=== PATIENT | female | born 1990 | race Caucasian/White ===

== ENCOUNTER 2019-08-22 11:49 | Outpatient (CLI) | payer OTHER, SELFPAY | END 2019-08-22 11:50 | disposition home or self-care (01) | PROVIDERS: PCP Family Medicine; Visit Provider Dentist | DX: Z01.818 Encounter for other preprocedural examination (principal); Z11.59 Encounter for screening for other viral diseases | CPT/HCPCS: 87635; U0003 ==

== ENCOUNTER 2019-08-25 01:09 | Day surgery (SDC) | payer OTHER, SELFPAY ==
[2019-04-29 10:34] VITALS: BMI 17.5
--- NOTE | 2019-08-17 18:04 | PC.NURSE ---
Patient called at 1740. History and meds reviewed. Patient states, no changes.
[2019-08-25] VITALS (13 sets, daily range): BP systolic 99–129; BP diastolic 55–88; PULSE 65–120; RESP 14–26; TEMP 36.3–36.8; O2SAT 95–100
[2019-08-25] MEDS: LACTATED RINGERS 1,000 ML 30 ML IV CONT ×2 (06:30→08:17)
--- NOTE | 2019-08-25 06:42 | P.PNAN_ITS ---
Anes - Initial Pre Proc Eval Procedure: Operation Date: 08/25/19 07:30 Proposed Procedures p Extraction Five Impacted Teeth - Srikanth Hudson DMD Date/Time: 08/25/19 06:42 Surgeon: Srikanth Hudson DMD Pre Op Diagnosis: Impacted Teeth, Dental Caries Patient Data Age: 29 Gender: F Height: 1.7 m Weight: 53.4 kg Last Vital Signs Temp 36.8 C 08/25/19 06:13 Pulse 83 08/25/19 06:13 Resp 16 08/25/19 06:13 BP 99/65 L 08/25/19 06:13 Pulse Ox 99 08/25/19 06:13 Allergies Allergy/AdvReac Type Severity Reaction Status Date / Time Penicillins Allergy Unknown UNKNOWN Unverified 08/25/19 06:22 REACTION tari Allergy THROAT Verified 08/25/19 06:22 SWELLING, FACIAL SWELLING Home Medications Medication Instructions Recorded Confirmed Type calcium carbonate-vitamin D3 1 tablet PO BID 04/29/19 08/25/19 History [Calcium 500 + D] dicyclomine 10 mg PO TID 04/29/19 08/25/19 History levetiracetam [Keppra] 1,500 mg PO BID 04/29/19 08/25/19 History eslicarbazepine [Aptiom] 600 mg PO DAILY 06/08/19 08/25/19 History Patient hx anesthesia problems: none Family hx anesthesia problems: none [facility] Past Medical History Medical History (Updated 08/25/19 @ 06:43 by Travis Fatima DO) IBS (irritable bowel syndrome) Seizure epilepsy, last one one month ago (focal seizure) takes daily meds Social History Social History (Updated 08/25/19 @ 06:43 by Travis Fatima DO) Substance use type: marijuana Other substance usage details: daily Anes - Eval Final PreProcedure Day of Procedure 08/25/19 06:42 Patient weight: thin Heart: regular rate and rhythm Lungs: clear to auscultation and normal air movement Airway: Mallampati scale class II Neurological: alert and oriented Last oral intake: >/= 8 hours ASA classification: III Emergent: no Anesthetic plan: proceed Anesthesia type and monitoring: general ETT and standard monitoring Informed Consent: The patient's anesthetic plan and its attendant risks and benefits were discussed with the patient/family/POA. Questions were solicited and answers provided to the satisfaction of the patient/family/POA.
--- NOTE | 2019-08-25 07:38 | PM.IMHP ---
H&P: HPI History of Present Illness Chief complaint: Impacted Teeth, Dental Caries Narrative: Melissa hSin is a 29 year old female referred for removal ,,,32 PMFSH Past Medical History Medical History (Updated 08/25/19 @ 07:39 by Srikanth Hudson, DMITRY) IBS (irritable bowel syndrome) Seizure epilepsy, last one one month ago (focal seizure) takes daily meds Social History Social History (Updated 08/25/19 @ 06:43 by Travis Fatima, ) Substance use type: marijuana Other substance usage details: daily Meds Home Medications and Allergies Home Medications Medication Instructions Recorded Confirmed Type calcium carbonate-vitamin D3 1 tablet PO BID 04/29/19 08/25/19 History [Calcium 500 + D] dicyclomine 10 mg PO TID 04/29/19 08/25/19 History levetiracetam [Keppra] 1,500 mg PO BID 04/29/19 08/25/19 History eslicarbazepine [Aptiom] 600 mg PO DAILY 06/08/19 08/25/19 History Allergies Allergy/AdvReac Type Severity Reaction Status Date / Time Penicillins Allergy Unknown UNKNOWN Unverified 08/25/19 06:22 REACTION tari Allergy THROAT Verified 08/25/19 06:22 SWELLING, FACIAL SWELLING Vital Signs Vital Signs - 24 hr 08/25/19 06:13 Temperature 36.8 C Pulse Rate 83 Respiratory Rate 16 Blood Pressure 99/65 L Pulse Oximetry 99 Assessment and Plan Assessment and plan (1) Non-restorable tooth: Code(s): K08.89 - Other specified disorders of teeth and supporting structures Status: Acute Assessment and Plan: sr 1,16,17,32
[2019-08-25] MEDS: LIDOCAINE 2%-EPI (FOR DENTAL BLOCK) 1.7 ML CARTRIDGE INFILTRATE (07:59)
[2019-08-25] MEDS: ONDANSETRON INJ 4 MG/2 ML VIAL IV PUSH (08:51)
--- NOTE | 2019-08-25 09:04 | PM.PROC ---
Procedure Note - Detailed Date of procedure: 08/25/19 Pre-op diagnosis: Impacted Teeth, Dental Caries Surgeon: Srikanth Hudson DMD Patient is encountered the [employer] the anesthesia service induced a general anesthetic. Patient was draped in usual manner for an intraoral surgical procedure. Oral cavity suctioned free of debris and throat pack was placed. Local anesthetic administered. Fifteen blade was used to make a 3rd incision FT 1. Full-thickness flaps would buckle. Bone overlying the tooth was removed and the tooth was removed using elevator forceps technique without complication and the wound was curetted free of debris and irrigated copious amount sterile saline. Attention was turned to the area 16. Which was extracted in identical fashion. Attention was turned to the ear 17. Ref 3rd molar incision was made and a full-thickness flap was elevated to the buccal. Buccal trough was created in the tooth was sectioned into mesial distal halves removed using elevator and forceps technique without complication. Socket care free of debris and irrigated copious amount sterile saline. Of note the lingual plate was missing in the area of the crown of 17. Attention was turned to tooth number 32 which was extracted identical fashion and the same lingual plate defect was observed. Oral cavity suctioned free of debris and throat pack was removed. Ghost gauze plaques were placed and the patient was extubated and transferred recovery stable condition.
--- NOTE | 2019-08-25 09:50 | SUR.PHASEI ---
0945; PT TEARFUL. C/O PAIN TO LT SIDE OF MOUTH. SM AMT BLEEDING FROM MOUTH. BILAT GAUZE WESTON CHANGED PRN. PT ALSO C/O NAUSEA. MEDICATIONS GIVEN PRN.
--- NOTE | 2019-08-25 09:56 | SUR.PHASEI ---
0956; PT AWAKE AND ALERT. CALMER NOW. STATES PAIN BETTER AND NAUSEA IS RELIEVED. RESP EVEN UNLABORED.
--- NOTE | 2019-08-25 10:03 | SUR.PHASEI ---
LATE NOTED. CARE ASSUMED OF PT AT 0915; PT HAD 100ML OF LR LEFT TO COUNT IN 1LITER BAG OF IVF.
--- NOTE | 2019-08-25 10:05 | SUR.PHASEI ---
1005; PT AWAKE AND ALERT. CALM. DENIES NAUSEA. STATES PAIN MILD AND TOLERABLE. READY FOR A POPSICLE.
[2019-08-25] MEDS: MIDAZOLAM HCL 2 MG/2 ML VIAL IV PUSH (11:12)
== END 2019-08-25 11:44 | disposition home or self-care (01) ==
PROVIDERS: PCP Family Medicine; Visit Provider Dentist
PROC: (CPT 41899; principal; 2019-08-25 07:30)
DX: K01.1 Impacted teeth (principal); K02.9 Dental caries, unspecified; G40.909 Epilepsy, unspecified, not intractable, without status epilepticus; K58.9 Irritable bowel syndrome, unspecified; F12.90 Cannabis use, unspecified, uncomplicated
CPT/HCPCS: D7240 ×4; A9270; J0330; J1100; J1200; J2250; J2405; J2704; J3010; J7120

== ENCOUNTER 2022-05-04 14:49 | Emergency (ER) | payer OTHER, SELFPAY ==
--- NOTE | ~2022-05-04 | CT_ITS ---
EXAMINATION: CT abdomen pelvis w con DATE: 05/04/2022 22:20 INDICATION: Epigastric abdominal pain. Nausea and vomiting. TECHNIQUE: Computed tomography (CT) of the abdomen and pelvis was performed with 100 mL Omnipaque 350 intravenous contrast. Automated exposure control and iterative reconstruction technique were employe d. The dose-length product was 184.54 mGy-cm. COMPARISON: None. FINDINGS: The visualized portions of the lung bases demonstrate bronchiectasis and mucous plugging in left lower lobe. No pleural effusion. The heart size is normal. No pericardial effusion. There is pe riportal edema in the liver. The gallbladder, spleen, pancreas, adrenal glands, and kidneys are bhavani l. There is an intrauterine device in abnormally low position. The prongs enter the myometrium. The p eriuterine veins and left ovarian vein are enlarged, consistent with pelvic venous insufficiency. The re are no dilated loops of bowel. The appendix is normal. There are no pathologically enlarged lymph nodes. There is physiologic fluid in the pelvis. There is mild thoracic spondylosis. IMPRESSION: 1. Intrauterine device in abnormal position. 2. Pelvic venous insufficiency. Reviewed, dictated and finalized at location A. HEALTH OUTREACH COORDINATOR
--- NOTE | 2022-05-04 14:54 | ECG_ITS ---
Measurements Intervals [place] Rate: 79 P: 92 OR: 145 QRS: 47 QRSD: 73 T: -12 QT: 353 QTc: 407 Interpretive Statements SINUS RHYTHM POSSIBLE RIGHT ATRIAL ENLARGEMENT POSSIBLE LEFT ATRIAL ENLARGEMENT BORDERLINE ST-T WAVE ABNORMALITY- INF/LAT LEADS BASELINE ARTIFACT- I, II, III, AVR, AVL, AVF, V1-V6 BORDERLINE ECG NO PREVIOUS ECG AVAILABLE FOR COMPARISON Electronically Signed On 05-04-2022 15:21:38 NETWORK ASSOCIATE by Kyler Guzman D.O.
[2022-05-04 15:14] VITALS: BP 117/60; PULSE 68; RESP 15; TEMP 36.6
[2022-05-04 17:09] VITALS: PULSE 94
[2022-05-04 17:11] VITALS: BP 108/81; PULSE 96; RESP 18; O2SAT 100
[2022-05-04 17:29] LABS: Basophils Percent Auto 0.2 % (0.2-1.2); Hematocrit 41.5 % (37.0-47.0); Hemoglobin 14.2 g/dL (12.0-15.0); Immature Granulocyte Absolute 0.06 K/mm3 (0.00-0.031); Immature Granulocyte Percent A 0.4 % (0-0.5); Lymphocytes Absolute Auto 0.87 K/mm3 (0.9-3.2); Lymphocytes Percent Auto 6.1 % (18.3-44.2); Mean Corpuscular HGB Conc 34.2 g/dl (32-36); Mean Corpuscular Hemoglobin 34.5 pg (26-34); Mean Corpuscular Volume 100.7 fl (80-100); Mean Platelet Volume 10.8 fl (7.4-10.4); Monocytes Absolute Auto 0.7 K/mm3 (0.1-0.6); Neutrophils Absolute Auto 12.6 K/mm3 (1.3-6.7); Neutrophils Percent Auto 88.3 % (45.5-73.1); Platelet Count Result 198 k/mm3 (150-375); Red Blood Count 4.12 M/mm3 (4.2-5.4); Red Cell Distribution Width 12.4 % (11.5-14.5); White Blood Count 14.3 K/mm3 (4.5-10.0)
--- NOTE | 2022-05-04 17:30 | ED.SEIZURE ---
HPI - Seizure General Chief Complaint: Seizure Stated Complaint: SEIZURES, PANIC ATTACKS Time Seen by Provider: 05/04/22 17:13 Source: patient Mode of arrival: ambulatory Limitations: no limitations History of Present Illness HPI Narrative: This is a 32 year old female that presents to the ER for increasing anxiety. Reports she has been having panic attacks all day. Reports feelings of doom. Reports nausea, vomiting and tingling in her hands. She does not take any medications for anxiety currently. She was given a referral to psychology by her neurologist, but she has not seen them yet. She also reports she had two seizures this morning. Reports she has not been fully compliant with her seizure medications. She did not take it this morning or tonight. Denies fever, chest pain or shortness of breath. Seizure History: Yes (SIMPLE PARTIAL SEIZURES- LAST SEIZURE 04/27/19) Related Data Allergies Allergy/AdvReac Type Severity Reaction Status Date / Time Penicillins Allergy Unknown UNKNOWN Verified 05/04/22 17:10 REACTION tari Allergy THROAT Verified 05/04/22 17:10 SWELLING, FACIAL SWELLING Review of Systems Review of Systems: CONSTITUTIONAL: Denies fever CARDIOVASCULAR: Denies chest pain RESPIRATORY: Denies dyspnea. GASTROINTESTINAL: Reports abdominal pain, nausea, vomiting. Denies diarrhea. GENITOURINARY: Denies dysuria or hematuria. PSYCHIATRIC: Reports anxiety All systems reviewed & are unremarkable except as noted in HPI and below PMFSH Past Medical History Medical History IBS (irritable bowel syndrome) Seizure epilepsy, last one one month ago (focal seizure) takes daily meds Social History Social History (Updated 03/04/22 @ 09:26 by Karon Bojorquez MA) Social History: current smoker Smoking status: Unknown if ever smoked Alcohol intake: never Substance use type: marijuana Other substance usage details: daily Lack of Transportation: No Lack of Food: Never True Current Housing: I Have Housing Concerned About Future Housing: No Difficulty Paying Gas/Electric Bills: No Difficulty Paying for Meds: No Currently Unemployed: No Education: High School Diploma/GED Difficulty w/ Childcare or Family Care: No Exam Narrative: GENERAL: Well-appearing, well-nourished, anxious HEAD: Normocephalic, atraumatic. EYES: PERRLA and EOMI. ENT: Nares clear, no rhinorrhea or epistaxis. Mucous membranes moist. Oropharynx without tonsillar hypertrophy exudate or other lesions. CHEST: Clear to auscultation. No respiratory distress. No wheezes rales or rhonchi HEART: Regular rate and rhythm. No murmur heard. Normal peripheral pulses. ABDOMEN: Soft, nondistended, normal active bowel sounds. Mild tenderness to palpation in epigastrium, without guarding EXTREMITIES: Normal range of motion. No edema. SKIN: Warm, dry, no rash. NEURO: No focal deficits. Alert and oriented x3. PSYCH: Anxious Course Vital Signs Vital signs: Vital Signs Temperature 98 F 05/04/22 15:14 Pulse Rate 68 05/04/22 15:14 Respiratory Rate 15 05/04/22 15:14 Blood Pressure 117/60 05/04/22 15:14 Oxygen Delivery Room Air 05/04/22 15:14 Temperature 98 F 05/04/22 15:14 Pulse Rate 79 05/04/22 22:40 Respiratory Rate 20 05/04/22 22:40 Blood Pressure 109/89 05/04/22 20:34 Pulse Oximetry 97 05/04/22 22:40 Oxygen Delivery Room Air 05/04/22 15:14 MDM - Seizure MDM Narrative Medical decision making narrative: Patient presents emergency department for increasing anxiety today. Quite anxious on arrival, given a dose of Ativan with improvement. Also reporting nausea and vomiting and some epigastric abdominal discomfort. She is afebrile and nontoxic-appearing. Her vitals are stable. She is reporting she had had a seizure this morning. She has known history of seizure disorder. She has not been totally compliant with her antiepilep
[2022-05-04 17:43] LABS: Magnesium 1.8 mg/dL (1.6-2.3)
[2022-05-04] MEDS: SODIUM CHLORIDE 0.9% IV 1,000 ML 999 ML IV CONT ×2 (17:48→21:09)
[2022-05-04] MEDS: ONDANSETRON INJ 4 MG/2 ML VIAL IV PUSH (17:48)
[2022-05-04] MEDS: FAMOTIDINE 20 MG/2 ML VIAL IV PUSH (17:49)
[2022-05-04 17:50] LABS: Alanine Aminotransferase 20 U/L (6-35); Albumin Level 4.2 g/dL (3.5-5.1); Alkaline Phosphatase 86 U/L (38-126); Anion Gap 10 mmol/L (8-16); Aspartate Amino Transferase 25 U/L (14-36); Bilirubin,Total 0.6 mg/dL (0.2-1.3); Blood Urea Nitrogen 8 mg/dL (7-17); Calcium 8.8 mg/dL (8.4-10.2); Carbon Dioxide 22 mmol/L (22-30); Chloride 106 mmol/L (98-107); Estimated CRCL calculation 103 ml/min; Estimated Glomerular Filt Rate > 60; Glucose 130 mg/dL (65-110); Lipase 102 U/L (23-300); Potassium 3.7 mmol/L (3.4-5.0); Sodium 138 mmol/L (137-145)
[2022-05-04] MEDS: LORazepam INJ (*CRX) 2 MG/ML VIAL 1 MG IV PUSH (17:53)
[2022-05-04 17:55] LABS: Ovalocytes 1+ (NORMAL); Platelet Estimate Adequate (Adequate); Schistocytes None Seen (NORMAL)
[2022-05-04 18:36] LABS: Thyroid Stimulating Hormone Reflex 0.459 uIU/mL (0.465-4.68)
[2022-05-04 18:44] VITALS: BP 99/73; PULSE 84; RESP 22; O2SAT 100
--- NOTE | 2022-05-04 18:46 | PC.NURSE ---
patient asked for urine sample and unable to urinate at this time, declines straight cath.
[2022-05-04 19:06] LABS: Free T4 Free Thyroxine Reflex 1.75 ng/dL (0.78-2.19)
[2022-05-04 19:55] LABS: Total Triiodothyronine (T3) 1.49 NG/ML (0.97-1.69)
[2022-05-04 20:34] VITALS: BP 109/89; PULSE 60; RESP 20; O2SAT 100
[2022-05-04 20:45] LABS: Appearance Urine Cloudy (Clear); Bilirubin Urine Negative (Negative); Blood Urine Negative (Negative); Color Urine Yellow (Yellow); Glucose Urine UA Negative (Negative); Ketones Urine 3+ mg/dL (Negative); Leukocyte Esterase Ur Negative LEU/UL (Negative); Nitrate Urine Negative (Negative); Protein Urine 1+ mg/dL (Negative); Specific Grav Ur 1.015 (1.001-1.035); Urobilinogen Urine 0.2 mg/dL (<2.0); pH Urine >=9.0 (5.0-9.0)
[2022-05-04 20:56] LABS: Mucus Urine Few /lpf; Squamous Epithelial Cell Urine Many /hpf (Few)
[2022-05-04 21:02] LABS: Add Urine Microscopic? YES
[2022-05-04 22:40] VITALS: PULSE 79; RESP 20; O2SAT 97
== END 2022-05-04 23:12 | disposition home or self-care (01) ==
PROVIDERS: Emergency Provider Physician Assistant; PCP Family Medicine
DX: F41.9 Anxiety disorder, unspecified (principal); G40.909 Epilepsy, unspecified, not intractable, without status epilepticus; R11.2 Nausea with vomiting, unspecified; T42.76XA Underdosing of unspecified antiepileptic and sedative-hypnotic drugs, initial encounter; Z91.128 Patient's intentional underdosing of medication regimen for other reason; R94.31 Abnormal electrocardiogram [ECG] [EKG]; T83.32XA Displacement of intrauterine contraceptive device, initial encounter; I87.2 Venous insufficiency (chronic) (peripheral)
CPT/HCPCS: 36415; 74177; 80053; 81001; 81025; 83690; 83735; 84439; 84443; 84480; 85025; 93005; 96361; 96365; 96375; 99284; J0131; J1953; J2060; J2405; J7030; Q9967

== ENCOUNTER 2023-01-23 08:24 | Emergency (ER) | payer OTHER, SELFPAY ==
[2023-01-23 08:30] VITALS: BP 109/82; PULSE 90; RESP 16; TEMP 36.6; O2SAT 100
--- NOTE | 2023-01-23 09:06 | ED.EAR ---
HPI - Ear Problem General Chief complaint: Ear Stated complaint: flue symptoms/ear pain Source: patient and RN notes reviewed History of Present Illness HPI Narrative: 32 yo F presents to urgent care with complaints of bilateral ear fullness and itchiness, mostly in the left ear. Pt states this has been going on for a couple months. Pt states she has now been running a fever for the last couple days and has had an itchy throat. Pt denies any chest pain, SOB, head congestion, N/V, or abdominal pain. Pt has had some diarrhea but contributes this to her recent bad diet and/or nerves. Related Data Allergies Allergy/AdvReac Type Severity Reaction Status Date / Time Penicillins Allergy Unknown UNKNOWN Verified 01/23/23 09:05 REACTION tari Allergy THROAT Verified 01/23/23 09:05 SWELLING, FACIAL SWELLING Review of Systems Review of Systems: Pertinent positives and pertinent negatives per HPI. [facility] Past Medical History Medical History IBS (irritable bowel syndrome) Seizure epilepsy, last one one month ago (focal seizure) takes daily meds Social History Social History (Updated 08/22/22 @ 09:41 by Nataliya Mccarthy MA) Social History: current smoker Smoking status: Current every day smoker Alcohol intake: never Substance use: current Substance use type: marijuana Other substance usage details: daily Lack of Transportation: No Lack of Food: Never True Current Housing: I Have Housing Concerned About Future Housing: No Difficulty Paying Gas/Electric Bills: No Difficulty Paying for Meds: No Currently Unemployed: No Education: High School Diploma/GED Difficulty w/ Childcare or Family Care: No Living arrangements: with family Gender identity (if verbalized by the patient): Female Comments At the time of my signature, I reviewed and agree with the nursing past medical, surgical, social, and family history. There is no relevant family history pertinent to the patient complaint. Exam Narrative: GENERAL: This is a well-nourished, well-developed patient, in no apparent distress. HEAD: normocephalic, atraumatic. EYES: Sclera clear/white. Vision is grossly intact. EARS: External ears normal, auditory canals clear and without drainage, TMs without perforation or erythema. Hearing grossly intact. Effusion noted behind left TM. NOSE: External nose normal with no obvious nasal discharge, nares without redness, no rhinorrhea. THROAT: Mucous membranes moist, posterior pharynx clear. NECK: Neck supple, non-tender without lymphadenopathy, masses or thyromegaly. CARDIOVASCULAR: Regular rate and rhythm without murmurs, gallops, or rubs. RESPIRATORY: Clear to auscultation. Breath sounds equal bilaterally. No wheezes, rales, or rhonchi. SKIN: warm, intact with no suspicious lesions or rash, good texture and turgor. NEURO: awake, alert, and oriented to person, place and time. There were no obvious focal neurologic abnormalities. Course Course Level of Care: Express Care Visit Vital Signs Vital signs: Vital Signs Temperature 98 F 01/23/23 08:30 Pulse Rate 90 01/23/23 08:30 Respiratory Rate 16 01/23/23 08:30 Blood Pressure 109/82 01/23/23 08:30 Pulse Oximetry 100 01/23/23 08:30 Oxygen Delivery Room Air 01/23/23 08:30 Temperature 98 F 01/23/23 08:30 Pulse Rate 90 01/23/23 08:30 Respiratory Rate 16 01/23/23 08:30 Blood Pressure 109/82 01/23/23 08:30 Pulse Oximetry 100 01/23/23 08:30 Oxygen Delivery Room Air 01/23/23 08:30 reviewed Medical Decision Making MDM Narrative Medical decision making narrative: Take the Flonase as directed. May take an antihistamine daily to help. Differential Diagnosis Differential Diagnosis: serous otitis media, AOM, viral illness, strep throat Vital Signs Vital Signs: Vital Signs Temperature 98 F 01/23/23 08:30 Pulse Rate 90
== END 2023-01-23 09:27 | disposition home or self-care (01) ==
PROVIDERS: Emergency Provider Nurse Practitioner Family
DX: H65.02 Acute serous otitis media, left ear (principal); F17.200 Nicotine dependence, unspecified, uncomplicated; F12.90 Cannabis use, unspecified, uncomplicated
CPT/HCPCS: 87081; 87880; 99213; G0463

== ENCOUNTER 2023-02-09 08:55 | Emergency (ER) | payer OTHER, SELFPAY ==
[2023-02-09 09:16] VITALS: BP 107/69; PULSE 103; RESP 20; TEMP 36.7; O2SAT 98
--- NOTE | 2023-02-09 10:04 | ED.URI ---
HPI - URI/Sore Throat General Chief Complaint: Upper Respiratory Infection Stated Complaint: fever/throat/diarrhea/nausea Time Seen by Provider: 02/09/23 10:04 Source: patient and RN notes reviewed Mode of arrival: ambulatory Limitations: no limitations History of Present Illness HPI Narrative: 32-year-old female presented for complaint of sinus congestion and drainage, cough, diarrhea and fever up to 100 over the past few days. Cough is productive of brown sputum. Taking Benadryl for symptoms. Denies sob, wheezing, vomiting, or lethargy. Denies sick contacts. Smokes 1/2ppd and marijuana. Patient also reports anxiety and history of seizures, scheduled with neuro in 2 days. MD elicited complaint: cough Related Data Allergies Allergy/AdvReac Type Severity Reaction Status Date / Time Penicillins Allergy Unknown UNKNOWN Verified 02/09/23 09:51 REACTION tari Allergy THROAT Verified 02/09/23 09:51 SWELLING, FACIAL SWELLING Review of Systems Review of Systems: CONSTITUTIONAL: Denies malaise, chills, sweats, Reports fever EYES: Denies visual changes, redness, or discharge ENT: Reports rhinorrhea, congestion, deniessinus pain, otalgia, sore throat CARDIOVASCULAR: Denies chest pain, palpitations, edema RESPIRATORY: Reports cough, post nasal drainage. Denies dyspnea GASTROINTESTINAL: Denies abdominal pain, nausea, vomiting, diarrhea SKIN: Denies rash or itching MUSCULOSKELETAL: denies myalgia NEUROLOGIC: reports headache PMFSH Past Medical History Medical History IBS (irritable bowel syndrome) Seizure epilepsy, last one one month ago (focal seizure) takes daily meds Social History Social History Social History: current smoker Smoking status: Current every day smoker Alcohol intake: never Substance use: current Substance use type: marijuana Other substance usage details: daily Lack of Transportation: No Lack of Food: Never True Current Housing: I Have Housing Concerned About Future Housing: No Difficulty Paying Gas/Electric Bills: No Difficulty Paying for Meds: No Currently Unemployed: No Education: High School Diploma/GED Difficulty w/ Childcare or Family Care: No Living arrangements: with family Gender identity (if verbalized by the patient): Female Exam Narrative: GENERAL: well-appearing HEAD: Normocephalic EYES: PERRLA, conjunctivae clear ENT: Mucous membranes moist. TMs pearly reza with dull light reflex bilaterally; no tragal tenderness. Oropharynx mildly erythematous without lesions or exudate, no drooling, no hoarseness, no trismus, uvula midline. No tripod positioning, muffled voice, soft palate or pharyngeal wall bulging NECK: Supple. No lymphadenopathy CHEST: Clear to auscultation, breath sounds equal. occasional productive cough. No wheezing, rhonchi, rales, or stridor. No respiratory distress, speaks in full sentences. HEART: Regular rate and rhythm. No murmur heard. SKIN: Warm, dry, no rash. NEURO: Alert and oriented x3. PSYCH: Normal mood and affect Course Course Emergency Course: Patient is aware of diagnosis, understands and agrees to treatment plan. Anticipatory guidance given. Patient agrees to follow-up as directed and is aware of reasons to seek care at the emergency department. Portions of this record may have been created with voice recognition software Level of Care: Express Care Visit Vital Signs Vital signs: Vital Signs Temperature 98.1 F 02/09/23 09:16 Pulse Rate 103 H 02/09/23 09:16 Respiratory Rate 20 02/09/23 09:16 Blood Pressure 107/69 02/09/23 09:16 Pulse Oximetry 98 02/09/23 09:16 Oxygen Delivery Room Air 02/09/23 09:16 Temperature 98.1 F 02/09/23 09:16 Pulse Rate 103 H 02/09/23 09:16 Respiratory Rate 20 02/09/23 09:16 Blood Pressure 107/69 02/09/23 09:16 Pul
== END 2023-02-09 10:21 | disposition home or self-care (01) ==
PROVIDERS: Emergency Provider Nurse Practitioner Family
DX: J06.9 Acute upper respiratory infection, unspecified (principal); Z20.822 Contact with and (suspected) exposure to COVID-19; F17.200 Nicotine dependence, unspecified, uncomplicated; F12.90 Cannabis use, unspecified, uncomplicated
CPT/HCPCS: 87081; 87426; 87804; 87880; 99213; C9803; G0463

== ENCOUNTER 2023-05-03 18:19 | Emergency (ER) | payer OTHER, SELFPAY ==
--- NOTE | ~2023-05-03 | XR_ITS ---
EXAMINATION: XR chest 2V Exam Date/Time: 05/03/2023 18:58 PRE SALES TECHNICAL ENGINEER HISTORY: COUGH X 3 DAYS. SMOKER. Comparison: 10/21/2014. RESULT: Lines, tubes, and devices: None. Lungs and pleura: Small right pneumothorax. No focal consolidation or effusion. Cardiomediastinal silhouette: Stable. Other: No acute upper abdominal finding. Mild height loss at T9, new since the prior study. Mild ant erior wedge deformity at T8, stable. IMPRESSION: Small right pneumothorax. Mild height loss at T9, presumably chronic unless accompanied by acute pain/tenderness. Results reported telephonically to TL Lambert by Dr. Bee at 7:18 PM on 05/03/2023. Reviewed, dictated and finalized at location K. SALES TECHNICAL ENGINEER IMPRESSION: Small right pneumothorax. Mild height loss at T9, presumably chronic unless accompanied by acute pain/ten derness. Results reported telephonically to TL Lambert by Dr. Bee at 7:18 PM o n 05/03/2023.
[2023-05-03 18:25] VITALS: BP 111/77; PULSE 74; RESP 20; TEMP 36.8; O2SAT 100
--- NOTE | 2023-05-03 19:16 | ED.GENADULT ---
HPI - General Adult General Chief complaint: Upper Respiratory Infection Stated complaint: cough now hurting chest up neck Source: patient Mode of arrival: ambulatory Limitations: no limitations History of Present Illness HPI narrative: Patient presents for evaluation of right sided chest and back pain since 1630 today. She indicates she has had sinus symptoms including sinus congestion and clear rhinorrhea for last 3 days. She developed a fever which she has had intermittently for the past three days. She has alternated ibuprofen and tylenol for her symptoms. She had a history of epilepsy and had a seizure three days ago. This evening when attempting to cook italian style food, she cleared her throat and developed pain in the right side of her chest and back. She now reports discomfort in those areas with inspiration. She denies shortness of breath per se but has been taking shallow breaths as a result of that. She rates her pain 6/10 in severity. She smokes approximately half a pack a cigarettes per day and also smokes marijuana. Related Data Home Medications Medication Instructions Recorded Confirmed hydroxyzine HCl 25 mg tablet See Rx Instructions .Route .COMPLEX 05/03/23 05/03/23 levonorgestrel-ethinyl estradiol 1 tablet PO DAILY 05/03/23 05/03/23 90 mcg-20 mcg (28) tablet (Laura (28)) Allergies Allergy/AdvReac Type Severity Reaction Status Date / Time Penicillins Allergy Unknown UNKNOWN Verified 05/03/23 18:53 REACTION tari Allergy THROAT Verified 05/03/23 18:53 SWELLING, FACIAL SWELLING Review of Systems Review of Systems: CONSTITUTIONAL: Reports fever. Denies sweats EYES: Denies visual changes, redness, or discharge. ENT: Reports sinus congestion and nasal drainage CARDIOVASCULAR: Reports chest pain. Denies palpitations, or edema. RESPIRATORY: Reports cough. denies shortness of breath. GASTROINTESTINAL: Denies abdominal pain, nausea, vomiting, or diarrhea. GENITOURINARY: Denies dysuria or hematuria. SKIN: Denies rash or itching. MUSCULOSKELETAL: Reports back pain, joint pain, or myalgia. NEUROLOGIC: Denies headache, numbness, dizziness, or weakness. PSYCHIATRIC: reports anxiety. [facility] Past Medical History Medical History (Updated 05/03/23 @ 20:01 by Karson Chandler, CLINICIAN ONCOLOGY, [place]) IBS (irritable bowel syndrome) Seizure epilepsy, last one one month ago (focal seizure) takes daily meds Surgical History Surgical History No pertinent past surgical history Family History Family History Mother Family history non-contributory Social History Social History Social History: current smoker Smoking packs per day: 0.5 Smoking cigarettes per day: 10.0 Smoking status: Current every day smoker Alcohol intake: never Substance use: current Substance use type: marijuana Other substance usage details: daily Lack of Transportation: No Lack of Food: Never True Current Housing: I Have Housing Concerned About Future Housing: No Difficulty Paying Gas/Electric Bills: No Difficulty Paying for Meds: No Currently Unemployed: No Education: High School Diploma/GED Difficulty w/ Childcare or Family Care: No Living arrangements: with family Additional occupation/education comments: lives with boyfriend Gender identity (if verbalized by the patient): Female Sexual Orientation (if Verbalized by the Patient): Straight or Heterosexual Spiritual care concerns: No Exam Narrative: GENERAL: Well-appearing, well-nourished, and in no acute distress. HEAD: Normocephalic, atraumatic. EYES: PERRLA and EOMI. ENT: Nares clear, no rhinorrhea or epistaxis. Mucous membranes moist. Oropharynx without tonsillar hypertrophy exudate or other lesions. Bilateral TMs pearly reza nonbulg
== END 2023-05-03 19:40 | disposition short-term general hospital (02) ==
PROVIDERS: Emergency Provider Nurse Practitioner
DX: J93.9 Pneumothorax, unspecified (principal); Z20.822 Contact with and (suspected) exposure to COVID-19; G40.909 Epilepsy, unspecified, not intractable, without status epilepticus; F17.210 Nicotine dependence, cigarettes, uncomplicated
CPT/HCPCS: 71046; 87426; 87804; 99215; G0463

== ENCOUNTER 2023-05-03 20:23 | Emergency (ER) | payer OTHER, SELFPAY ==
[2023-05-03] VITALS (34 sets, daily range): BP systolic 97–122; BP diastolic 60–88; PULSE 60–89; RESP 9–28; TEMP 36.8; O2SAT 95–100
--- NOTE | ~2023-05-03 | XR_ITS ---
Clinical Indication: Broken chest tube PA and lateral views of the chest: Comparison: 05/04/2023 at 4:28 AM Findings: Very small right apical pneumothorax present. There is a length of chest tube/catheter over lying the right mid to upper chest measuring approximately 11 cm in length, oriented relatively trans versely, consistent with history of broken chest tube. Left lung clear. Cardiomediastinal silhouette is within normal limits. Bones and soft tissues are unremarkable. Impression: 11 cm length of fragment/fractured chest tube projecting over the mid to upper right chest. Small right apical pneumothorax. Reviewed, dictated and finalized at location M. LLITE MANAGER Impression: 11 cm length of fragment/fractured chest tube projecting over the mid to upper right chest. Small right apical pneumothorax.
--- NOTE | ~2023-05-03 | XR_ITS ---
Portable chest x-ray Comparison: 05/04/2023 Clinical History: Chest tube, thoracentesis Findings: Previously noted right pneumothorax is nearly completely resolved, probable tiny residual right apical pneumothorax present. Left lung clear. Possible small bore right-sided chest tube presen t. Cardiomediastinal silhouette is stable. Bones and soft tissues are unremarkable. Impression: Tiny residual right apical pneumothorax. Suspected small bore right-sided chest tube present. Reviewed, dictated and finalized at location M. INE FEEDER RAW STOCK Impression: Tiny residual right apical pneumothorax. Suspected small bore right-sided chest tube present.
--- NOTE | ~2023-05-03 | XR_ITS ---
EXAMINATION: XR chest 1V portable Exam Date/Time: 05/03/2023 20:50 MANAGER CLINICAL RESEARCH HISTORY: Chest pain, right pneumo? SEEN ON PREVIOUS OUTSIDE XRAY Comparison: Same date at 7:09 PM. FINDINGS/IMPRESSION: Stable small right pneumothorax. Reviewed, dictated and finalized at location K. GER CLINICAL RESEARCH
--- NOTE | ~2023-05-03 | XR_ITS ---
Portable chest x-ray Comparison: 05/03/2023 Clinical History: Pneumothorax Findings: Moderate right pneumothorax again present, with suspected a minimally enlarged from prior exam. No other pulmonary abnormality evident. Cardiomediastinal silhouette is stable. Bones and soft tissues are unremarkable. Impression: Moderate right pneumothorax, likely minimally increased from prior exam. Reviewed, dictated and finalized at [facility]. ANALYST Impression: Moderate right pneumothorax, likely minimally increased from prior exam.
--- NOTE | 2023-05-03 20:24 | ECG_ITS ---
Measurements Intervals [place] Rate: 72 P: 77 RI: 103 QRS: 76 QRSD: 78 T: -90 QT: 389 QTc: 426 Interpretive Statements SINUS RHYTHM WITH SHORT RI INTERVAL BORDERLINE ST-T WAVE ABNORMALITY- INF/LAT LEADS BASELINE ARTIFACT- I, II, III, AVR, AVL, AVF, V4-V6 BORDERLINE ECG COMPARED TO ECG 05/04/2022 15:07:14 NO SIGNIFICANT CHANGES Electronically Signed On 05-04-2023 6:04:30 OCEANOLOGY TEACHER by Kyler Guzman D.O.
[2023-05-03 20:47] LABS: Basophils Percent Auto 0.3 % (0.2-1.2); Eosinophils Absolute Auto 0.1 K/mm3 (0-0.3); Eosinophils Percent Auto 0.8 % (0-4.4); Hematocrit 41.7 % (37.0-47.0); Hemoglobin 13.5 g/dL (12.0-15.0); Immature Granulocyte Absolute 0.03 K/mm3 (0.00-0.031); Immature Granulocyte Percent A 0.3 % (0-0.5); Lymphocytes Absolute Auto 1.59 K/mm3 (0.9-3.2); Lymphocytes Percent Auto 14.3 % (18.3-44.2); Mean Corpuscular HGB Conc 32.4 g/dl (32-36); Mean Corpuscular Hemoglobin 33.5 pg (26-34); Mean Corpuscular Volume 103.5 fl (80-100); Mean Platelet Volume 11.3 fl (7.4-10.4); Monocytes Absolute Auto 0.7 K/mm3 (0.1-0.6); Monocytes Percent Auto 6.7 % (2.6-8.5); Neutrophils Absolute Auto 8.6 K/mm3 (1.3-6.7); Neutrophils Percent Auto 77.6 % (45.5-73.1); Platelet Count Result 193 k/mm3 (150-375); Red Blood Count 4.03 M/mm3 (4.2-5.4); Red Cell Distribution Width 12.3 % (11.5-14.5); White Blood Count 11.1 K/mm3 (4.5-10.0)
[2023-05-03] MEDS: HYDROmorphone HCL INJ (*CRX) 1 MG/ML SYR 0.5 MG IV PUSH (20:56)
[2023-05-03 20:58] LABS: Alanine Aminotransferase 12 U/L (6-35); Albumin Level 4.1 g/dL (3.5-5.1); Alkaline Phosphatase 72 U/L (38-126); Anion Gap 7 mmol/L (8-16); Aspartate Amino Transferase 21 U/L (14-36); Bilirubin,Total 0.3 mg/dL (0.2-1.3); Blood Urea Nitrogen 8 mg/dL (7-17); Calcium 8.4 mg/dL (8.4-10.2); Carbon Dioxide 21 mmol/L (22-30); Chloride 109 mmol/L (98-107); Estimated CRCL calculation 104 ml/min; Estimated Glomerular Filt Rate > 60; Glucose 91 mg/dL (65-110); INR 1.1; Lipase 66 U/L (23-300); Potassium 3.7 mmol/L (3.4-5.0); Prothrombin Time 14.6 Seconds (11.1-14.7); Sodium 137 mmol/L (137-145)
--- NOTE | 2023-05-03 20:58 | ED.GENADULT ---
HPI - General Adult General Chief complaint: Chest Pain Stated complaint: chest pain/R pneumothorax Time Seen by Provider: 05/03/23 20:36 History of Present Illness HPI narrative: This is a 33-year-old female cefdinir care for spontaneous pneumothorax. Patient has had URI symptoms for last 3 days. She coughed while she was in her kitchen and then developed sharp right-sided chest pain. She then went to the urgent care for evaluation was found to have a small pneumothorax on imaging. She was sent to the ER for further management. Patient smokes socially. At this time the patient is very anxious that she is having some trouble breathing due to pain. No other symptoms. Related Data Home Medications Medication Instructions Recorded Confirmed hydroxyzine HCl 25 mg tablet See Rx Instructions .Route .COMPLEX 05/03/23 05/03/23 levonorgestrel-ethinyl estradiol 1 tablet PO DAILY 05/03/23 05/03/23 90 mcg-20 mcg (28) tablet (Laura (28)) Allergies Allergy/AdvReac Type Severity Reaction Status Date / Time Penicillins Allergy Unknown UNKNOWN Verified 05/03/23 20:30 REACTION tari Allergy THROAT Verified 05/03/23 20:30 SWELLING, FACIAL SWELLING PMFSH Past Medical History Medical History IBS (irritable bowel syndrome) Seizure epilepsy, last one one month ago (focal seizure) takes daily meds Surgical History Surgical History No pertinent past surgical history Family History Family History Mother Family history non-contributory Social History Social History Social History: current smoker Smoking packs per day: 0.5 Smoking cigarettes per day: 10.0 Smoking status: Current every day smoker Alcohol intake: never Substance use: current Substance use type: marijuana Other substance usage details: daily Lack of Transportation: No Lack of Food: Never True Current Housing: I Have Housing Concerned About Future Housing: No Difficulty Paying Gas/Electric Bills: No Difficulty Paying for Meds: No Currently Unemployed: No Education: High School Diploma/GED Difficulty w/ Childcare or Family Care: No Living arrangements: with family Additional occupation/education comments: lives with boyfriend Gender identity (if verbalized by the patient): Female Sexual Orientation (if Verbalized by the Patient): Straight or Heterosexual Spiritual care concerns: No Exam Narrative: APPEARANCE: Anxious and tearful Head: atraumatic. EYES: EOMI, NOSE: Atraumatic NECK: Trachea midline RESPIRATORY: Slightly tachypneic, lung sounds bilaterally CARDIOVASCULAR: RRR, ABDOMINAL: Non-distended MUSCULOSKELETAl: No obvious deformities NEURO: Alert. Moving 4/4 extremities SKIN:: Warm, dry. Normal color PSYCHIATRIC: Normal affect Course Vital Signs Vital signs: Vital Signs Temperature 98.3 F 05/03/23 20:25 Pulse Rate 79 05/03/23 20:25 Respiratory Rate 22 H 05/03/23 20:25 Blood Pressure 97/74 L 05/03/23 20:25 Pulse Oximetry 100 05/03/23 20:25 Oxygen Delivery Room Air 05/03/23 20:25 Temperature 98.3 F 05/03/23 20:25 Pulse Rate 90 05/04/23 06:11 Respiratory Rate 22 H 05/04/23 06:11 Blood Pressure 103/76 05/04/23 06:11 Pulse Oximetry 100 05/04/23 06:11 Oxygen Delivery Non-Rebreather Mask 05/03/23 21:01 Oxygen Flow Rate 15 05/03/23 21:01 Procedures Chest Tube Chest Tube 1: Chest Tube Date: 05/04/23 Chest Tube Time: 04:15 Chest Tube Location: right, mid axillary line and fourth interspace Tube Type: other (Small bore catheter) Chest Tube Prep: Yes betadine prep and sterile drapes applied Anesthetic: bupivacaine 0.25% Amount of anesthesia used (mL): 10 Inci
[2023-05-03 20:59] LABS: Partial Thromboplastin Time 29.5 SECONDS (22.3-36.8)
[2023-05-03] MEDS: ACETAMINOPHEN 500 MG TABLET 1000 MG PO (21:11)
[2023-05-03] MEDS: KETOROLAC 15 MG/ML VIAL (*BKC) IV PUSH (21:12)
[2023-05-03] MEDS: OXcarbazepine 300 MG TABLET PO (21:43)
[2023-05-03] MEDS: levETIRAcetam 500 MG TABLET 1500 MG PO (21:43)
[2023-05-03] MEDS: ONDANSETRON INJ 4 MG/2 ML VIAL IV PUSH (22:15)
[2023-05-04] VITALS (77 sets, daily range): BP systolic 77–131; BP diastolic 47–104; PULSE 56–118; RESP 13–29; O2SAT 94–100
[2023-05-04] MEDS: ONDANSETRON INJ 4 MG/2 ML VIAL IV PUSH (01:09)
[2023-05-04] MEDS: LORazepam (*CRX) 1 MG TABLET PO (01:16)
--- NOTE | 2023-05-04 03:04 | PC.NURSE ---
this rn assumed care of patient. this rn took patient report from fran villa.
--- NOTE | 2023-05-04 03:06 | PC.NURSE ---
care and report given to ASHWIN Cardoza. all questions answered.
--- NOTE | 2023-05-04 03:44 | PC.NURSE ---
This RN obtained consent at [address] Gonzalez verbal ordered 4mg of ketamine IM injection. 4mg of Ketamine IM was given left side buttocks at 0350. Pt vital signs were 82 HR, 100% on room air, 16RR, and 117/81. Pt is anxious and speaking in clear and concise sentences. pt is verbally stating that she is anxious and I don't want have another seizure . EDP Dr. Gonzalez assured pt of procedure and explained medications that are going to be given and the procedure that will be taken place. Pt is becoming less anxious and continuing to speak and clear sentences. Pt vital signs at 0353 are HR of 104, RR 19, 100% on room, and BP of 131/104. Pt vitals at 040 were 97HR, 98% on room air, 17 RR, and 128/90. Pt became drowsy. respiratory on standby. EDP Dr. Gonzalez and DURGA Jackman began procedure at 0403. Atrium attached to suction at 0411. Pt vital signs at 0411 are 87 HR, 94% on room air, 21 RR, BP of 120/87. Upon attachment water seal chamber is continuously bubbling.
[2023-05-04] MEDS: KETAMINE HCL (*CRX) 500 MG/10 ML VIAL 200 MG IV PUSH (03:50)
--- NOTE | 2023-05-04 04:15 | PC.NURSE ---
Water seal chamber in atrium is no longer bubbling. EDP Dr. Gonzalez made aware.
[2023-05-04] MEDS: BUPivacaine HCL 0.25% PF 30 ML VIAL INFILTRATE (04:22)
[2023-05-04] MEDS: MIDAZOLAM HCL (*CRX) 2 MG/2 ML VIAL IV PUSH (04:22)
[2023-05-04] MEDS: ONDANSETRON INJ 4 MG/2 ML VIAL (05:04)
--- NOTE | 2023-05-04 05:05 | PC.NURSE ---
Pt more arousable, but began to vomit. Per [facility] EDP Zych, 4mg IVP Zofran given.
[2023-05-04] MEDS: PROCHLORPERAZINE EDISYLATE 10 MG/2 ML VIAL IV PUSH (06:06)
--- NOTE | 2023-05-04 06:10 | PC.NURSE ---
pt noted to be thrashing, unable to remain calm in room. pt unable to be direction. multiple people in room trying to contain the pt and keep chest tube in place. pt placed in soft restraints for her safety and placement of tube. provider made aware. pt also made aware of what behaviors need to exhibit to have restraints removed
--- NOTE | 2023-05-04 06:31 | PC.NURSE ---
this rn received vorb from edp Dr. rand to start normal saline at 100mls/hour.
[2023-05-04] MEDS: SODIUM CHLORIDE 0.9% IV 1,000 ML 100 ML IV CONT (06:38)
--- NOTE | 2023-05-04 08:39 | PC.NURSE ---
Chest tube removed by EDP
--- NOTE | 2023-05-04 09:24 | PC.NURSE ---
IV fluid rate increased to 999 mL/hr per [facility] from EDP
[2023-05-04] MEDS: levETIRAcetam 500MG/NACL 100ML 500 MG/100 ML BAG 400 MG IVPB (09:59)
== END 2023-05-04 10:00 | disposition short-term general hospital (02) ==
PROVIDERS: Emergency Provider Emergency Medicine; Visit Provider Internal Medicine
DX: J93.83 Other pneumothorax (principal); F41.0 Panic disorder [episodic paroxysmal anxiety]; G40.909 Epilepsy, unspecified, not intractable, without status epilepticus; F17.210 Nicotine dependence, cigarettes, uncomplicated; R94.31 Abnormal electrocardiogram [ECG] [EKG]
CPT/HCPCS: 32551; 36415; 71045; 71046; 80053; 83690; 85025; 85610; 85730; 87426; 87804; 93005; 96374; 96375; 96376; 99285; A9270; J0780; J1170; J1885; J1953; J2250; J2405; J7030

== ENCOUNTER 2023-08-22 19:29 | Emergency (ER) | payer OTHER, SELFPAY ==
[2023-08-22 19:35] VITALS: BP 131/106; PULSE 91; RESP 20; O2SAT 100
[2023-08-22 19:36] VITALS: BP 131/106; PULSE 99; RESP 20; TEMP 36.4; O2SAT 98
--- NOTE | 2023-08-22 19:40 | PC.NURSE ---
Pt hyperventilating, sweating, dry heaving. states she smokes marijuana everyday, has never had reaction like this. hx of anxiety and epilepsy, is compliant with medication. pt shaking, moving all limbs uncontrollably all over the bed, pt crying, inconsolable, taking clothes off, c/o being hot and cold. pt instructed on breathing techniques by staff and family at bedside attempting to comfort patient. provider made aware for further orders.
--- NOTE | 2023-08-22 19:42 | ECG_ITS ---
SEE SCANNED COPY FOR CONFIRMED REPORT MTDD
[2023-08-22] MEDS: LORazepam INJ (*CRX) 2 MG/ML VIAL 1 MG IV PUSH (19:58)
[2023-08-22 20:01] VITALS: BP 110/77; PULSE 90; RESP 20; O2SAT 100
--- NOTE | 2023-08-22 20:03 | ED.ANXIETY ---
HPI - Anxiety General Chief Complaint: Anxiety Stated Complaint: Panic attack Time Seen by Provider: 08/22/23 19:52 History of Present Illness HPI narrative: 33-year-old female with a history of epilepsy on Keppra and oxcarbazepine, anxiety and panic attacks presents to emergency department for a panic attack. Patient states around 630-7 p.m. she was at a meditation sound bath when she began to feel anxious and nauseous. She went to the parking lot began developing a panic attack. States she has had a few episodes of emesis and is reporting some pain or epigastrium and numbness in her extremities. Patient reports ?I want this to stop?. States she has had panic attacks in the past and this is how they normally present. She presents with her boyfriend and friend at bedside. States she has been taking her medications as directed and has not missed any doses. She reports using marijuana daily, denies alcohol or other drug use. Denies SI or HI. Related Data Home Medications Medication Instructions Recorded Confirmed hydroxyzine HCl 25 mg tablet See Rx Instructions .Route .COMPLEX 05/03/23 05/03/23 levonorgestrel-ethinyl estradiol 1 tablet PO DAILY 05/03/23 05/03/23 90 mcg-20 mcg (28) tablet (Laura (28)) Allergies Allergy/AdvReac Type Severity Reaction Status Date / Time Penicillins Allergy Unknown UNKNOWN Verified 05/03/23 20:30 REACTION tari Allergy THROAT Verified 05/03/23 20:30 SWELLING, FACIAL SWELLING Review of Systems Review of Systems: CONSTITUTIONAL: Denies fever, chills, or sweats. EYES: Denies visual changes, redness, or discharge. ENT: Denies rhinorrhea, congestion, sore throat, or otalgia. CARDIOVASCULAR: Denies chest pain, palpitations, or edema. RESPIRATORY: Denies cough or dyspnea. GASTROINTESTINAL: Denies abdominal pain, nausea, vomiting, or diarrhea. GENITOURINARY: Denies dysuria or hematuria. SKIN: Denies rash or itching. MUSCULOSKELETAL: Denies back pain, joint pain, or myalgia. NEUROLOGIC: Denies headache, numbness, or weakness. PSYCHIATRIC: See HPI ON LICENSE OF [facility] Past Medical History Medical History IBS (irritable bowel syndrome) Seizure epilepsy, last one one month ago (focal seizure) takes daily meds Surgical History Surgical History No pertinent past surgical history Family History Family History Mother Family history non-contributory Social History Social History Social History: current smoker Smoking packs per day: 0.5 Smoking cigarettes per day: 10.0 Smoking status: Current every day smoker Alcohol intake: never Substance use: current Substance use type: marijuana Other substance usage details: daily Lack of Transportation: No Lack of Food: Never True Current Housing: I Have Housing Concerned About Future Housing: No Difficulty Paying Gas/Electric Bills: No Difficulty Paying for Meds: No Currently Unemployed: No Education: High School Diploma/GED Difficulty w/ Childcare or Family Care: No Living arrangements: with family Additional occupation/education comments: lives with boyfriend Gender identity (if verbalized by the patient): Female Sexual Orientation (if Verbalized by the Patient): Straight or Heterosexual Spiritual care concerns: No Exam Narrative: GENERAL: Very anxious appearing, writhing around in exam bed, tearful, hyperventilating, retching HEAD: Normocephalic, atraumatic. ENT: Nares clear, no rhinorrhea or epistaxis. Mucous membranes moist. NECK: Supple. CHEST: Clear to auscultation. No respiratory distress. HEART: Regular rate and rhythm. No murmur heard. Normal peripheral pulses. ABDOMEN: Soft, nontender, nondistended, normal active bowel sounds. No rebound, gu
[2023-08-22] MEDS: FAMOTIDINE 20 MG/2 ML VIAL IV PUSH (20:10)
[2023-08-22] MEDS: HALOPERIDOL LACTATE 5 MG/ML VIAL IM ×2 (20:10→21:28)
[2023-08-22 20:13] LABS: Basophils Percent Auto 0.3 % (0.2-1.2); Eosinophils Absolute Auto 0.1 K/mm3 (0-0.3); Eosinophils Percent Auto 1.2 % (0-4.4); Hematocrit 43.6 % (37.0-47.0); Immature Granulocyte Absolute 0.01 K/mm3 (0.00-0.031); Immature Granulocyte Percent A 0.1 % (0-0.5); Lymphocytes Absolute Auto 3.24 K/mm3 (0.9-3.2); Lymphocytes Percent Auto 48.5 % (18.3-44.2); Mean Corpuscular HGB Conc 34.4 g/dl (32-36); Mean Corpuscular Hemoglobin 33.9 pg (26-34); Mean Corpuscular Volume 98.6 fl (80-100); Mean Platelet Volume 11.4 fl (7.4-10.4); Monocytes Absolute Auto 0.7 K/mm3 (0.1-0.6); Monocytes Percent Auto 10.6 % (2.6-8.5); Neutrophils Absolute Auto 2.6 K/mm3 (1.3-6.7); Neutrophils Percent Auto 39.3 % (45.5-73.1); Platelet Count Result 215 k/mm3 (150-375); Red Blood Count 4.42 M/mm3 (4.2-5.4); Red Cell Distribution Width 11.9 % (11.5-14.5); White Blood Count 6.7 K/mm3 (4.5-10.0)
[2023-08-22 20:18] VITALS: BP 108/63; PULSE 98; RESP 20; O2SAT 100
[2023-08-22 20:23] LABS: Alanine Aminotransferase 16 U/L (6-35); Albumin Level 4.8 g/dL (3.5-5.1); Alkaline Phosphatase 70 U/L (38-126); Anion Gap 13 mmol/L (4-12); Aspartate Amino Transferase 23 U/L (14-36); Bilirubin,Total 0.4 mg/dL (0.2-1.3); Blood Urea Nitrogen 6 mg/dL (7-17); Carbon Dioxide 20 mmol/L (22-30); Chloride 107 mmol/L (98-107); Estimated CRCL calculation 95 ml/min; Estimated Glomerular Filt Rate > 60; Glucose 86 mg/dL (65-110); Lipase 80 U/L (23-300); Magnesium 2.2 mg/dL (1.6-2.3); Potassium 3.4 mmol/L (3.4-5.0); Sodium 140 mmol/L (137-145)
[2023-08-22 20:52] LABS: Appearance Urine Cloudy (Clear); Bacteria Urine None Seen /hpf; Bilirubin Urine Negative (Negative); Blood Urine Negative (Negative); Color Urine Yellow (Yellow); Glucose Urine UA Negative (Negative); Ketones Urine Trace mg/dL (Negative); Leukocyte Esterase Ur 1+ LEU/UL (Negative); Nitrate Urine Negative (Negative); Non Pathogenic Casts 0-2; Protein Urine Negative (Negative); RBC Urine 0-2 /hpf (0-2); Squamous Epithelial Cell Urine Few /hpf (Few)
--- NOTE | 2023-08-22 21:00 | PC.NURSE ---
Pt repositioned, updated. Pt able to sit still, dry heaving has decreased. pt still c/o nausea and anxiety but able to be directed and calm.
[2023-08-22 21:06] LABS: Add Urine Microscopic? YES
[2023-08-22 21:34] VITALS: BP 114/75; PULSE 86; RESP 18; O2SAT 100
[2023-08-22 22:32] VITALS: BP 119/87; PULSE 83; RESP 18; O2SAT 100
== END 2023-08-22 22:33 | disposition home or self-care (01) ==
PROVIDERS: Emergency Provider Physician Assistant
DX: F41.0 Panic disorder [episodic paroxysmal anxiety] (principal); R11.2 Nausea with vomiting, unspecified; F12.90 Cannabis use, unspecified, uncomplicated; G40.909 Epilepsy, unspecified, not intractable, without status epilepticus
CPT/HCPCS: 36415; 80053; 81001; 81025; 83690; 83735; 85025; 87086; 87088; 93005; 96372; 96374; 96375; 99284; J1630; J2060

== ENCOUNTER 2023-09-16 12:19 | Emergency (ER) | payer OTHER, SELFPAY ==
--- NOTE | ~2023-09-16 | XR_ITS ---
EXAMINATION: XR chest 2V 09/16/2023 13:20 INDICATION: Cough. History of right pneumothorax. PROCEDURE: 2 view chest COMPARISON: 05/04/2023 FINDINGS: The lungs are clear. There is surgical staple line at the right apex. The cardiomediastinal silhouette is within normal limits. There are no pleural effusions. There is no pneumothorax suspe cted. IMPRESSION: 1: NO ACUTE CARDIOPULMONARY DISEASE. Reviewed, dictated and finalized at location B.
[2023-09-16 12:27] VITALS: BP 108/66; PULSE 96; RESP 20; TEMP 36.7; O2SAT 98
--- NOTE | 2023-09-16 13:08 | ED.URI ---
HPI - URI/Sore Throat General Chief Complaint: Upper Respiratory Infection Stated Complaint: Cough Time Seen by Provider: 09/16/23 13:08 Source: patient Mode of arrival: ambulatory Limitations: no limitations History of Present Illness HPI Narrative: 33-year-old female presented for complaint of cough, right lower back discomfort, fever up to 101, malaise . Onset 4 days. Denies shortness of breath, wheezing, nausea, vomiting or lethargy. Took a Tylenol for symptoms. Reports a history of pneumonia. Related Data Home Medications Medication Instructions Recorded Confirmed hydroxyzine HCl 25 mg tablet 25 mg PO TID PRN Anxiety 05/03/23 09/16/23 levonorgestrel-ethinyl estradiol 1 tablet PO DAILY 05/03/23 09/16/23 90 mcg-20 mcg (28) tablet (Laura (28)) clonazepam 0.5 mg tablet 0.5 mg PO DAILY 09/16/23 09/16/23 levetiracetam 750 mg tablet 1,500 mg PO BID 09/16/23 09/16/23 sertraline 100 mg tablet 150 mg PO DAILY 09/16/23 09/16/23 Allergies Allergy/AdvReac Type Severity Reaction Status Date / Time tari Allergy Severe THROAT Verified 09/16/23 12:41 SWELLING, FACIAL SWELLING Penicillins Allergy Unknown UNKNOWN Verified 09/16/23 12:41 REACTION Review of Systems Review of Systems: CONSTITUTIONAL: reports body aches, fever, chills EYES: Denies visual changes, redness, or discharge. ENT: reports rhinorrhea, congestion, sore throat, otalgia. CARDIOVASCULAR: Denies chest pain, palpitations, or edema. RESPIRATORY: Reports cough, denies sob, wheezing. GASTROINTESTINAL: Reports diarrhea Denies abdominal pain, nausea, vomiting GENITOURINARY: Denies dysuria or hematuria. SKIN: Denies rash, itching, or wounds. MUSCULOSKELETAL: Denies back pain, joint pain, or myalgia. NEUROLOGIC: Denies headache, numbness, tingling, or weakness. All systems reviewed & are unremarkable except as noted in HPI and below PMFSH Past Medical History Medical History IBS (irritable bowel syndrome) Seizure epilepsy, last one one month ago (focal seizure) takes daily meds Surgical History Surgical History No pertinent past surgical history Family History Family History Mother Family history non-contributory Social History Social History Social History: current smoker Smoking packs per day: 0.5 Smoking cigarettes per day: 10.0 Smoking status: Current every day smoker Alcohol intake: never Substance use: current Substance use type: marijuana Other substance usage details: daily Lack of Transportation: No Lack of Food: Never True Current Housing: I Have Housing Concerned About Future Housing: No Difficulty Paying Gas/Electric Bills: No Difficulty Paying for Meds: No Currently Unemployed: No Education: High School Diploma/GED Difficulty w/ Childcare or Family Care: No Living arrangements: with family Additional occupation/education comments: lives with boyfriend Gender identity (if verbalized by the patient): Female Sexual Orientation (if Verbalized by the Patient): Straight or Heterosexual Spiritual care concerns: No Comments At time of signature, I have reviewed and agree with nursing past medical, surgical, social and family history unless otherwise noted. Please see nursing chart for further information. There is no relevant family history pertinent to the presenting complaint Exam Narrative: GENERAL: Well-appearing, in no acute distress. EYES: EOMI. No redness or drainage. Conjunctivae normal. ENT: Mucous membranes pink and moist. No rhinorrhea. TMs normal bilaterally. Throat normal. Uvula midline. NECK: Normal AROM. Supple. CHEST: No respiratory distress. Lungs clear to all doll. HEART: Regular rate and rhythm. No murmur michaela
== END 2023-09-16 13:40 | disposition home or self-care (01) ==
PROVIDERS: Emergency Provider Nurse Practitioner Family
DX: B34.9 Viral infection, unspecified (principal); Z20.822 Contact with and (suspected) exposure to COVID-19; F17.210 Nicotine dependence, cigarettes, uncomplicated; G40.909 Epilepsy, unspecified, not intractable, without status epilepticus
CPT/HCPCS: 71046; 87081; 87426; 87804; 87880; 99213; G0463

== ENCOUNTER 2024-02-03 08:23 | Emergency (ER) | payer OTHER, SELFPAY ==
[2024-02-03 08:35] VITALS: BP 99/72; PULSE 78; RESP 16; TEMP 36.6; O2SAT 99
--- NOTE | 2024-02-03 09:01 | ED_ITS ---
HPI - Skin/Abscess/Foreign Bdy General Chief complaint: Skin/Abscess/Foreign Body Stated complaint: Toe Infection Time Seen by Provider: 02/03/24 08:48 Source: patient, RN notes reviewed and old records reviewed Mode of arrival: ambulatory Limitations: no limitations History of Present Illness HPI narrative: 33 year old female presents to [facility] care with complaints of noting itching and possible nail bed fungus to right 5th toenail. Patient reports that she had gel nail portuguese on her toes for about a month and removed it a few days ago. Since then she has had itching and hard brittle toenail like fungus on her right 5th toenail. Patient reports that she cut toe nail short. complaint: other (toe nail fungus, toe infection) Onset (ago): day(s) (3-4 days) Location: R foot (5th toenail) Severity: mild Treatments prior to arrival: none Related Data Home Medications Medication Instructions Recorded Confirmed levonorgestrel-ethinyl estradiol 1 tablet PO DAILY 05/03/23 02/03/24 90 mcg-20 mcg (28) tablet (Laura (28)) sertraline 100 mg tablet 150 mg PO DAILY 09/16/23 02/03/24 Allergies Allergy/AdvReac Type Severity Reaction Status Date / Time tari Allergy Severe THROAT Verified 02/03/24 08:55 SWELLING, FACIAL SWELLING Ketamine AdvReac Unknown Anxiety Uncoded 02/03/24 08:55 Review of Systems Review of Systems: CONSTITUTIONAL: Denies fever, chills, or sweats. CARDIOVASCULAR: Denies chest pain, palpitations, or edema. RESPIRATORY: Denies cough or dyspnea. SKIN: Reports itching of right 5th toenail area with nail appearing hard and brittle like fungal infection MUSCULOSKELETAL: Denies joint pain or myalgia. NEUROLOGIC: Denies headache, numbness, or weakness. All systems reviewed & are unremarkable except as noted in HPI and below PMFSH Past Medical History Medical History IBS (irritable bowel syndrome) Seizure epilepsy, last one one month ago (focal seizure) takes daily meds Surgical History Surgical History No pertinent past surgical history Family History Family History Mother Family history non-contributory Social History Social History (Updated 02/06/24 @ 08:03 by Maude Ross NP) Smoking status: Former smoker Alcohol intake: never Substance use: current Substance use type: marijuana Other substance usage details: daily Lack of Transportation: No Lack of Food: Never True Current Housing: I Have Housing Concerned About Future Housing: No Difficulty Paying Gas/Electric Bills: No Difficulty Paying for Meds: No Currently Unemployed: No Education: High School Diploma/GED Difficulty w/ Childcare or Family Care: No Living arrangements: with family Additional occupation/education comments: lives with boyfriend Gender identity (if verbalized by the patient): Female Sexual Orientation (if Verbalized by the Patient): Straight or Heterosexual Spiritual care concerns: No Comments At time of signature, agree with nursing past medical, surgical, social and family history. There is no relevant family history pertinent to the presenting complaint Exam Narrative: GENERAL: Well-appearing, well-nourished, and in no acute distress. HEAD: Normocephalic, atraumatic. EYES: PERRLA, conjunctivae clear, and EOMI. ENT: Mucous membranes moist. Oropharynx without edema, erythema or lesions. NECK: Supple. No lymphadenopathy CHEST: Clear to auscultation. No respiratory distress. HEART: Regular rate and rhythm. SKIN: Warm, dry.? Reports itchy on 5th right toenail nail area with brittle nail like fungus no acute redness, no noted drainage NEURO:? Alert and oriented x3. PSYCH: Normal mood and affect Course Course Emergency Course: Patient is aware of diagnosis, understands and agrees to treatment plan.? Anticipatory guidance given.? Patient agrees to follow-up as directed and is aware of reasons to seek care at the emergency department. Portions of this record may have been created with voice recognition software Level of Care: Express Care Visit Vital Signs Vital signs: Vital Signs Temperature 36.6 C 02/03/24 08:35 Pulse Rate 78 02/03/24 08:35 Respiratory Rate 16 02/03/24 08:35 Blood Pressure 99/72 L 02/03/24 08:35 Pulse Oximetry 99 02/03/24 08:35 Oxygen Delivery Room Air 02/03/24 08:35 Temperature 36.6 C 02/03/24 08:35 Pulse Rate 78 02/03/24 08:35 Respiratory Rate 16 02/03/24 08:35 Blood Pressure 99/72 L 02/03/24 08:35 Pulse Oximetry 99 02/03/24 08:35 Oxygen Delivery Room Air 02/03/24 08:35 Reviewed MDM - Skin/Abscess/Foreign Bdy MDM Narrative Medical decision making narrative: Does not appear at this time to be erythema multiforme, bullous, SJS, TEN; no evidence at this time to suggest RMSF, endocarditis or Lyme disease; patient looks well, nontoxic and is tolerating oral intake; no neurologic signs or symptoms; no headache, photophobia or neck pain; afebrile; appropriate for initial outpatient treatment; discussed the importance of follow-up, patient agrees; question, viral exanthema, contact dermatitis, allergic dermatitis, eczema, urticaria. No soft palate or uvula edema, no tongue, lip edema or other mucosal involvement, no respiratory compromise, no stridor, no wheezing, no wheezing, no history of syncope, no hypotension, no nausea, vomiting, or diarrhea.? Instructed patient to go to nearest ER immediately for any worsening symptoms including but not limited to: fever, spreading rash, pain, sore throat, headache, dizziness, chest pain, trouble breathing, or any symptoms concerning to the patient. Differential Diagnosis Differential diagnosis: Likely dermatophytosis, cellulitis, contact dermatitis and other (toe nail fungus) Medical Records Attestation: I reviewed the patient's medical records. Critical Care Time Critical Care Time Critical Care Time: No Discharge Plan Discharge Clinical Impression: Fungal infection of toenail Patient Disposition: Home, Self-Care Condition: Stable Instructions: Antibiotic Form Additional Instructions: Soak right 5th toe in warm soapy water twice daily apply tea tree oil to skin and ciclopirox to nail watch for any increasing infection--redness, swelling, drainage Tylenol or Ibuprofen for any fever or pain follow up with PCP in 7-10 days for a wound check recheck if develop fever, chills, increasing symptom Go to the ER if your symptoms become worse of if ANY new symptoms develop Ketoconazole daily as prescribed Do not apply nail portuguese to the nail Prescriptions: New ciclopirox 0.77 % gel 1 applic topical BID 28 Days Qty: 45 0RF No Action sertraline 100 mg tablet 150 mg PO DAILY levonorgestrel-ethinyl estrad [Laura (28)] 90-20 mcg (28) tablet 1 tablet PO DAILY oxcarbazepine [Trileptal] 300 mg tablet 450 mg PO BID Qty: 60 5RF levetiracetam 750 mg tablet 1,500 mg PO BID Qty: 60 5RF Follow-up/Referrals: PHYSICIAN,CORSETS SALESPERSON [Primary Care Provider] - Time of Disposition: 09:38 Quality [place] Coma Scale Eyes: Open Verbal: Oriented and Alert Motor: Follows Commands [place] Coma Total Score: 15
== END 2024-02-03 09:50 | disposition home or self-care (01) ==
PROVIDERS: Emergency Provider Registered Nurse
DX: B35.1 Tinea unguium (principal); G40.909 Epilepsy, unspecified, not intractable, without status epilepticus; Z87.891 Personal history of nicotine dependence; F12.90 Cannabis use, unspecified, uncomplicated
CPT/HCPCS: 99213; G0463

== ENCOUNTER 2024-05-02 10:58 | Outpatient (CLI) | payer OTHER, SELFPAY ==
--- NOTE | ~2024-05-02 | MR_ITS ---
MRI of the brain Clinical History: Multiple sclerosis Technique: Axial and sagittal T1-weighted images were acquired. These were followed by axial T2-weigh hilda, diffusion weighted, gradient, and FLAIR images. Following intravenous administration of 10 cc Mu ltiHance gadolinium, T1-weighted fat-sat imaging was performed in the axial and coronal planes. Findings: There is no acute infarct, intracranial hemorrhage or mass lesion. There are a few focal wh ite matter lesions scattered in the periventricular white matter bilaterally. Ventricles and subarachnoid spaces are unremarkable. Orbits are unremarkable. Paranasal sinuses and m astoid air cells are clear. Major intracranial flow voids are intact. Sagittal midline structures are intact. No abnormal postcontrast enhancement identified. IMPRESSION: Several small scattered white matter lesions are present. These could reflect demyelinating plaques o f multiple sclerosis. Alternative considerations could include early onset chronic microvascular isch emic change, sequela of migraine headache, or less likely, vasculitis. No acute infarct, intracranial hemorrhage, or mass lesion seen. Reviewed, dictated and finalized at location M. [facility] MAINTENANCE MECHANIC IMPRESSION: Several small scattered white matter lesions are present. These could reflect d emyelinating plaques of multiple sclerosis. Alternative considerations could in clude early onset chronic microvascular ischemic change, sequela of migraine he adache, or less likely, vasculitis. No acute infarct, intracranial hemorrhage, or mass lesion seen.
--- OUTSIDE RECORDS SUMMARY | 2024-05-02 12:06 | XMS_ITS | Clinical Summary ---
Author Organization [facility] Address [address] [place] [address] Care Team Providers Care Chief Privacy Officer Name Role Phone Person, Evy CLEARY Primary Care Provid er Source Comments [facility],non-owned Affiliates and Associated Physician Practices is amultiple site organization consisting of ambulatory clinics and hospital sitesin [place], [place], [place] and [place]. This disclosure is being madepursuant to the Care Everywhere program and may not contain all information available regarding this patient. Last updated 17.[facility] Allergies Active Allergy Reactions Criticality Noted Date Comments Ketamine Other 05/04/2023 Severe Anxiety [place] Flavor Swelling,Urticaria Medium 11/26/2016 [facility] Papaya Enzyme Swelling 05/05/2023 Penicillins Swelling 01/28/2017 Medications * Be aware that medications may not be up to date on this document. Alwaysverify current medications with the patient. Medication Sig Dispensed Refills Start Date End Date Status acetaminophen (Tylenol) 500 MG tablet Take 2 (two) tablets by mouth every 6 hours Maximum allowable Acetaminophen amount = 4 Grams (4000 mg) / 24 hours. 05/06/2023 Active levETIRAcetam (Keppra) 750 MG tablet TAKE 2 TABLETS BY MOUTH TWICE DAILY 360 tablet 07/27/2023 Active OXcarbazepine (Trileptal) 300 MG tabletIndications: Nonintractable epilepsy without status epilepticus, unspecified epilepsy type (HCC) TAKE 1 TABLET BY MOUTH TWICE DAILY 90 tablet 3 09/21/2023 Active clonazePAM (KlonoPIN) 0.5 MG tabletIndications: PTSD (post-traumatic stress disorder) Take 1 (one) tablet by mouth once daily 30 tablet 1 02/23/2024 Active hydrOXYzine HCl (Atarax) 25 MG tablet Take 1 (one) tablet by mouth 2 times daily as needed for Itching 60 tablet 1 02/23/2024 Active sertraline (Zoloft) 100 MG tablet Take 2 (two) tablets by mouth once daily 60 tablet 1 02/23/2024 Active Laura 90-20 MCG tabletIndications: Encounter for contraceptive management, unspecified type Take 1 (one) tablet by mouth once daily 90 tablet 3 04/22/2024 Active Laura 90-20 MCG tabletIndications: Encounter for contraceptive management, unspecified type Take 1 (one) tablet by mouth once daily 90 tablet 3 03/20/2023 04/22/19 Discontinu ed(Reorder ) Active Problems Patient Care Coordination No te Formatting of this note migh t be different from the original. NOPP-MFCC 12/2016 Problem Noted Date Diagnosed Date Primary spontaneous pneumothorax 05/04/2023 Status post seizure 06/02/2017 Tobacco smoking affecting in second tr imester 12/31/2016 Supervision of high risk in first trim manish 11/26/2016 Epilepsy 11/26/2016 Seizure 05/31/2014 Resolved Problems Problem Noted Date Diagnosed Date Resolved Date Psychosis 09/30/2012 03/20/2023 07/10/2023 Encounters Date Type Department Care Team Description 04/22/2024 3:30 PM LOGGING ENGINEER Office Visit [facility] - [facility] [address] [place] [address] [phone] Cary Williamson DO Encounter for contraceptive management, unspecified type (Primary Dx) 04/22/2024 Travel 04/14/2024 Travel 04/04/2024 Refill [facility] - Internal [facility] [address] [place] [address] [phone] Evy Cormier APRN-SIMRAN MEDICATION REFILL 03/25/2024 Orders Only [facility] [address] [place] [address] [phone] Mariano Young RN Encounter for contraceptive management, unspecified type 03/08/2024 Travel 02/23/2024 Travel from Last 3 Months Immunizations Name Administration Dates Next Due HEP B VACCINE, ADULT 3 DOSE 09/23/2023, 4,03/20/2023 INFLUENZA VACCINE, QUADR. (F LUZONE; FLULAVAL; FLUARIX; AFLURIA QUADRIVALENT; 6MO+), 0.5 ML (IIV4) 03/17/2019,01/28/2017 MMR 06/05/2017 TDAP (7yrs+) 03/18/2017 Family History Medical History Relation Name Comments Alcohol abuse Father Ankylosing Spondylitis Father Mental Illness - Other Mother Seizures Sister Relation Name Status Comments Father Alive Maternal Grandfather Maternal Grandmother Alive Mother Alive Sister Social History Tobacco Use Types Packs/Day Years Used Date Smoking Tobacco: Light Smoker Cigarettes 0.5 10 Smokeless Tobacco: Never Tobacco Cessation:Ready to Q uit: Not Asked; Counseling Given: Not Answered Alcohol Use Standard Drinks/Week Comments No 0 (1 standard drink = 0.6 oz pur e alcohol) AUDIT-C Answer Date Recorded Q1: How often do you have a drink containing alcohol? Never 02/12/2023 Q2: How many drinks containi ng alcohol do you have on a typical day when you are drinking? Patient does not drink Q3: How often do you have si x or more drinks on one occasion? Never 02/12/2023 PHQ-2 Answer Date Recorded Patient Health Questionnaire-2 Score 0 04/22/2024 Sex and Gender Information Value Date Recorded Sex Assigned at Not on file Gender Identity Not on file Sexual Orientation Not on file Travel History Travel Start Travel End [place] 04/02/2024 04/10/2024 Last Filed Vital Signs Vital Sign Reading Time Taken Comments Blood Pressure 118/80 04/22/2024 3:40 PM LOGGING ENGINEER Pulse 95 04/22/2024 3:40 PM LOGGING ENGINEER Temperature 36.6 ??C (97.8 ??F) 04/22/2024 3:40 PM CS T Respiratory Rate 18 05/22/2023 10:42 AM LOGGING ENGINEER Oxygen Saturation 98% 04/22/2024 3:40 PM LOGGING ENGINEER Inhaled Oxygen Concentration - - Weight 64.9 kg (143 lb) 04/22/2024 3:40 PM LOGGING ENGINEER Height 165.1 cm (5' 5 ) 04/22/2024 3:40 PM LOGGING ENGINEER Body Mass Index 23.8 04/22/2024 3:40 PM LOGGING ENGINEER Plan of Treatment Health Maintenance Due Date Last Done Comments PAP SMEAR 1989 COVID-19 VACCINE (1 - 2023-2 5 season) 2023 INFLUENZA VACCINE (#1) 2023 , 01/28/2017 PNEUMOCOCCAL VACCINE (1 of 2 - PCV) 07/20/2024 Postponed from 02/14/2008 (Patient Directed) DTAP/TDAP/TD VACCINES (2 - T d or Tdap) 03/18/2027 03/18/2017 ZOSTER VACCINE (1 of 2) 2039 HIV SCREENING Completed 03/04/2017 HEPATITIS C SCREENING Completed 03/20/2023 HEPATITIS B VACCINE Completed 09/23/2023, 05/21/2023, 03/20/2023 DEPRESSION SCREENING Discontinued 04/22/2024, 05/11/2023, 03/20/2023 HIB VACCINE Aged Out No longer eligi ble based on patient's age to complete this topic HPV VACCINE Aged Out No longer eligi ble based on patient's age to complete this topic MENINGOCOCCAL (Group B) VACCINE Aged Out No longer eligible b ased on patient's age to complete this topic MENINGOCOCCAL VACCINE Aged Out No geetha gage eligible based on patient's age to complete this topic Procedures Procedure Name Priority Date/Time Associated Diagnosis Comments HEPATITIS C AB SCREEN RFLX NAAT QUANT Routine 03/20/2023 10:57 AM LOGGING ENGINEER Routine adult health maintenance HIV-1 HIV-2 ANTIBODY + HIV P24 AG PANEL Routine 03/04/2017 12:55 PM LOGGING ENGINEER Supervision of high risk in first trimester (HCC) from Last 3 Months or Most Recently Relevant to Health Maintenance Results * HEPATITIS C AB SCREEN RFLX NAAT QUANT (03/20/2023 10:57 AM LOGGING ENGINEER) Hepatitis C Antibody Non-react jordyn Non-reac tive 03/20/2023 12:41 PM LOGGING ENGINEER [facility] Comment:Hepatitis C Antibody screen indicates no serologic evidence of past or current infection with Hepatitis C Virus. Patients with unexplained liver disease who are immunocompromised or suspected of having acute Hepatitis C infection may benefit from Nucleic Acid Test (JOELLE) for Hepatitis C Viral RNA to confirm Hepatitis C status. Blood BLOOD SPECIMEN / Unknown Lab Venipuncture / Unknown 03/20/2023 10:57 AM LOGGING ENGINEER 03/20/2023 11:18 AM LOGGING ENGINEER Evy Espinoza Person GRAPHIC COORDINATOR-SIEBEL DEVELOPER LAB - CHEMIS TRY ORDERABLES [facility] [address] [place] [address], [facility] [phone] * HIV-1 HIV-2 ANTIBODY + HIV P24 AG PANEL (03/04/2017 12:55 PM LOGGING ENGINEER) [facility] HIV1/2 Ab + P24 Ag Non Reactive Non Reactive 03/04/2017 4:59 PM LOGGING ENGINEER [facility] Blood BLOOD SPECIMEN / Unknown Venipuncture / Unknown 03/04/2017 12:55 PM LOGGING ENGINEER 03/04/2017 1:51 PM LOGGING ENGINEER Narrative [facility] - 03/04/2017 4:59 PM LOGGING ENGINEER No Laboratory evidence of HIV infection. Beto Hernandez MD LAB - CHEMISTRY SARKIS SIMPSON [facility] [address] [place] [address] from Last 3 Months or Most Recently Relevant to Health Maintenance Advance Directives * Full Code (Latest Code Status on File) Date Activated Date Inactivated Comments 05/04/2023 2:25 PM 05/06/2023 6:51 PM * Full Code Date Activated Date Inactivated Comments 06/02/2017 5:36 PM 06/05/2017 2:44 PM * Full Code Date Activated Date Inactivated Comments 06/02/2017 4:07 PM 06/02/2017 5:36 PM * Full Code Date Activated Date Inactivated Comments 11/26/2016 8:41 PM 11/28/2016 6:05 PM Care Teams Chief Privacy Officer Relationship Specialty Start Date End Date PersonEvy APRN-SIMRAN PCP - General Nurse Practitioner Family 03/20/23
--- OUTSIDE RECORDS SUMMARY | 2024-05-02 12:06 | XMS_ITS | Clinical Summary ---
Author Organization [facility] Address [address] [place] [address] Care Team Providers Care Banner Painter Name Role Phone Unavailable Primary Care Provider Unavailabl e Social History Tobacco Use Types Packs/Day Years Used Date Smoking Tobacco: Never Assessed Comments Unknown Sex and Gender Information Value Date Recorded Sex Assigned at Not on file Legal Sex Female 9:43 AM BOTTOM PAINTER Gender Identity Not on file Sexual Orientation Not on file Plan of Treatment Health Maintenance Due Date Last Done Comments Hepatitis C Virus (HCV) Screening 1989 TdaP Immunization 1989 Hepatitis B Immunization (1 of 3 - 19+ 3-dose series) 02/14/2008 Pap Smear 2010 Cervical Cancer Screening (CCS) 2019 HPV/Cotest 2019 Influenza Immunization (#1) 2023 03/17/2019 SARS-COV-2 Immunization ( season) 2023 Respiratory Syncytial Virus (RSV) Immunization (Adult) (1 - 1-dose 75+ series) 02/14/2064 Meningococcal Immunization (ACWY) Aged Out No longer eligible based on patient's age to complete this topic Pneumococcal Immunization Combined Aged Out No longer eligible based on patient's age to complete this topic Rotavirus Immunization Aged Out No lo nger eligible based on patient's age to complete this topic
--- OUTSIDE RECORDS SUMMARY | 2024-05-02 12:06 | XMS_ITS | Clinical Summary ---
Author Organization [facility] Address [address] [place] [address] Care Team Providers Care Embosser Apprentice Name Role Phone No, Physician Primary Care Provider Allergies Active Allergy Reactions Criticality Noted Date Comments Ketamine Agitation Medium 01/17/2024 Julian Hives,Swelling Medium 01/26/2023 Papaya Hives,Swelling Medium 01/26/2023 Penicillins Medications Laura, 28, 90-20 mcg (28) per tablet 01/08/2023 Active OXcarbazepine (TRILEPTAL) 300 mg tablet 01/26/2023 Active levETIRAcetam (KEPPRA) 750 mg tablet Take 2 tablets (1,500 mg total) by mouth 2 (two) times a day 120 tablet 01/26/2023 Active clonazePAM (KlonoPIN) 0.5 mg tablet Take 1 tablet (0.5 mg total) by mouth daily 12/15/2023 Active sertraline (ZOLOFT) 100 mg tablet Take 1.5 tablets (150 mg total) by mouth daily 01/12/2024 Active Active Problems Problem Noted Date Diagnosed Date Epilepsy 06/26/2014 Overview (07/17/2017): Description: Patient reports frequent laron vu (10 x per week) with occassional nocturnal events of urination, and at least one episode of generalized shaking and tongue biting at night. She has had two daytime episodes as well of alteration of consciousness and questionable focal shaking that could represent complex partial seizures. 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 Discussed seizure precautions including no driving for 6 months. I informed her of the increased risk of associated with uncontrolled epilepsy and encouraged her to call the office if there is any difficulty obtain medication. Seizure 05/31/2014 Psychosis 09/30/2012 Encounters Date Type Department Care Team Description 02/09/2024 12:28 PM ADAPTIVE PHYSICAL EDUCATION SPECIALIST - 02/09/2024 11:59 PM ADAPTIVE PHYSICAL EDUCATION SPECIALIST Hospital Encounter [facility] Emergency, Room R Discharge Disposition: Discharge to home or self care 02/08/2024 3:32 AM ADAPTIVE PHYSICAL EDUCATION SPECIALIST - 02/08/2024 6:12 AM ADAPTIVE PHYSICAL EDUCATION SPECIALIST Emergency [facility] Emergency Department [address] [place] [address] Brian Velásquez MD Panic attack (Primary Dx) Discharge Disposition: Discharge to home or self care from Last 3 Months Social History Tobacco Use Types Packs/Day Years Used Date Smoking Tobacco: Never Assessed Personal Safety Answer Date Recorded Have you ever been in or are you currently in a harmful physical or emotional relationship or is someone making you feel afraid or unsafe? Denies 01/17/2024 Comments No Sex and Gender Information Value Date Recorded Sex Assigned at Not on file Legal Sex Female 6:37 AM ADAPTIVE PHYSICAL EDUCATION SPECIALIST Gender Identity Not on file Sexual Orientation Not on file Obstetrics History Last Filed Vital Signs Vital Sign Reading Time Taken Comments Blood Pressure 113/71 02/08/2024 5:30 AM ADAPTIVE PHYSICAL EDUCATION SPECIALIST Pulse 87 02/08/2024 5:30 AM ADAPTIVE PHYSICAL EDUCATION SPECIALIST Temperature 36.6 ??C (97.8 ??F) 02/08/2024 3:24 AM CS T Respiratory Rate 23 02/08/2024 5:30 AM ADAPTIVE PHYSICAL EDUCATION SPECIALIST Oxygen Saturation 96% 02/08/2024 5:30 AM ADAPTIVE PHYSICAL EDUCATION SPECIALIST Inhaled Oxygen Concentration - - Weight 54.4 kg (120 lb) 01/17/2024 5:18 PM CDT Height 165.1 cm (5' 5 ) 01/26/2023 4:33 PM CDT Body Mass Index 19.97 01/26/2023 4:33 PM CDT Plan of Treatment Health Maintenance Due Date Last Done Comments Cervical Cancer Screening 1989 Depression Screening 1989 Varicella Vaccines (1 of 2 - 13+ 2-dose series) 2002 Regular Well Visit/Exam 18-64 2007 Influenza Vaccine (#1) 2023 9, 01/28/2017 DTaP/Tdap/Td Vaccine (2 - Td or Tdap) 03/18/2027 03/18/2017 Hepatitis C Screening Completed 05/31/2014 HPV Vaccines Aged Out No longer eligi ble based on patient's age to complete this topic Pneumococcal vaccine <65 Aged Out No longer eligible based on patient's age to complete this topic Procedures Procedure Name Priority Date/Time Associated Diagnosis Comments ECG 12-LEAD Routine 02/08/2024 4:40 AM ADAPTIVE PHYSICAL EDUCATION SPECIALIST POCT GLUCOSE DEVICE Routine 02/08/2024 4 :24 AM ADAPTIVE PHYSICAL EDUCATION SPECIALIST SERUM HEPATITIS C AB Routine 05/31/2014 9:48 AM ADAPTIVE PHYSICAL EDUCATION SPECIALIST from Last 3 Months or Most Recently Relevant to Health Maintenance Results * ECG 12 lead (02/08/2024 4:40 AM ADAPTIVE PHYSICAL EDUCATION SPECIALIST) 02/08/2024 4:40 AM ADAPTIVE PHYSICAL EDUCATION SPECIALIST Narrative [facility] - 02/09/2024 7:37 AM ADAPTIVE PHYSICAL EDUCATION SPECIALIST Vent Rate: 78 bpm RR Interval: 769 msec MO Interval: 144 msec QRS Duration: 73 msec QT Interval: 384 msec QTC Interval: 417 msec P-R-T Valentine: 78 - 39 - -86 degrees IMPRESSION: SINUS RHYTHM MODERATE T-WAVE ABNORMALITY, CONSIDER LATERAL ISCHEMIA ??[-0.1+ mV T-WAVE IN I/aVL/V5/V6] MODERATE T-WAVE ABNORMALITY, CONSIDER INFERIOR ISCHEMIA ??[-0.1+ mV T-WAVE IN II/aVF] ABNORMAL ECG NO CHANGE FROM PREVIOUS TRACING NOTED Electronically Signed By: Aroldo Bland MD us Giana Guy MD ECG ORDERABLES Final Result [facility] * POCT glucose (02/08/2024 4:24 AM ADAPTIVE PHYSICAL EDUCATION SPECIALIST) Glucose, POC 168 70 - 199 mg/dL Blood 02/08/2024 4:24 AM ADAPTIVE PHYSICAL EDUCATION SPECIALIST 02/08/2024 4:24 AM ADAPTIVE PHYSICAL EDUCATION SPECIALIST us Brian Velásquez MD LAB POCT ORDERABLES - DEVICE Final Result [facility] ([facility]) [address] [facility] Department [place] [address] * Serum Hepatitis C ab (05/31/2014 9:48 AM ADAPTIVE PHYSICAL EDUCATION SPECIALIST) HCV ab Negative NEG HISTORICAL RESULTS Serum 05/31/2014 9:48 AM ADAPTIVE PHYSICAL EDUCATION SPECIALIST Narrative HISTORICAL RESULTS - 06/01/2014 3:57 AM ADAPTIVE PHYSICAL EDUCATION SPECIALIST Interpretive Data If confirmation is required, call Laboratory Customer Service to request sample to be sent to [facility] for Hepatitis C Virus (HCV) RNA Detection and Quantitation by Real-Time Reverse Director Biologics-PCR (RT-PCR). Current interpretive data was last revised on 2011 Adam Dean MD LAB BLOOD ORDERABLES Final Res ult HISTORICAL RESULTS from Last 3 Months or Most Recently Relevant to Health Maintenance Insurance [facility] Care Teams Embosser Apprentice Relationship Specialty Start Date End Date No, Physician PCP - General 01/26/23
--- OUTSIDE RECORDS SUMMARY | 2024-05-02 12:06 | XMS_ITS | Patient Health Summary ---
Author Organization [facility] Address [address] [place] [address] Care Team Providers Care Supervisor Instrument Mechanics Name Role Phone Person, Evy Espinoza APRN-SIMRAN Primary Care Provid er Note from [facility],non-owned Affiliates and Associated Physician Practices is amultiple site organization consisting of ambulatory clinics and hospital sitesin [place], [place], [place] and [place]. This disclosure is being madepursuant to the Care Everywhere program and may not contain all information available regarding this patient. Last updated 17.[facility] Allergies * Ketamine(Other) * [place] Flavor(Swelling,Urticaria) -Medium Criticality * [facility] Papaya Enzyme(Swelling) * Penicillins(Swelling) * Carica Papaya(Urticaria,Swelling) -Medium Criticality,Inactive Medications * Be aware that medications may not be up to date on this document. Alwaysverify current medications with the patient. * acetaminophen (Tylenol) 500 MG tablet(Started 05/06/2023) Take 2 (two) tablets by mouth every 6 hours Maximum allowable Acetaminophen amount = 4 Grams (4000 mg) / 24 hours. * levETIRAcetam (Keppra) 750 MG tablet(Started 07/27/2023) TAKE 2 TABLETS BY MOUTH TWICE DAILY * OXcarbazepine (Trileptal) 300 MG tablet(Started 09/21/2023) TAKE 1 TABLET BY MOUTH TWICE DAILY 3 refills by 09/20/2024 * clonazePAM (KlonoPIN) 0.5 MG tablet(Started 02/23/2024) Take 1 (one) tablet by mouth once daily 1 refill by 08/21/2024 * hydrOXYzine HCl (Atarax) 25 MG tablet(Started 02/23/2024) Take 1 (one) tablet by mouth 2 times daily as needed for Itching 1 refill by 02/22/2025 * sertraline (Zoloft) 100 MG tablet(Started 02/23/2024) Take 2 (two) tablets by mouth once daily 1 refill by 02/22/2025 * Laura 90-20 MCG tablet(Started 04/22/2024) Take 1 (one) tablet by mouth once daily 3 refills by 04/22/2025 Ended Medications* Laura 90-20 MCG tablet(Started 03/20/2023)(Discontinued) Take 1 (one) tablet by mouth once daily 3 refills by 03/19/2024 Active Problems Problem Noted Date Diagnosed Date Primary spontaneous pneumothorax 05/04/2023 Status post seizure 06/02/2017 Tobacco smoking affecting in second tr imester 12/31/2016 Supervision of high risk in first trim manish 11/26/2016 Epilepsy 11/26/2016 Seizure 05/31/2014 Resolved Problems Problem Noted Date Diagnosed Date Resolved Date Psychosis 09/30/2012 03/20/2023 07/10/2023 Immunizations * HEP B VACCINE, ADULT 3 DOSE(Given 09/23/2023, 05/21/2023, 03/20/2023) * INFLUENZA VACCINE, QUADR. (FLUZONE; FLULAVAL; FLUARIX; AFLURIA QUADRIVALENT; 6MO+), 0.5 ML (IIV4)(Given 03/17/2019, 01/28/2017) * MMR(Given 06/05/2017) * TDAP (7yrs+)(Given 03/18/2017) Social History Tobacco Use Types Packs/Day Years [...] you are drinking? Patient does not drink 3 Q3: How often do you have si x or more drinks on one occasion? Never 02/12/2023 PHQ-2 Answer Date Recorded Patient Health Questionnaire-2 Score 0 04/22/2024 Sex and Gender Information Value Date Recorded Sex Assigned at Not on file Gender Identity Not on file Sexual Orientation Not on file Travel History Travel Start Travel End [place] 04/02/2024 04/10/2024 Last Filed Vital Signs Vital Sign Reading Time Taken Comments Blood Pressure 118/80 04/22/2024 3:40 PM MEDICAL LIAISON Pulse 95 04/22/2024 3:40 PM MEDICAL LIAISON Temperature 36.6 ??C (97.8 ??F) 04/22/2024 3:40 PM CS T Respiratory Rate 18 05/22/2023 10:42 AM MEDICAL LIAISON Oxygen Saturation 98% 04/22/2024 3:40 PM MEDICAL LIAISON Inhaled Oxygen Concentration - - Weight 64.9 kg (143 lb) 04/22/2024 3:40 PM MEDICAL LIAISON Height 165.1 cm (5' 5 ) 04/22/2024 3:40 PM MEDICAL LIAISON Body Mass Index 23.8 04/22/2024 3:40 PM MEDICAL LIAISON Procedures * TSH(Performed 09/23/2023) Performed for Fatigue due to exposure, initial encounter * CARDIAC RHYTHM STRIP ORDER(Performed 05/07/2023) * XR CHEST 1VW PORTABLE(Performed 05/06/2023) Performed for Pneumothorax, unspecified type * CARDIAC EKG ORDER(Performed 05/05/2023) * XR CHEST 1VW PORTABLE(Performed 05/05/2023) Performed for Pneumothorax, unspecified type * TROPONIN-I HIGH SENSITIVE REFLEX 1HOUR(Performed 05/04/2023) * TROPONIN-I HIGH SENSITIVE BASELINE + 1HR(Performed 05/04/2023) * XR CHEST 1VW PORTABLE(Performed 05/04/2023) Performed for Pneumothorax, unspecified type * PATHOLOGY TISSUE EXAM (STL)(Performed 05/04/2023) Performed for Diagnosis unknown * ENDOTRACHEAL TUBE NOTE(Performed 05/04/2023) * MD THORACOSCOPY DIAGNOSTIC(Performed 05/04/2023) * EKG 12-LEAD(Performed 05/04/2023) Performed for Pneumothorax, unspecified type * TYPE + SCREEN PANEL(Performed 05/04/2023) * HCG BETA BLOOD QUANTITATIVE(Performed 05/04/2023) * TROPONIN-I HIGH SENSITIVE BASELINE + 1HR(Performed 05/04/2023) * COMPREHENSIVE METABOLIC PANEL(Performed 05/04/2023) * CBC W AUTO DIFFERENTIAL(Performed 05/04/2023) * XR CHEST 1VW PORTABLE(Performed 05/04/2023) Performed for Pneumothorax, unspecified type * LIPID PROFILE(Performed 03/20/2023) Performed for Routine adult health maintenance * COMPREHENSIVE METABOLIC PANEL(Performed 03/20/2023) Performed for Routine adult health maintenance * CBC W AUTO DIFFERENTIAL(Performed 03/20/2023) Performed for Routine adult health maintenance * HEPATITIS C AB SCREEN RFLX NAAT QUANT(Performed 03/20/2023) Performed for Routine adult health maintenance * IMAGING/RADIOLOGY/XRAY RESULTS ORDER(Performed 06/09/2017) * LEVETIRACETAM LEVEL(Performed 06/04/2017) * HGB HCT PANEL(Performed 06/04/2017) * LEVETIRACETAM LEVEL(Performed 06/03/2017) * PATHOLOGY TISSUE EXAM (STL)(Performed 06/03/2017) Performed for Supervision of high risk in first trimester (HCC) * BLOOD GASES CORD ART (ISTAT)(Performed 06/03/2017) * BLOOD GASES CORD CHERIE (ISTAT)(Performed 06/03/2017) * BLOOD GASES CORD ART (ISTAT)(Performed 06/03/2017) * NEURAXIAL BLOCK(Performed 06/03/2017) * LEVETIRACETAM LEVEL(Performed 06/03/2017) * URINE DRUG SCREEN IMMUNOASSAY(Performed 06/02/2017) Performed for Status post seizure * TYPE + SCREEN PANEL(Performed 06/02/2017) Performed for Status post seizure * LEVETIRACETAM LEVEL(Performed 06/02/2017) Performed for Nonintractable epilepsy without status epilepticus, unspecified epilepsy type ([facility]) * COMPREHENSIVE METABOLIC PANEL(Performed 06/02/2017) Performed for Status post seizure * CBC W AUTO DIFFERENTIAL(Performed 06/02/2017) Performed for Status post seizure * GLUCOSE PROTEIN KETONE URINE - POINT OF CAR(Performed 06/01/2017) Performed for Supervision of high risk in first trimester (HCC) * GLUCOSE PROTEIN KETONE URINE - POINT OF CAR(Performed 05/11/2017) Performed for Supervision of high risk in first trimester ([facility]) * LEVETIRACETAM LEVEL(Performed 04/29/2017) Performed for Partial symptomatic epilepsy with complex partial seizures, not intractable, without status epilepticus ([facility]) * CULTURE STREP B(Performed 04/29/2017) Performed for Seizure disorder during in second trimester ([facility]) * LEVETIRACETAM LEVEL(Performed 04/15/2017) Performed for Partial idiopathic epilepsy with seizures of localized onset, not intractable, with status epilepticus ([facility]) * GLUCOSE PROTEIN KETONE URINE - POINT OF CAR(Performed 04/15/2017) Performed for Supervision of high risk in first trimester ([facility]) * LEVETIRACETAM LEVEL(Performed 04/01/2017) Performed for Supervision of high risk in first trimester ([facility]) * INFLUENZA A+B ANTIGEN RAPID(Performed 04/01/2017) Performed for Supervision of high risk in first trimester ([facility]) * GLUCOSE PROTEIN KETONE URINE - POINT OF CAR(Performed 04/01/2017) Performed for Supervision of high risk in first trimester ([facility]) * SONOGRAM - COMPLETE(Performed 03/18/2017) * GLUCOSE PROTEIN KETONE URINE - POINT OF CAR(Performed 03/18/2017) Performed for Seizure disorder during in second trimester ([facility]) * HIV-1 HIV-2 ANTIBODY + HIV P24 AG PANEL(Performed 03/04/2017) Performed for Supervision of high risk in first trimester ([facility]) * RPR(Performed 03/04/2017) Performed for Supervision of high risk in first trimester ([facility]) * GLUCOSE CHALLENGE(Performed 03/04/2017) Performed for Supervision of high risk in first trimester ([facility]) * GLUCOSE PROTEIN KETONE URINE - POINT OF CAR(Performed 03/04/2017) Performed for Supervision of high risk in first trimester ([facility]) * LEVETIRACETAM LEVEL(Performed 02/25/2017) Performed for Nonintractable epilepsy without status epilepticus, unspecified epilepsy type ([facility]) * GLUCOSE PROTEIN KETONE URINE - POINT OF CAR(Performed 02/25/2017) Performed for Supervision of high risk in first trimester ([facility]) * SONOGRAM - COMPLETE(Performed 01/28/2017) * GLUCOSE PROTEIN KETONE URINE - POINT OF CAR(Performed 01/28/2017) Performed for Supervision of high risk in first trimester ([facility]) * LEVETIRACETAM LEVEL(Performed 12/31/2016) Performed for Supervision of high risk in first trimester (HCC) * GLUCOSE PROTEIN KETONE URINE - POINT OF CAR(Performed 12/31/2016) Performed for Supervision of high risk in first trimester ([facility]) * SONOGRAM - COMPLETE(Performed 12/31/2016) * LAB RESULTS ORDER(Performed 12/02/2016) * IMAGING/RADIOLOGY/XRAY RESULTS ORDER(Performed 12/01/2016) * SONOGRAM - COMPLETE(Performed 11/27/2016) * EEG(Performed 11/27/2016) * CHLAMYDIA + GC AMPLIFIED PROBE(Performed 11/26/2016) Performed for Supervision of high risk , antepartum, first trimester ([facility]) * TYPE + SCREEN PANEL(Performed 11/26/2016) Performed for Supervision of high risk , antepartum, first trimester ([facility]) * RPR(Performed 11/26/2016) Performed for Supervision of high risk , antepartum, first trimester ([facility]) * HIV-1 HIV-2 ANTIBODY + HIV P24 AG RAPID PNL(Performed 11/26/2016) Performed for Supervision of high risk , antepartum, first trimester ([facility]) * RUBELLA IMMUNE STATUS(Performed 11/26/2016) Performed for Supervision of high risk , antepartum, first trimester ([facility]) * HEPATITIS B SURFACE ANTIGEN W RFLX CONFIRMATION(Performed 11/26/2016) Performed for Supervision of high risk , antepartum, first trimester ([facility]) * OBSTETRIC PANEL (BEAKER)(Performed 11/26/2016) Performed for Supervision of high risk , antepartum, first trimester ([facility]) * BLOOD TYPE VERIFICATION(Performed 11/19/2016) Results * TSH (09/23/2023 9:30 AM CDT) TSH 0.382 0.350 - 4.940 uIU/mL 09/23/2023 10:25 AM CDT [facility] Blood BLOOD SPECIMEN / Unknown Lab Venipuncture / Unknown 09/23/2023 9:30 AM CDT 09/23/2023 9:42 AM CDT Evy Cormier POLITICAL THEORY PROFESSOR-GEOSPATIAL PROGRAM MANAGEMENT OFFICER LAB - CHEMIS TRY ORDERABLES [facility] [address] [address], [facility] [phone] * CARDIAC RHYTHM STRIP ORDER (05/07/2023 2:47 PM MEDICAL LIAISON) Narrative 05/07/2023 2:47 PM MEDICAL LIAISON Ordered by an unspecified provider. Scanned Document CARDIAC SERVICES ORD ERABLES * XR CHEST 1VW PORTABLE (05/06/2023 5:20 AM MEDICAL LIAISON) Only the most recent of4 resultswithin the time period is included. Anatomical Region Laterality Modality Chest Radiographic Jennifer ging 05/06/2023 9:40 AM MEDICAL LIAISON Impressions 05/06/2023 9:42 AM [facility]ICAL LIAISON IMPRESSION: Trace right apical pneumothorax, decreased from prior. > Interpreting Provider: Savannah Long MD on 05/06/2023 9:42 AM Narrative 05/06/2023 9:42 AM [facility]IAISON PROCEDURE: ??XR CHEST 1VW PORTABLE DATE/TIME OF EXAM: ??05/06/2023 5:59 AM CLINICAL INFORMATION: None relevant/not provided if blank. Indication: J93.9: Pneumothorax, unspecified Additional History: COMPARISON: None. FINDINGS: A right-sided chest tube is seen. There is a suture line at the right lung apex. No focal consolidation. Trace right apical pneumothorax, decreased from prior. No pleural effusion. Heart size is normal. There is a small amount of gas in the right chest wall. Procedure Note Savannah Long MD - 05/06/2023 PROCEDURE: XR CHEST 1VW PORTABLE DATE/TIME OF EXAM: 05/06/2023 5:59 AM CLINICAL INFORMATION: None relevant/not provided if blank. Indication: J93.9: Pneumothorax, unspecified Additional History: COMPARISON: None. FINDINGS: A right-sided chest tube is seen. There is a suture line atthe right lung apex. No focal consolidation. Trace right apical pneumothorax, decreased from prior. No pleural effusion. Heart size is normal. There is a smallamount of gas in the right chest wall. IMPRESSION: Trace right apical pneumothorax, decreased from prior. > Interpreting Provider: Savannah Long MD on 05/06/2023 9:42 AM Cristóbal Zhang MD DIAGNOSTIC IMAGING O RDERABLES * CARDIAC EKG ORDER (05/05/2023 5:52 PM MEDICAL LIAISON) Narrative 05/05/2023 5:52 PM MEDICAL LIAISON Ordered by an unspecified provider. Scanned Document CARDIAC SERVICES ORD ERABLES * TROPONIN-I HIGH SENSITIVE REFLEX 1HOUR (05/04/2023 5:22 PM MEDICAL LIAISON) Troponin I High Sensitive <3 <=14 ng/L 05/04/2023 6:06 PM MEDICAL LIAISON [facility] Delta Troponin I HS 05/04/2023 6:06 PM MEDICAL LIAISON [facility] Comment:Delta value intentio hannah not calculated. Baseline to 1 hour specimen collection interval exceeded. Blood BLOOD SPECIMEN / Unknown Lab Venipuncture / Unknown 05/04/2023 5:22 PM MEDICAL LIAISON 05/04/2023 5:43 PM MEDICAL LIAISON Venus Fournier MD LAB - CHEMISTRY SARKIS SIMPSON Performing Organization Address City/[facility]/ZIP Co de Phone Number [facility] [address] [place], [place] [id number] * TROPONIN-I HIGH SENSITIVE BASELINE + 1HR (05/04/2023 4:36 PM MEDICAL LIAISON) Only the most recent of2 resultswithin the time period is included. Pathologist [facility] Troponin I High Sensitive <3 <=14 ng/L 05/04/2023 5:16 PM MEDICAL LIAISON [facility] Blood BLOOD SPECIMEN / Unknown Lab Venipuncture / Unknown 05/04/2023 4:36 PM MEDICAL LIAISON 05/04/2023 4:39 PM MEDICAL LIAISON Venus Fournier MD LAB - CHEMISTRY SARKIS SIMPSON Performing Organization Address City/[facility]/ZIP Co de Phone Number [facility] [address] [place] [address] * PATHOLOGY TISSUE EXAM (STL) (05/04/2023 1:32 PM MEDICAL LIAISON) Only the most recent of2 resultswithin the time period is included. Pathologist [facility] Case Report Surgical Pathology Report ? Case: [id number] ? Authorizing Provider: ??Cristóbal Zhang MD ?Collected: ? 05/04/2023 01:32 PM ? Ordering Location: ? [facility] ?? Received: ?05/04/2023 02:37 PM ? Emergency Department ? Pathologist: ? Leisa Marion MD ? Specimens: ?? A) - Lung Biopsy Wedge, RIGHT UPPER LOBE WEDGE RESECTION ? B) - Pleura ? 05/06/2023 10:[address] 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 Operative procedure: wedge resection. 05/06/2023 10:[address] [facility] Gross Description The specimen is identified with the patient's name and date of . Received fresh, specimen A, right upper lobe wedge is a 10 x 2.5 x 2.2 cm lung wedge. The pleura is predominantly purple-jordan with scattered areas of jordan discoloration. Sectioning shows jordan to brown-jordan, spongy cut surfaces with no grossly distinct lesions. Database Admin sections submitted in cassette A1-A4 (A1-A2 with areas of pleural discoloration). Received fresh, specimen B, pleura is an aggregate of white to yellow-jordan soft tissues, 6 x 3 x 0.2 cm. Entirely submitted in cassette B1-B3. LJ 05/06/2023 10:[address] [facility] Microscopic Description Microscopic examination substantiates the above diagnosis. 05/06/2023 10:[address] [facility] Pathologist Location at [facility] 05/06/2023 10:[address] [facility] Disclaimer All histochemical and/or immunohistochemical results are interpreted with controls that demonstrate appropriate staining reactions before reporting results. Note on use of immunocytochemistry reagents: This test was developed and its performance characteristic determined by [facility], Department of Laboratory Medicine. It has not been cleared or approved by the U.S. Food and Drug Administration (FDA). The FDA has determined that such clearance or approval is not necessary. The test is used for clinical purpose. It should not be regarded as investigational or for research. This laboratory is certified to perform high complexity testing. The performance characteristics of the IHC/ANDRES assays have been validated on formalin-fixed paraffin embedded tissues only. The assays have not been validated on decalcified tissues. Results should be interpreted with caution. 05/06/2023 10:[address] [facility] Embedded Images 05/06/2023 10:[address] [facility] Pathology/Cytology WEDGE BIOPSY OF LUNG / Unknown 05/04/2023 1:32 PM MEDICAL LIAISON 05/04/2023 2:37 PM MEDICAL LIAISON Miscellaneous samples (specimen) ENTIRE PLEURA / Unknown 05/04/2023 1:37 PM MEDICAL LIAISON 05/04/2023 2:37 PM MEDICAL LIAISON Cristóbal Zhang MD LAB - PATHOLOGY/CYTO LOGY ORDERABLES [facility] [address] [place] [address] * ETT LINE PERFORMABLE (05/04/2023 1:17 PM MEDICAL LIAISON) Narrative Heber Cunningham APRN-CRNA - 05/04/2023 1:17 PM MEDICAL LIAISON Heber Cunningham APRN-CRNA ? 05/04/2023 ??1:18 PM Endotracheal Tube Placement: ? Patient Location: OR. Procedure: intubation (52324). Procedure Section: ?? Sedation: under general anesthesia. Indications for Airway Management: ??anesthesia Procedure pretreatments used? ??No Induction: standard IV Patient Position: ??sniffing Mask Ventilation: easy. Blade Type: Alysha Blade Size: 3 Laryngoscopy View: grade 1 (full cords) Tube: double lumen Placement: oral Tube type: cuff - inflated Tube Size (FR): 37 Cuff volume (mL): ??6 Cuff Inflated With: air Number of Attempts: 1. Placement Verified By: direct visualization, CO2 detector, bilateral breath sounds, chest auscultation, bronchoscope and CO2 monitor Tube secured with: ??adhesive tape. Dentition unchanged? ??Yes Difficult Airway? ??No. Staff Section ? Anesthesia Provider: Heber Cunningham APRN-CRNA, Performed the procedure Leisa Boss MD GENERAL ANESTHESIA O RDERABLES * EKG 12-LEAD (05/04/2023 11:33 AM MEDICAL LIAISON) Ventricular Rate 84 BPM [facility] Atrial Rate 84 BPM [facility] P-R Interval 112 ms [facility] QRS Duration ms 74 ms [facility] Q-T Interval ms 390 ms [facility] QTC Calculation (Bezet) 460 ms [facility] Calculated P Nickerson 81 degrees [facility] Calculated R Nickerson 73 degrees [facility] Calculated T Nickerson -78 degrees [facility] Interpretation EKG NORMAL SINUS RHYTHM NONSPECIFIC T WAVE ABNORMALITY PROLONGED QT ABNORMAL ECG NO PREVIOUS ECGS AVAILABLE Confirmed by MD Fernandez, Solo ([id number]) on 05/04/2023 2:09:49 PM [facility] 05/04/2023 11:3 3 AM MEDICAL LIAISON 05/04/2023 2:09 PM MEDICAL LIAISON Venus Fournier MD ECG ORDERABLES Performing Organization Address City/[facility]/ZIP Co de Phone Number [facility] * TYPE + SCREEN PANEL (05/04/2023 11:10 AM MEDICAL LIAISON) Only the most recent of3 resultswithin the time period is included. Pathologist [facility] ABO Rh O POS 05/04/2023 11:[address] [facility] Comment:History checked. Antibody Screen NEG 11:[address] [facility] Blood Bank BLOOD SPECIMEN / Unknown Venipuncture / Unknown 05/04/2023 11:10 AM MEDICAL LIAISON 05/04/2023 11:11 AM MEDICAL LIAISON Venus Fournier MD LAB - BLOOD BANK ORD ERABLES Performing Organization Address City/[facility]/ZIP Co de Phone Number [facility] [address] [phone] * (ABNORMAL) CBC W AUTO DIFFERENTIAL (05/04/2023 11:10 AM MEDICAL LIAISON) Only the most recent of3 resultswithin the time period is included. WBC 9.4 4.0 - 10.7 x10E9/L 05/04/2023 11:[address] [facility] RBC Count 3.67(L) 3.90 - 5.20 x10E12/L 05/04/2023 11:[address] [facility] Hemoglobin 12.4 11.9 - 15.8 g/dL 05/04/2023 11:[address] [facility] Hematocrit 37.0 34.8 - 46.1 % 05/04/2023 11:[address] [facility] MCV 100.8(H) 80.0 - 98.0 fL 05/04/2023 11:[address] [facility] MCH 33.8(H) 26.7 - 33.6 pg 05/04/2023 11:[address] [facility] MCHC 33.5 31.7 - 36.3 g/dL 05/04/2023 11:[address] [facility] RDW-CV 12.0 11.3 - 14.8 % 05/04/2023 11:[address] [facility] Platelet Count 161 150 - 420 x10E9/L 05/04/2023 11:[address] [facility] MPV 11.4 7.8 - 11.4 fL 05/04/2023 11:[address] [facility] Neutrophil % 82.7(H) 41.0 - 74.0 % 05/04/2023 11:[address] [facility] Lymphocyte % 10.2(L) 17.0 - 47.0 % 05/04/2023 11:[address] [facility] Monocyte % 6.6 3.0 - 11.0 % 05/04/2023 11:[address] [facility] Eosinophil % 0.1 0.0 - 7.0 % 05/04/2023 11:[address] [facility] Basophil % 0.2 0.0 - 1.6 % 05/04/2023 11:[address] [facility] Immature Granulocytes % 0.2 0.0 - 1.0 % 05/04/2023 11:[address] [facility] Neutrophil Absolute 7.74(H) 1.60 - 7.50 x10E9/L 05/04/2023 11:[address] [facility] Lymphocyte Absolute 0.96(L) 1.00 - 4.40 x10E9/L 05/04/2023 11:[address] [facility] Monocyte Absolute 0.62 0.15 - 1.00 x10E9/L 05/04/2023 11:[address] [facility] Eosinophil Absolute 0.01 0.00 - 0.60 x10E9/L 05/04/2023 11:[address] [facility] Basophil Absolute 0.02 0.00 - 0.13 x10E9/L 05/04/2023 11:[address] [facility] Blood BLOOD SPECIMEN / Unknown Venipuncture / Unknown 05/04/2023 11:10 AM MEDICAL LIAISON 05/04/2023 11:11 AM [facility] Venus Fournier MD LAB - HEMATOLOGY ORD ERABLES [facility] [address] [place] [address] * (ABNORMAL) COMPREHENSIVE METABOLIC PANEL (05/04/2023 11:10 AM [facility]) Only the most recent of3 resultswithin the time period is included. Glucose 103 70 - 105 mg/dL 05/04/2023 11:[address] [facility] Sodium 138 136 - 145 mmol/L 05/04/2023 11:[address] [facility] Potassium 3.8 3.5 - 5.1 mmol/L 05/04/2023 11:[address] [facility] Chloride 109(H) 98 - 107 mmol/L 05/04/2023 11:[address] [facility] CO2 21(L) 22 - 29 mmol/L 05/04/2023 11:[address] [facility] Calcium 8.3(L) 8.4 - 10.4 mg/dL 05/04/2023 11:[address] [facility] Anion Gap 8 6 - 16 mmol/L 05/04/2023 11:[address] [facility] BUN 8 5.3 - 18.7 mg/dL 05/04/2023 11:[address] [facility] Creatinine 0.64 0.57 - 1.11 mg/dL 05/04/2023 11:[address] [facility] Alkaline Phosphatase 66 40 - 150 U/L 05/04/2023 11:[address] [facility] ALT 8 0 - 55 U/L 05/04/2023 11:[address] [facility] AST 15 5 - 34 U/L 05/04/2023 11:[address] [facility] Protein Total 6.5 6.4 - 8.3 gm/dL 05/04/2023 11:[address] [facility] Albumin 3.8 3.4 - 5.0 gm/dL 05/04/2023 11:[address] [facility] Bilirubin Total 0.6 0.2 - 1.2 mg/dL 05/04/2023 11:[address] [facility] eGFR by CKD-EPI >90 >=90 mL/min/1.7 3 m2 05/04/2023 11:30 AM MEDICAL LIAISON [facility] Blood BLOOD SPECIMEN / Unknown Venipuncture / Unknown 05/04/2023 11:10 AM MEDICAL LIAISON 05/04/2023 11:11 AM MEDICAL LIAISON Venus Fournier MD LAB - CHEMISTRY SARKIS SIMPSON Performing Organization Address City/State/[facility] [[email or web address]] Co de Phone Number [facility] [address] [place] [address] * HCG BETA BLOOD QUANTITATIVE (05/04/2023 11:10 AM MEDICAL LIAISON) hCG Quantitative <2.42 mIU/mL 05/04/19 24 11:34 AM MEDICAL LIAISON [facility] Blood BLOOD SPECIMEN / Unknown Venipuncture / Unknown 05/04/2023 11:10 AM MEDICAL LIAISON 05/04/2023 11:11 AM MEDICAL LIAISON Narrative [facility] - 05/04/2023 11:34 AM MEDICAL LIAISON ? hCG Reference Range, mIU/mL: ? Males ? 0-2.0 ? Non Females ? 0-6.0 ? Perimenopausal Females ages 41-55* ?0-7.7 ? Postmenopausal Females age >55* ? 0-14 ? Females, Weeks after Last Menstrual Period ?0.2-1 week ? 5-50 ?1 - 2 weeks ?50-500 ?2 - 3 weeks ?100-5000 ?3 - 4 weeks ?500-10,000 ?4 - 5 weeks ?1000-50,000 ?5 - 6 weeks ?10,000-100,000 ?6 - 8 weeks ?15,000-200,000 ?2 - 3 months ? 10,000-100,000 ?Trophoblastic Disease ?>100,000 *In higher than expected hCG in females > age 40, a serum FSH >20 IU/L makes unlikely. Venus Fournier MD LAB - CHEMISTRY SARKIS SIMPSON Performing Organization Address City/[facility] Phone Number [facility] [address] [phone] * HEPATITIS C AB SCREEN RFLX NAAT QUANT (03/20/2023 10:57 AM MEDICAL LIAISON) Pathologist [facility] Hepatitis C Antibody Non-react jordyn Non-reac tive 03/20/2023 12:41 PM MEDICAL LIAISON [facility] Comment:Hepatitis C Antibody screen indicates [...] Lab Venipuncture / Unknown 03/20/2023 10:57 AM MEDICAL LIAISON 03/20/2023 11:18 AM MEDICAL LIAISON Evy Cormier POLITICAL THEORY PROFESSOR-GEOSPATIAL PROGRAM MANAGEMENT OFFICER LAB - CHEMIS TRY ORDERABLES [facility] [address] [place] [address], [facility] [phone] * (ABNORMAL) LIPID PROFILE (03/20/2023 10:57 AM [facility]) Cholesterol Total 182 <200 mg/dL 03/20/2023 11:53 AM [facility] HDL 50 >40 mg/dL 03/20/2023 11:53 AM [facility] Comment: ATP III Classification of HDL Cholesterol: ? <40 mg/dL: ??Considered a major risk factor. ? >60 mg/dL: ??Considered a negative risk factor. ? LDL Calculated 121(H) <100 mg/dL 03/20/2023 11:53 AM [facility] Comment: ATP III Classification of LDL Cholesterol: ?<100 mg/dL: ??Optimal ? 100 - 129 mg/dL: ??Near Optimal/Above Optimal ? 130 - 159 mg/dL: ??Borderline High ? 160 - 189 mg/dL: ??High ?>190 mg/dL: ??Very High ? ATP III Classification of LDL Cholesterol: ?<100 mg/dL: ??Optimal ? 100 - 129 mg/dL: ??Near Optimal/Above Optimal ? 130 - 159 mg/dL: ??Borderline High ? 160 - 189 mg/dL: ??High ?>190 mg/dL: ??Very High ? Triglycerides 53 <150 mg/dL 03/20/2023 11:53 AM [facility] Comment: ATP III Classification of Triglycerides: ?<150 mg/dL: ??Normal ? 150 - 199 mg/dL: ??Borderline High ? 200 - 400 mg/dL: ??High ?>500 mg/dL: ??Very High Blood BLOOD SPECIMEN / Unknown Lab Venipuncture / Unknown 03/20/2023 10:57 AM MEDICAL LIAISON 03/20/2023 11:22 AM MEDICAL LIAISON Evy Cormier POLITICAL THEORY PROFESSOR-GEOSPATIAL PROGRAM MANAGEMENT OFFICER LAB - CHEMIS TRY ORDERABLES Performing Organization Address City/[facility]/ZIP Co de Phone Number [address] [phone] [phone] * IMAGING/RADIOLOGY/XRAY RESULTS ORDER (06/09/2017 3:18 AM MEDICAL LIAISON) Only the most recent of2 resultswithin the time period is included. Anatomical Region Laterality Modality Other Narrative 06/09/2017 3:18 AM MEDICAL LIAISON Ordered by an unspecified provider. Scanned Document IMAGING * LEVETIRACETAM LEVEL (06/04/2017 7:40 AM MEDICAL LIAISON) Only the most recent of9 resultswithin the time period is included. Levetiracetam 22.50 10 - 40 ug/mL 06/04/2017 8:[address] [facility] Blood BLOOD SPECIMEN / Unknown Lab Venipuncture / Unknown 06/04/2017 7:40 AM MEDICAL LIAISON 06/04/2017 7:43 AM MEDICAL LIAISON Beto Hernandez MD LAB - THERAPEUTIC DR JASSO MONITORING ORDERABLES [facility] [address] [place] [address] * (ABNORMAL) HGB HCT PANEL (06/04/2017 4:54 AM MEDICAL LIAISON) Hemoglobin 8.8(L) 12.0 - 15.6 gm/dL 06/04/2017 5:43 AM MEDICAL LIAISON [facility] Hematocrit 27.0(L) 35.9 - 45.5 % 06/04/2017 5:43 AM MEDICAL LIAISON [facility] Blood BLOOD SPECIMEN / Unknown Lab Venipuncture / Unknown 06/04/2017 4:54 AM MEDICAL LIAISON 06/04/2017 5:19 AM MEDICAL LIAISON Anisha Perez MD LAB - HEMATOLOGY ORD ERABLES [facility] [address] [place] [address] * (ABNORMAL) BLOOD GASES CORD ART (ISTAT) (06/03/2017 5:50 AM MEDICAL LIAISON) Only the most recent of2 resultswithin the time period is included. pH Cord Arterial POCT 7.15(L) 7.20 - 7.34 pH 06/03/2017 5:53 AM MEDICAL LIAISON [facility] pCO2 Cord Arterial POCT 55.7(H) 45 - 55 mmHg 06/03/2017 5:53 AM MEDICAL LIAISON [facility] pO2 Cord Arterial POCT 17 12 - 25 mmHg 06/03/2017 5:53 AM MEDICAL LIAISON [facility] HCO3 Cord Arterial POCT 19.4(L) 22 - 24 mmol/L 06/03/2017 5:53 AM MEDICAL LIAISON [facility] BE Cord Arterial POCT -10(L) -2.9 - 8.3 mmol/L 06/03/2017 5:53 AM MEDICAL LIAISON [facility] TCO2 Cord Arterial POCT 21 mmol/L 06/03/2017 5:[address] [facility] O2 Saturation Cord Art % Calc POCT 15 % 06/03/2017 5:53 AM MEDICAL LIAISON [facility] Site CORD ART 06/03/2017 5:53 AM MEDICAL LIAISON [facility] Sample iSTAT CORD A 06/03/2017 5:53 AM MEDICAL LIAISON [facility] Blood CORD BLOOD SPECIMEN / Unknown 06/03/2017 5:50 AM MEDICAL LIAISON 06/03/2017 5:53 AM MEDICAL LIAISON Nae Duenas MD LAB - POINT OF CARE ORDERABLES [facility] [address], [place] [phone] * (ABNORMAL) BLOOD GASES CORD CHERIE (ISTAT) (06/03/2017 5:44 AM MEDICAL LIAISON) pH Cord Venous POCT 7.25(L) 7.28 - 7.40 pH 06/03/2017 5:[address] [facility] pCO2 Cord Venous POCT 43 35 - 45 mmHg 06/03/2017 5:[address] [facility] pO2 Cord Venous POCT 12(L) 22 - 33 mmHg 06/03/2017 5:[address] [facility] HCO3 Cord Arterial POCT 19(L) 22 - 24 mmol/L 06/03/2017 5:[address] [facility] BE Cord Venous POCT Calc -8(L) -6.4 - 1.6 mmol/L 06/03/2017 5:[address] [facility] TCO2 Cord Venous POCT 20(L) 22 - 30 mmol/L 06/03/2017 5:[address] [facility] O2 Saturation % Cord Venous Calc POCT 11 % 06/03/2017 5:[address] [facility] Site CORD CHERIE 06/03/2017 5:[address] [facility] Sample iSTAT CORD V 06/03/2017 5:[address] [facility] Blood CORD BLOOD SPECIMEN / Unknown 06/03/2017 5:44 AM MEDICAL LIAISON 06/03/2017 5:53 AM [facility] Nae Duenas MD LAB - POINT OF CARE ORDERABLES Performing Organization Address City/State/[facility] [[email or web address]] Co de Phone Number [facility] [address] [place] [address] * (ABNORMAL) DRUG SCREEN TOX URINE PANEL (06/02/2017 8:21 PM MEDICAL LIAISON) [facility] Amphetamines Screen Urine Not Detected Not Detected 06/02/2017 8:[address] [facility] Barbiturates Screen Urine Not Detected Not Detected 06/02/2017 8:[address] [facility] Benzodiazepines Screen Urine Not Detected Not Detected 06/02/2017 8:[address] [facility] Cannabinoids Screen Urine Detected(A) Not Detected 06/02/2017 8:[address] [facility] Cocaine Screen Urine Not Detected Not Detected 06/02/2017 8:[address] [facility] Methadone Screen Urine Not Detected Not Detected 06/02/2017 8:[address] [facility] Opiate Screen Urine Not Detected Not Detected 06/02/2017 8:[address] [facility] Phencyclidine Screen Urine Not Detected Not Detected 06/02/2017 8:56 PM MEDICAL LIAISON [facility] Urine URINE / Unknown Collection / Unknown 06/02/2017 8:21 PM MEDICAL LIAISON 06/02/2017 8:29 PM MEDICAL LIAISON Narrative [facility] - 06/02/2017 8:56 PM MEDICAL LIAISON This drug screen is designed for MEDICAL purposes only. It is not to be used for legal purposes, including but not limited to worker's comp, police investigations, occupational issues, child custody, etc. ??Any positive result is only presumptive and must be confirmed with a separate confirmatory test ordered by the physician. Drug Screening Test Cutoff Values: AMPHETAMINES ?1000 ng/mL BARBITURATES ? 200 ng/mL BENZODIAZEPINES ??200 ng/mL CANNABINOIDS(THC) 50 ng/mL COCAINE ?300 ng/mL METHADONE ?300 ng/mL OPIATES ?300 ng/mL PHENCYCLIDINE(PCP)25 ng/mL Malinda Jamison DO LAB - URINE PAULINA VIOLET ORDERABLES Performing Organization Address City/[facility]/ZIP Co de Phone Number [facility] [address] [place] [address] * GLUCOSE PROTEIN KETONE URINE - POINT OF CARE (06/01/2017 9:34 AM MEDICAL LIAISON) Only the most recent of9 resultswithin the time period is included. Glucose UA neg Negative [facility] Protein UA neg Negative [facility] Ketone UA neg Negative [facility] QC Verified Yes Yes [facility] POC T TESTING Urine URINE / Unknown 06/01/2017 9 :34 AM MEDICAL LIAISON Ada Loredo MD LAB - POINT OF CARE ORDERABLES Performing Organization Address [facility] [[email or web address]] Co de Phone Number [facility] POCT TESTING [address] [place] [address] * CULTURE STREP B (04/29/2017 2:17 PM MEDICAL LIAISON) Culture Strep B Negative for beta-hemolytic Streptococcus Group B CIRILO 05/02/2017 2:46 PM MEDICAL LIAISON [facility] Microbiology MISCELLANEOUS SAMPLES / Unknown Collection / Unknown 04/29/2017 2:17 PM MEDICAL LIAISON 04/29/2017 2:52 PM MEDICAL LIAISON Yoel Denny MD LAB - MICROBIOLO GY ORDERABLES Performing Organization Address City/[facility] [[email or web address]] Co de Phone Number [facility] [address] [place] [phone] * (ABNORMAL) INFLUENZA A+B ANTIGEN RAPID (04/01/2017 1:16 PM MEDICAL LIAISON) Influenza A Antigen Positive(A) Negative 04/01/2017 1:42 PM MEDICAL LIAISON [facility] Influenza B Antigen Negative Negative 04/01/2017 1:42 PM MEDICAL LIAISON [facility] Microbiology NASOPHARYNGEAL SWAB / Unknown Collection / Unknown 04/01/2017 1:16 PM MEDICAL LIAISON 04/01/2017 1:21 PM MEDICAL LIAISON Narrative [facility] - 04/01/2017 1:42 PM MEDICAL LIAISON Droplet Precautions Required. ? The sensitivity of rapid tests for influenza A and B antigens, according to the published reports , ranges from 30-70% when compared to PCR and viral culture. For H1N1 influenza A, the sensitivity varies from 30-50%. For other influenza A strains, the sensitivity ranges from 50-70%. For influenza B virus, the sensitivity is approximately 30%. A negative result does not exclude influenza infection. ? False-positive (and true-negative) influenza test results are more likely to occur when disease prevalence is low, which is generally at the beginning and end of the influenza season. False-negative (and true-positive) influenza test results are more likely to occur when disease prevalence is high, which is typically at the height of the influenza season. Shira Fleming MD LAB - MICROBIOLOGY O RDERABLES Performing Organization Address City/[facility]/ZIP Co de Phone Number [facility] [address] [place] [address] * SONOGRAM - COMPLETE (03/18/2017 1:26 PM MEDICAL LIAISON) Only the most recent of4 resultswithin the time period is included. Anatomical Region Laterality Modality Other 03/18/2017 1:26 PM MEDICAL LIAISON Narrative 03/18/2017 2:00 PM MEDICAL LIAISON ? [facility] ?PHONE: ??FAX: Pat. Name: ?MELISSA SANTOS Pat. No: ?[id number] Study Date: ?? 03/18/2017 ??1:26pm , Age: ? 1990, 27 Pregnancies: ?? 1, Para 0 Height: ? 66 in Weight: ? 113 lb LMP: ?Unknown GA by [facility]: ?28w5d GA by US: ? 29w1d GA Selected: ??28w5d (From First U) ROSE MARIE: ?06/05/2017 Referring MD: Quentin, , [facility] [employer] Reg[employer]oving Machine Operator: ??Lisa Nieves RDMS/NINA CPT4: ? 24929 BMI: ?18.24 Hist/Ind: ? Growth ?Epilepsy ?Tobacco Use MEASUREMENTS & AGE ? GROWTH EVALUATION Measurement ??GA ? Range ? Srce %for GA Ratios ----- ---- ------- BPD ??7.6 cm 30w2d (91x1f-76y1z) Hadl BPD 73% FL/BPD 0.70 (0.71 - 0.87* HC ??26.9 cm 29w2d (30g0x-88t3g) Hadl HC ??63% FL/AC ??0.22 (0.20 - 0.24) AC ??24.5 cm 28w5d (77m0c-46l9t) Hadl AC ??50% HC/AC ??1.10 (0.99 - 1.18) FL ?? 5.3 cm 28w1d (38k2p-75b5l) Hadl FL ??39% CI ? 0.82 (0.70 - 0.86) HL ?? 4.9 cm 28w5d (97d6k-01e6o) Roberto HL ??50% GA for sonogram 29w1d (31q4b-38p5g) ?? Weight Estimate: based on (BPD,HC,AC,FL) Avg ?Weight: 1268 gm (1983-2447) Hadlo ? : 2lbs, 12oz ? Normal: 1327 gm (1101- 1552) Hadlo ? Wt% ? 40% for 28w5d Heart Rate: 136 bpm Amniotic Fluid Index: 20.6cm (09.3-23.0) Q1: 6.7cm ??Q2: 3.9cm ??Q3: 6.1cm ??Q4: 3.9cm ?? CLINICAL SUMMARY Study Number: 4 A single fetus is identified in cephalic presentation. ??The measurements today are consistent with appropriate growth. ?? The ROSE MARIE selected is based on a prior ultrasound. ??The estimated weight is at the 40%. ??The amniotic fluid volume is within normal limits. ??The placenta is posterior left lateral. The patient was advised that ultrasound does not allow detection of all structural or chromosomal abnormalities. IMPRESSION: Single, live vertex IUP at 28w5d Normal amniotic fluid volume Appropriate growth Placental location: Posterior left lateral RECOMMEND: Follow up ultrasound as clinically indicated. Thank you for allowing us the opportunity to care for your patient. Nae Duenas MD <Electronic Signature> ??03/18/2017 01:59pm Ananda Scherer MD [facility] ORDERABLES * HIV-1 HIV-2 ANTIBODY + HIV P24 AG PANEL (03/04/2017 12:55 PM MEDICAL LIAISON) HIV1/2 Ab + P24 Ag Non Reactive Non Reactive 03/04/2017 4:59 PM MEDICAL LIAISON [facility] Blood BLOOD SPECIMEN / Unknown Venipuncture / Unknown 03/04/2017 12:55 PM MEDICAL LIAISON 03/04/2017 1:51 PM MEDICAL LIAISON Narrative [facility] - 03/04/2017 4:59 PM MEDICAL LIAISON No Laboratory evidence of HIV infection. Beto Hernandez MD LAB - CHEMISTRY SARKIS SIMPSON [facility] [address] [address] * RPR (03/04/2017 12:55 PM MEDICAL LIAISON) Only the most recent of2 resultswithin the time period is included. RPR Non Reactive Non Reactive 03/05/2017 8:15 AM MEDICAL LIAISON [facility] Blood BLOOD SPECIMEN / Unknown Venipuncture / Unknown 03/04/2017 12:55 PM MEDICAL LIAISON 03/04/2017 1:51 PM MEDICAL LIAISON Beto Hernandez MD LAB - CHEMISTRY SARKIS SIMPSON [facility] [address] [place] [id number] * GLUCOSE CHALLENGE (03/04/2017 12:55 PM MEDICAL LIAISON) [facility] Glucose Challenge 103 64 - 140 mg/dL 03/04/2017 2:18 PM MEDICAL LIAISON [facility] Glucose Challenge Time 03/04/2017 2:18 PM MEDICAL LIAISON [facility] Blood BLOOD SPECIMEN / Unknown Venipuncture / Unknown 03/04/2017 12:55 PM MEDICAL LIAISON 03/04/2017 1:51 PM MEDICAL LIAISON Beto Hernandez MD LAB - CHEMISTRY SARKIS SIMPSON [facility] [address] [place] [id number] * LAB RESULTS ORDER (12/02/2016 12:35 AM CDT) Narrative 12/02/2016 12:35 AM CDT Ordered by an unspecified provider. Scanned Document LAB - THERAPEUTIC DR UG MONITORING ORDERABLES * EEG (11/27/2016 12:23 PM CDT) Narrative [facility] - 11/27/2016 12:23 PM CDT Kevin Chase MD ? 11/27/2016 12:23 PM ? [facility] 5E ANTEPARTUM/MOTHER BABY [address] [place] [address] Electroencephalogram Melissa Santos 11/27/2016 Indication: ?? Melissa Santos is a 26 y.o. female who presents with recurrent seizure. Current Facility-Administered Medications Medication ? ? folic acid (FOLVITE) tablet 4 mg ? ? levETIRAcetam (KEPPRA) 1,000 mg in 0.9% NaCl 100 mL IVPB ? ? vitamin with iron tablet 1 Tab ? ? iron polysaccharides (NIFEREX 150) capsule 150 mg ? ? acetaminophen (TYLENOL) tablet 650 mg ? ? ondansetron (ZOFRAN) injection 4 mg Or ? ? metoclopramide (REGLAN) injection 10 mg Or ? ? prochlorperazine (COMPAZINE) suppository 25 mg ? ? calcium carbonate (TUMS) chew tablet 2 Tab ? ? docusate sodium (COLACE) capsule 100 mg ? ? polyethylene glycol 3350 (MIRALAX) packet 17 g ? ? simethicone (MYLICON) chew tablet 160 mg ? ? diphenhydrAMINE (BENADRYL) capsule 25 mg ? ? 0.9% NaCl injection 10 mL Procedure: Pt is awake and asleep during the recording. A 16 channel EEG was performed in the International 10-20 system. One lead of EKG records a regular rate of 80 bpm. The technical quality is good.The background rhythm is alpha in the range of 8-9 hertz, with faster beta activity present anteriorly. Voltages range from 20-75 microvolts. Infrequent spikes and polyspikes were noted in right anterior temporal leads.Hyperventilation was not performed and photic stimulation produced no abnormal responses. Sleep was noted by presence of K complexes. Impression: This is an abnormal electroencephalogram indicative of infrequent right temporal spikes. This puts her at risk for partial seizure. HUMBERTO Haas MD, PhD Diplomate, [place] Board of Psychiatry and Neurology (ABPN) Board Certified in Neurology and Clinical Neurophysiology [facility], [address] [place] [address] (office) [phone] (FAX) Malinda Jamison DO NEUROLOGY ORDER YURIDIA [facility] * CHLAMYDIA + GC AMPLIFIED PROBE (11/26/2016 9:36 PM CDT) [facility] Chlamydia Amplified Probe Negative Negative 11/27/2016 11:35 AM CDT [facility] GC Amplified Probe Negative Negative 11/27/2016 11:35 AM CDT [facility] Microbiology URINE / Unknown Collection / Unknown 11/26/2016 9:36 PM CDT 11/26/2016 9:51 PM CDT Narrative [facility] - 11/27/2016 11:35 AM CDT This test was developed and its performance characteristics determined by the [facility], [facility]. Female urine specimens tested by the [facility] [place] have not been cleared or approved by the U.S. Food and Drug Administration (FDA). The laboratory is regulated under the Clinical Laboratory Improvement Amendments (CLIA) as qualified to perform high-complexity testing. This test is used for clinical purposes. It should not be regarded as investigational or for research. Results based on detection/no detection of ribosomal RNA by amplified method. Beto Hernandez MD LAB - MICROBIOLOGY O RDERABLES Performing Organization Address City/[facility]/ZIP Co de Phone Number [facility] [address] [phone] * HIV-1 HIV-2 ANTIBODY + HIV P24 AG RAPID PNL (11/26/2016 9:02 PM CDT) [facility] HIV1/2 Ab + P24 Ag Rapid Non Reactive Non Reactive 11/26/2016 10:12 PM CDT [facility] Blood BLOOD SPECIMEN / Unknown Venipuncture / Unknown 11/26/2016 9:02 PM CDT 11/26/2016 9:30 PM CDT Narrative [facility] - 11/26/2016 10:12 PM CDT No Laboratory evidence of HIV infection. Beto Hernandez MD LAB - SEROLOGY ORDER YURIDIA Performing Organization Address City/[facility]/ZIP Co de Phone Number [facility] [address] [place] [address] * RUBELLA IMMUNE STATUS (11/26/2016 9:01 PM CDT) [facility] Rubella Antibody IgG Immune Status Equivocal - Suggest Retesting 11/27/2016 1:10 AM CDT [facility] Blood BLOOD SPECIMEN / Unknown Venipuncture / Unknown 11/26/2016 9:01 PM CDT 11/26/2016 9:30 PM CDT Beto Hernandez MD LAB - CHEMISTRY SARKIS SIMPSON Performing Organization Address City/[facility]/ZIP Co de Phone Number [facility] [address] [place] [address] * HEPATITIS B SURFACE ANTIGEN W RFLX CONFIRMATION (11/26/2016 9:01 PM CDT) HBsAg Non Reactive Non Reactive 11/26/2016 10:29 PM CDT [facility] Blood BLOOD SPECIMEN / Unknown Venipuncture / Unknown 11/26/2016 9:01 PM CDT 11/26/2016 9:30 PM CDT Beto Hernandez MD LAB - CHEMISTRY SARKIS SIMPSON Performing Organization Address City/[facility] [[email or web address]] Co de Phone Number [facility] [address] [place] [address] * BLOOD TYPE VERIFICATION (11/19/2016 9:00 PM CDT) ABO O 11/26/2016 10:17 PM CDT [facility] Rh Type Positive 11/26/2016 10:17 PM CDT [facility] Blood Bank BLOOD SPECIMEN / Unknown 11/19/2016 9:00 PM CDT 11/26/2016 10:12 PM CDT Ananda Scherer MD LAB - BLOOD BANK ORD DANE [facility] [address] [place] [id number] [place] [address] Care Teams Supervisor Instrument Mechanics Relationship Specialty Start Date End Date Person, Evy EspinozaDOMINGO-GEOSPATIAL PROGRAM MANAGEMENT OFFICER PCP - General Nurse Practitioner Family 03/20/23
--- OUTSIDE RECORDS SUMMARY | 2024-05-02 12:06 | XMS_ITS | Referral Summary ---
Author Organization [facility] Address [address] [place] [address] Care Team Providers Care Cut Out And Marking Machine Operator Name Role Phone No, Physician Primary Care Provider [phone] Encounters Date Type Department Care Team Description 02/09/2024 12:28 PM CYBER DEFENSE INCIDENT RESPONDER - 02/09/2024 11:59 PM CYBER DEFENSE INCIDENT RESPONDER Hospital Encounter [facility] Emergency, Room R Discharge Disposition: Discharge to home or self care 02/08/2024 3:32 AM CYBER DEFENSE INCIDENT RESPONDER - 02/08/2024 6:12 AM CYBER DEFENSE INCIDENT RESPONDER Emergency [facility] Emergency Department [address] [place] [address] Brian Velásquez MD Panic attack (Primary Dx) Discharge Disposition: Discharge to home or self care from Last 3 Months Allergies Active Allergy Reactions Criticality Noted Date [...] difficulty obtain medication. Seizure 05/31/2014 Psychosis 09/30/2012 Social History Tobacco Use Types Packs/Day Years [...] on file Legal Sex Female 6:37 AM CYBER DEFENSE INCIDENT RESPONDER Gender Identity Not on file Sexual Orientation Not on file Last Filed Vital Signs Vital Sign Reading Time Taken Comments Blood Pressure 113/71 02/08/2024 5:30 AM CYBER DEFENSE INCIDENT RESPONDER Pulse 87 02/08/2024 5:30 AM CYBER DEFENSE INCIDENT RESPONDER Temperature 36.6 ??C (97.8 ??F) 02/08/2024 3:24 AM CS T Respiratory Rate 23 02/08/2024 5:30 AM CYBER DEFENSE INCIDENT RESPONDER Oxygen Saturation 96% 02/08/2024 5:30 AM CYBER DEFENSE INCIDENT RESPONDER Inhaled Oxygen Concentration - - Weight 54.4 kg (120 lb) 01/17/2024 5:18 PM CDT Height 165.1 cm (5' 5 ) 01/26/2023 4:33 PM CDT Body Mass Index 19.97 01/26/2023 4:33 PM CDT Plan of Treatment Not on file Procedures Procedure Name Priority Date/Time Associated Diagnosis Comments ECG 12-LEAD Routine 02/08/2024 4:40 AM CYBER DEFENSE INCIDENT RESPONDER POCT GLUCOSE DEVICE Routine 02/08/2024 4 :24 AM CYBER DEFENSE INCIDENT RESPONDER SERUM HEPATITIS C AB Routine 05/31/2014 9:48 AM CYBER DEFENSE INCIDENT RESPONDER from Last 3 Months or Most Recently Relevant to Health Maintenance Results * ECG 12 lead (02/08/2024 4:40 AM CYBER DEFENSE INCIDENT RESPONDER) 02/08/2024 4:40 AM CYBER DEFENSE INCIDENT RESPONDER Narrative [facility] - 02/09/2024 7:37 AM CYBER DEFENSE INCIDENT RESPONDER Vent Rate: 78 bpm RR Interval: 769 msec TX Interval: 144 msec QRS Duration: 73 msec QT Interval: 384 msec QTC Interval: 417 msec P-R-T [place]: 78 - 39 - -86 degrees IMPRESSION: SINUS RHYTHM MODERATE T-WAVE ABNORMALITY, CONSIDER LATERAL ISCHEMIA ??[-0.1+ mV T-WAVE IN I/aVL/V5/V6] MODERATE T-WAVE ABNORMALITY, CONSIDER INFERIOR ISCHEMIA ??[-0.1+ mV T-WAVE IN II/aVF] ABNORMAL ECG NO CHANGE FROM PREVIOUS TRACING NOTED Electronically Signed By: Aroldo Bland MD us Giana Guy MD ECG ORDERABLES Final Result Performing Organization Address City/[facility]/ZIP Co de Phone Number [facility] * POCT glucose (02/08/2024 4:24 AM CYBER DEFENSE INCIDENT RESPONDER) Pathologist [facility] [place] Glucose, POC 168 70 - 199 mg/dL Blood 02/08/2024 4:24 AM CYBER DEFENSE INCIDENT RESPONDER 02/08/2024 4:24 AM CYBER DEFENSE INCIDENT RESPONDER us Brian Velásquez MD LAB POCT ORDERABLES - DEVICE Final Result [facility] [address] [facility] Department [place] [address] * Serum Hepatitis C ab (05/31/2014 9:48 AM CYBER DEFENSE INCIDENT RESPONDER) Pathologist [facility] [place] HCV ab Negative NEG HISTORICAL RESULTS Serum 05/31/2014 9:48 AM CYBER DEFENSE INCIDENT RESPONDER Narrative HISTORICAL RESULTS - 06/01/2014 3:57 AM CYBER DEFENSE INCIDENT RESPONDER Interpretive Data If confirmation is required, call Laboratory Customer Service to request sample to be sent to [facility] for Hepatitis C Virus (HCV) RNA Detection and Quantitation by Real-Time Reverse Servicer Coin Machines-PCR (RT-PCR). Current interpretive data was last revised on 2011 us Adam Dean MD LAB BLOOD ORDERABLES Final Res ult HISTORICAL RESULTS from Last 3 Months or Most Recently Relevant to Health Maintenance Insurance Care Teams Cut Out And Marking Machine Operator Relationship Specialty Start Date End Date No, Physician PCP - General 01/26/23
--- OUTSIDE RECORDS SUMMARY | 2024-05-02 12:06 | XMS_ITS | CONTINUITY OF CARE DOCUMENT ---
Author Name [email or web address] Address Unknown Organization [facility] Address [id number] [place] [address] [address] [place] [address] Phone [phone] Care Team Providers Care Soda Drier Feeder Name Role Phone Rajendra JOHNSTON, Deb Unavailable [phone] COSMO JOHNSTON, MERLENE Unavailable INSURANCE PROVIDERS Payer name Policy type / Coverage type Rachelle red libertarian [employer] [facility] Medicaid 0 [id number]
--- OUTSIDE RECORDS SUMMARY | 2024-05-02 12:06 | XMS_ITS | Referral Summary ---
Author Organization [facility] Address [address] [place] [address] Care Team Providers Care Motor Operator Name Role Phone Evy Cormier Primary Care Provid er Source Comments [facility] Affiliates and Associated Physician Practices is amultiple site organization consisting of ambulatory clinics and hospital sitesin [place], [place], [place] and [place]. This disclosure is being madepursuant to the Care Everywhere program and may not contain all information available regarding this patient. Last updated 17.[facility] Encounters Date Type Department Care Team Description 04/22/2024 Travel 04/22/2024 3:30 PM SERVICE MECHANIC Office Visit [facility] [address] [place] [phone] Cary Williamson DO Encounter for contraceptive management, unspecified type (Primary Dx) 04/14/2024 Travel 04/04/2024 Refill [facility] [address] [place] [phone] PersonEvy APRN-CNP MEDICATION REFILL 03/25/2024 Orders Only [facility] [address] [place] [phone] Mariano Young, RN Encounter for contraceptive management, unspecified type 03/08/2024 Travel 02/23/2024 Travel from Last 3 Months Allergies Active Allergy Reactions Criticality Noted Date Comments Ketamine Other 05/04/2023 Severe Anxiety [place] Flavor Swelling,Urticaria Medium 11/26/2016 [facility] Enzyme [...] once daily 90 tablet 3 03/20/2023 04/22/19 25 Discontinu ed(Reorder ) Active Problems Patient Care [...] Resolved Date Psychosis 09/30/2012 03/20/2023 07/10/2023 Immunizations Name Administration Dates Next Due HEP B VACCINE, ADULT 3 DOSE 09/23/2023, 4,03/20/2023 INFLUENZA VACCINE, QUADR. (F LUZONE; FLULAVAL; FLUARIX; AFLURIA QUADRIVALENT; 6MO+), 0.5 ML (IIV4) 03/17/2019,01/28/2017 MMR 06/05/2017 TDAP (7yrs+) 03/18/2017 Social History Tobacco Use Types Packs/Day Years [...] file Travel History Travel Start Travel End [place] 04/02/2024 04/10/2024 Last Filed Vital Signs Vital Sign Reading Time Taken Comments Blood Pressure 118/80 04/22/2024 3:40 PM SERVICE MECHANIC Pulse 95 04/22/2024 3:40 PM SERVICE MECHANIC Temperature 36.6 ??C (97.8 ??F) 04/22/2024 3:40 PM CS T Respiratory Rate 18 05/22/2023 10:42 AM SERVICE MECHANIC Oxygen Saturation 98% 04/22/2024 3:40 PM SERVICE MECHANIC Inhaled Oxygen Concentration - - Weight 64.9 kg (143 lb) 04/22/2024 3:40 PM SERVICE MECHANIC Height 165.1 cm (5' 5 ) 04/22/2024 3:40 PM SERVICE MECHANIC Body Mass Index 23.8 04/22/2024 3:40 PM SERVICE MECHANIC Functional Status Functional Status Response Date of Assess ment Is person deaf or have serious hearing difficult y? No 05/05/2023 Is person blind or have serious difficulty seein g? No 05/05/2023 Does person have serious dif ficulty walking/climbing stairs? No 05/05/2023 Does person have difficulty dressing/bathing? No 05/05/2023 Does person have difficulty doing errands alone? No 05/05/2023 Cognitive Status Response Date of Assessm ent Does person have difficulty concentrating/remembering/making decisions? No 05/05/2023 Plan of Treatment Not on file Procedures Procedure Name Priority Date/Time Associated Diagnosis Comments HEPATITIS C AB SCREEN RFLX NAAT QUANT Routine 03/20/2023 10:57 AM SERVICE MECHANIC Routine adult health maintenance HIV-1 HIV-2 ANTIBODY + HIV P24 AG PANEL Routine 03/04/2017 12:55 PM SERVICE MECHANIC Supervision of high risk in first trimester (HCC) from Last 3 Months or Most Recently Relevant to Health Maintenance Results * HEPATITIS C AB SCREEN RFLX NAAT QUANT (03/20/2023 10:57 AM SERVICE MECHANIC) Hepatitis C Antibody Non-react jordyn Non-reac tive 03/20/2023 12:41 PM SERVICE MECHANIC [facility] Comment:Hepatitis C Antibody screen indicates [...] Lab Venipuncture / Unknown 03/20/2023 10:57 AM SERVICE MECHANIC 03/20/2023 11:18 AM SERVICE MECHANIC Evy Espinoza Person SUPERVISOR STAVE CUTTING-SALES ORDER SPECIALIST LAB - CHEMIS TRY ORDERABLES [facility] [address] [address], [facility] [phone] * HIV-1 HIV-2 ANTIBODY + HIV P24 AG PANEL (03/04/2017 12:55 PM SERVICE MECHANIC) HIV1/2 Ab + P24 Ag Non Reactive Non Reactive 03/04/2017 4:59 PM SERVICE MECHANIC [facility] Blood BLOOD SPECIMEN / Unknown Venipuncture / Unknown 03/04/2017 12:55 PM SERVICE MECHANIC 03/04/2017 1:51 PM SERVICE MECHANIC Narrative [facility] - 03/04/2017 4:59 PM SERVICE MECHANIC No Laboratory evidence of HIV infection. Beto Hernandez MD LAB - CHEMISTRY SARKIS SIMPSON Performing Organization Address City/State/[facility] Co de Phone Number [facility] [address] [facility] [place] [address] from Last 3 Months or Most Recently [...] 8:41 PM 11/28/2016 6:05 PM Care Teams Motor Operator Relationship Specialty Start Date End Date Person, EvyMADIHA Ruano PCP - General Nurse Practitioner Family 03/20/23
== END 2024-05-02 10:59 | disposition home or self-care (01) ==
PROVIDERS: Visit Provider Psychiatry & Neurology Neurology
DX: G35 Multiple sclerosis (principal); F41.9 Anxiety disorder, unspecified; G40.909 Epilepsy, unspecified, not intractable, without status epilepticus; R90.82 White matter disease, unspecified
CPT/HCPCS: 70553; A9577

== ENCOUNTER 2024-09-10 13:38 | Emergency (ER) | payer OTHER, SELFPAY ==
--- NOTE | ~2024-09-10 | XR_ITS ---
EXAMINATION: XR chest 2V Exam Date/Time: 09/10/2024 14:09 CDT HISTORY: sob and chest pain, HX PNEUMONIA PNEUMOTHORAX Comparison: 09/16/2023. RESULT: Lines, tubes, and devices: Right apical staple line. Lungs and pleura: Clear. Cardiomediastinal silhouette: Stable. Other: No acute osseous or upper abdominal finding. IMPRESSION: No acute cardiopulmonary process. Reviewed, dictated and finalized at location K.
--- OUTSIDE RECORDS SUMMARY | 2024-09-10 13:40 | XMS_ITS | Clinical Summary ---
Author Organization [facility] [employer] Address [address] [place] [address] Care Team Providers Care Hot Plate Plywood Press Offbearer Name Role Phone Person, Evy CLEARY Primary Care Provid er Source Comments [facility] [employer],non-owned Affiliates and Associated Physician Practices is amultiple site organization consisting of ambulatory clinics and hospital sitesin [place], [place], [place] and [place]. This disclosure is being madepursuant to the Care Everywhere program and may not contain all information available regarding this patient. Last updated 17.[facility] [employer] Allergies Active Allergy Reactions Criticality Noted Date Comments Ketamine Other 05/04/2023 Severe Anxiety [place] Flavor Swelling,Urticaria Medium 11/26/2016 [facility] Enzyme Swelling 05/05/2023 Penicillins Swelling 01/28/2017 Medications * This document contains information received from the source organization and may not represent a complete record from that organization. * Be aware that medications may not be up to date on this document. Alwaysverify current medications with the patient. acetaminophen (Tylenol) 500 MG tablet Take 2 (two) tablets by mouth every 6 hours Maximum allowable Acetaminophen amount = 4 Grams (4000 mg) / 24 hours. 05/06/19 24 Active levETIRAcetam (Keppra) 750 MG tablet TAKE 2 TABLETS BY MOUTH TWICE DAILY 360 tablet 07/27/19 24 Active OXcarbazepine (Trileptal) 300 MG tabletIndications :Nonintractable epilepsy without status epilepticus, unspecified epilepsy type (HCC) TAKE 1 TABLET BY MOUTH TWICE DAILY 90 tablet 3 09/21/19 24 Active hydrOXYzine HCl (Atarax) 25 MG tablet Take 1 (one) tablet by mouth 2 times daily as needed for Itching 60 tablet 1 02/23/20 24 Active Laura 90-20 MCG tabletIndications :Encounter for contraceptive management, unspecified type Take 1 (one) tablet by mouth once daily 90 tablet 3 04/22/19 25 Active clonazePAM (KlonoPIN) 0.5 MG tabletIndications :PTSD (post-traumatic stress disorder) Take 1 (one) tablet by mouth once daily as needed for Anxiety 30 tablet 06/08/19 25 Active guanFACINE (Tenex) 2 MG tablet Take 1 (one) tablet by mouth at bedtime 30 tablet 1 08/18/19 25 Active sertraline (Zoloft) 100 MG tablet Take 2 (two) tablets by mouth once daily 60 tablet 1 08/18/19 25 Active guanFACINE (Tenex) 1 MG tablet Take 1 (one) tablet by mouth at bedtime 30 tablet 1 07/14/19 25 025 Discontin ued(Dose Adjustmen t) sertraline (Zoloft) 100 MG tablet Take 2 (two) tablets by mouth once daily 60 tablet 1 07/14/19 25 025 Discontin ued(Reord er) Active Problems Patient Care Coordination No te Formatting of this note migh t be different from the original. [facility] 12/2016 Problem Noted Date Diagnosed Date Primary spontaneous pneumothorax 05/04/2023 Status post seizure 06/02/2017 Tobacco smoking affecting in second tr imester 12/31/2016 Supervision of high risk in first trim manish 11/26/2016 Epilepsy 11/26/2016 Seizure 05/31/2014 Resolved Problems Problem Noted Date Diagnosed Date Resolved Date Psychosis 09/30/2012 03/20/2023 07/10/2023 Encounters * This document contains information received from the source organization and may not represent a complete record from that organization. Date Type Department Care Team Description 08/17/2024 Travel 08/04/2024 Refill [facility] [address] [place] [phone] Evy Cormier APRN-SIMRAN MEDICATION REFILL 08/03/2024 Refill [facility] [address] [facility] [place] [address] Chuck Kaur II, MD MEDICATION REFILL 07/13/2024 Travel from Last 3 Months Immunizations Immunization Administration Dates Next Due HEP B VACCINE, [...] Date Recorded Patient Health Questionnaire-2 Score 0 08/17/2024 Comments No Sex and Gender Information Value Date Recorded Sex Assigned at Not on file Legal Sex Female 6:15 PM CDT Gender Identity Not on file Sexual Orientation Not on file Last Filed Vital Signs Vital Sign Reading Time Taken Comments Blood Pressure 106/75 08/17/2024 9:57 AM CDT Pulse 96 08/17/2024 9:57 AM CDT Temperature 36.6 C (97.8 F) 04/22/2024 3:40 PM QUALITY CONTROL TECHNICIAN Respiratory Rate 18 05/22/2023 10:42 AM QUALITY CONTROL TECHNICIAN Oxygen Saturation 100% 08/17/2024 9:57 AM CDT Inhaled Oxygen Concentration - - Weight 63 kg (139 lb) 08/17/2024 9:57 AM CDT Height 165.1 cm (5' 5) 04/22/2024 3:40 PM QUALITY CONTROL TECHNICIAN Body Mass Index 23.13 04/22/2024 3:40 PM QUALITY CONTROL TECHNICIAN Plan of Treatment Health Maintenance Due Date Last Done Comments PAP SMEAR 1989 PNEUMOCOCCAL VACCINE (1 of 2 - PCV) 02/14/2008 COVID-19 VACCINE (1 - season) 2023 INFLUENZA VACCINE (Season Ended) 2024 03/17/2019, 01/28/2017 DTAP/TDAP/TD VACCINES (2 - Td or Tdap) 03/18/2027 03/18/2017 ZOSTER VACCINE (1 of 2) 2039 HIV SCREENING Completed 03/04/2017 HEPATITIS C SCREENING Completed 03/20/2023 HEPATITIS B VACCINE Completed 09/23/2023, 05/21/2023, 03/20/2023 DEPRESSION SCREENING Discontinued 08/17/2024, 07/13/2024, 06/07/2024, Additional history exists HIB VACCINE Aged Out No longer eligi ble based on patient's age to complete this topic HPV VACCINE Aged Out No longer eligi ble based on patient's age to complete this topic MENINGOCOCCAL (Group B) VACCINE SHARED DECISION-MAKING Aged Out No longer eligible based on patient's age to complete this topic MENINGOCOCCAL GROUPS A/C/Y/W VACCINE Aged Out No longer eligible based on patient's age to complete this topic Procedures Procedure Name Priority Date/Time Associated Diagnosis Comments HEPATITIS C AB SCREEN RFLX NAAT QUANT Routine 03/20/2023 10:57 AM QUALITY CONTROL TECHNICIAN Routine adult health maintenance HIV-1 HIV-2 ANTIBODY + HIV P24 AG PANEL Routine 03/04/2017 12:55 PM QUALITY CONTROL TECHNICIAN Supervision of high risk in first trimester from Last 3 Months or Most Recently Relevant to Health Maintenance Results * HEPATITIS C AB SCREEN RFLX NAAT QUANT (03/20/2023 10:57 AM QUALITY CONTROL TECHNICIAN) Hepatitis C Antibody Non-react jordyn Non-reac tive 03/20/2023 12:41 PM QUALITY CONTROL TECHNICIAN [facility] Comment:Hepatitis C Antibody [...] Lab Venipuncture / Unknown 03/20/2023 10:57 AM QUALITY CONTROL TECHNICIAN 03/20/2023 11:18 AM QUALITY CONTROL TECHNICIAN Evy Cormier VEGETABLE FARMING SUPERVISOR-RAIL TRANSPORTATION OPERATOR LAB - CHEMISTRY ORDE CALVIN Final Result [facility] [address] [place] [address], [facility] [phone] * HIV-1 HIV-2 ANTIBODY + HIV P24 AG PANEL (03/04/2017 12:55 PM QUALITY CONTROL TECHNICIAN) [facility] HIV1/2 Ab + P24 Ag Non Reactive Non Reactive 03/04/2017 4:59 PM QUALITY CONTROL TECHNICIAN [facility] Blood BLOOD SPECIMEN / Unknown Venipuncture / Unknown 03/04/2017 12:55 PM QUALITY CONTROL TECHNICIAN 03/04/2017 1:51 PM QUALITY CONTROL TECHNICIAN Narrative [facility] - 03/04/2017 4:59 PM QUALITY CONTROL TECHNICIAN No Laboratory evidence of HIV infection. Beto Hernandez MD LAB - CHEMISTRY ORDERABLES Final Result Performing Organization Address [facility] Co de Phone Number [facility] [address] [place] [address] from Last 3 Months or Most Recently Relevant to Health Maintenance Insurance MEDICAID - OUT OF STATE Advance Directives * Full Code (Latest Code [...] 8:41 PM 11/28/2016 6:05 PM Care Teams Hot Plate Plywood Press Offbearer Relationship Specialty Start Date End Date Person, Evy DanielsDOMINGO pak-SIMRAN PCP - General Nurse Practitioner Family 03/20/23
--- OUTSIDE RECORDS SUMMARY | 2024-09-10 13:41 | XMS_ITS | Referral Summary ---
Author Organization [facility] Address [address] [place] [address] Care Team Providers Care Daylight Driller Name Role Phone Chandan Bradley MD Primary Care Provider [phone] Encounters Date Type Department Care Team Description 09/07/2024 10:13 AM CDT - 09/07/2024 2:03 PM CDT Emergency [facility] Emergency Department [address] [place] [address] Debbie Claros MD Seizure (HCC) (Primary Dx) Discharge Disposition: Discharge to home or self care 08/27/2024 8:46 AM CDT - 08/27/2024 2:01 PM CDT Emergency [facility] Emergency Department [address] [place] [address] Generalized anxiety disorder with panic attacks (Primary Dx) Discharge Disposition: Discharge to home or self care from Last 3 Months Allergies Active Allergy Reactions Criticality Noted Date Comments Ketamine Agitation Medium 01/17/2024 Julian Hives,Swelling Medium 01/26/2023 Papaya Hives,Swelling Medium 01/26/2023 Penicillins Medications Laura, 28, 90-20 mcg (28) per tablet 01/08/2023 Active OXcarbazepine (TRILEPTAL) 300 mg tablet 1 tablet (300 mg total) 2 (two) times a day 01/26/2023 Active levETIRAcetam (KEPPRA) 750 mg tablet Take 2 tablets (1,500 mg total) by mouth 2 (two) times a day 120 tablet 01/26/2023 Active clonazePAM (KlonoPIN) 0.5 mg tablet Take 1 tablet (0.5 mg total) by mouth daily as needed 12/15/2023 Active sertraline (ZOLOFT) 100 mg tablet Take 2 tablets (200 mg total) by mouth daily 01/12/2024 Active guanFACINE (TENEX) 2 mg tablet Take 1 tablet (2 mg total) by mouth nightly Active levETIRAcetam (KEPPRA) 500 mg tablet Take 2 tablets (1,000 mg total) by mouth 2 (two) times a day 240 tablet 09/07/2024 Active Active Problems Problem Noted Date Diagnosed Date Anxiety 05/15/2023 Hypokalemia 05/15/2023 Hypomagnesemia 05/15/2023 Pneumonia 05/15/2023 Sepsis 05/15/2023 Primary spontaneous pneumothorax 05/04/2023 Epilepsy 11/26/2016 Epilepsy 06/26/2014 Overview (07/17/2017): Description: Patient reports [...] Types Packs/Day Years Used Date Smoking Tobacco: Unknown Tobacco Cessation:Counseling Given: Not Answered Personal Safety Answer Date Recorded Have you ever been in or are you currently in a harmful physical or emotional relationship or is someone making you feel afraid or unsafe? Denies 09/07/2024 Comments No Sex and Gender Information Value Date Recorded Sex Assigned at Not on file Legal Sex Female 6:37 AM PASTE THINNER Gender Identity Not on file Sexual Orientation Not on file Last Filed Vital Signs Vital Sign Reading Time Taken Comments Blood Pressure 95/60 09/07/2024 1:45 PM CDT Pulse 76 09/07/2024 1:45 PM CDT Temperature 36.2 C (97.1 F) 09/07/2024 10:11 AM CDT Respiratory Rate 19 09/07/2024 1:45 PM CDT Oxygen Saturation 98% 09/07/2024 1:45 PM CDT Inhaled Oxygen Concentration - - Weight 61.2 kg (135 lb) 09/07/2024 10:11 AM CDT Height 165.1 cm (5' 5) 09/07/2024 10:11 AM CDT Body Mass Index 22.47 09/07/2024 10:11 AM CDT Plan of Treatment Not on file Procedures Procedure Name Priority Date/Time Associated Diagnosis Comments URINALYSIS, MICROSCOPIC ONLY STAT 09/07/2024 11:41 AM CDT URINALYSIS AND REFLEX TO MICROSCOPIC AND CULTURE STAT 09/07/2024 11:41 AM CDT EGFR STAT 09/07/2024 11:02 AM CDT DIFFERENTIAL AUTO STAT 09/07/2024 11: 02 AM CDT TROPONIN T HIGH-SENSITIVITY SERIES (BASELINE, 2HR, 4HR, 6HR) STAT 09/07/2024 11:02 AM CDT CBC WITH AUTO DIFFERENTIAL STAT 09/07/2024 11:02 AM CDT COMPREHENSIVE METABOLIC PANEL STAT 09/07/2024 11:02 AM CDT ECG 12-LEAD STAT 09/07/2024 10:44 AM CDT EGFR STAT 08/27/2024 10:56 AM CDT THYROID FUNCTION CASCADE STAT 08/27/2024 10:56 AM CDT COMPREHENSIVE METABOLIC PANEL STAT 08/27/2024 10:56 AM CDT HCG, BLOOD, QUANTITATIVE STAT 08/27/2024 10:56 AM CDT ETHANOL STAT 08/27/2024 10:56 AM CDT TROPONIN T HIGH-SENSITIVITY SERIES (BASELINE, 2HR, 4HR, 6HR) STAT 08/27/2024 10:56 AM CDT URINALYSIS, MICROSCOPIC ONLY STAT 08/27/2024 10:05 AM CDT DRUGS OF ABUSE SCREEN, URINE WITHOUT CONFIRMATION STAT 08/27/2024 10:05 AM CDT URINALYSIS AND REFLEX TO MICROSCOPIC AND CULTURE STAT 08/27/2024 10:05 AM CDT ECG 12-LEAD STAT 08/27/2024 9:43 AM CDT EGFR STAT 08/27/2024 9:30 AM CDT DIFFERENTIAL AUTO STAT 08/27/2024 9:3 0 AM CDT HCG, BLOOD, QUANTITATIVE STAT 08/27/2024 9:30 AM CDT THYROID FUNCTION CASCADE STAT 08/27/2024 9:30 AM CDT ETHANOL STAT 08/27/2024 9:30 AM CDT COMPREHENSIVE METABOLIC PANEL STAT 08/27/2024 9:30 AM CDT CBC WITH AUTO DIFFERENTIAL STAT 08/27/2024 9:30 AM CDT SERUM HEPATITIS C AB Routine 05/31/2014 9:48 AM PASTE THINNER from Last 3 Months or Most Recently Relevant to Health Maintenance Results * (ABNORMAL) Urinalysis reflex to microscopic and culture Urine (09/07/2024 11:41 AM CDT) Color, ur Yellow Yellow Clarity, ur Turbid(A) Clear [facility] ([place]) Specific gravity, ur 1.018 1.003 - 1.030 [facility] ([place]) pH, urine 8.0 [facility] ([place]) Comment: Interpretive Data U rine pH is affected by diet, medications, systemic acid-base disturbances, and renal tubular function. pH may affect urinary stone formation. For example, urine pH below 6.0 may help reduce the tendency for calcium phosphate stones and pH greater than 6.0 may reduce the tendency for uric acid stone formation. Source: [facility] Current Interpretive Data was last revised on 2017 Protein, ur ql Trace Negative [facility] ([place]) Glucose, ur ql Negative Negative [facility] ([place]) Ketones, ur Negative Negative [facility] ([place]) Bilirubin, ur Negative Negative [facility] ([place]) Blood, ur 2+(A) Negative [facility] ([place]) Urobilinogen, ur <2.0 <2.0 mg/dL [facility] ([place]) Nitrite, ur Negative Negative [facility] ([place]) Leukocyte esterase, ur 1+(A) Negative [facility] ([place]) UA reflex comment Reflex to microscopic UA will be performed. [facility] ([place]) Urine 09/07/2024 11:4 1 AM CDT 09/07/2024 11:44 AM CDT Debbie Claros MD LAB MICROBIOLOGY - GENERA L ORDERABLES Final Result [facility] ([place]) 1 [facility] Department [place] [address] * (ABNORMAL) Urinalysis, microscopic only (09/07/2024 11:41 AM CDT) WBC, ur 0-5 0 - 5 /HPF RBC, ur 0-2 0 - 2 /HPF [facility] ([place]) Epithelial cells, squamous, ur 6-10(A) 0 - 5 /HPF [facility] ([place]) Mucous, ur Present(A) [facility] ([facility]) Culture Reflex Comment Reflex conditions for urine culture (WBC >10) not met. [facility] ([place]) Urine 09/07/2024 11:4 1 AM CDT 09/07/2024 11:44 AM CDT Debbie Claros MD LAB URINE ORDERABLES Priscila l Result [facility] [place]) 1 [facility] [place] [address] * Troponin T high-sensitivity series (baseline, 2hr, 4hr, 6hr) (09/07/2024 11:02 AM CDT) Pathologist [facility] Trop T hs <6 <=14 ng/L Comment: Interpretive Data For further hscTnT resources including the diagnostic algorithm and an aid in interpretation, copy and paste this link: https://nrl.testcatalog.org/show/hsTrop Current Interpretive Data last revised 2020. Blood 09/07/2024 11:0 2 AM CDT 09/07/2024 11:05 AM CDT Debbie Claros MD LAB BLOOD ORDERABLES Priscila l Result Performing Organization Address City/[facility]/ZIP Co de Phone Number STAN PAGE MARY) 1 [facility] [place] [address] * eGFR (09/07/2024 11:02 AM CDT) [facility] eGFR >90 >=60 mL/min/1. 73 m2 Comment: Interpretive Data Reference Interval Normal >/= 90 mL/min/1.73m2 Mildly decreased* 60 - 89 mL/min/1.73m2 Mildly to moderately decreased 45 - 59 mL/min/1.73m2 Moderately to severely decreased 30 - 44 mL/min/1.73m2 Severely decreased 15 - 29 mL/min/1.73m2 Kidney Failure < 15 mL/min/1.73m2 *Relative to young adult level Estimated glomerular filtration rate is determined by the 2020 CKD-EPI equation recommended by the National Kidney Foundation (A Unifying Approach to GFR Estimation: Recommendations of the NKF-ASK Task Force on Reassessing the Inclusion of Race in Diagnosing Kidney Disease, JASN 2020). The CKD-EPI equation should not be used for patients with unstable renal function and has not been validated in children and those over 70. Current interpretive data was last reviewed 2021. Blood 09/07/2024 11:0 2 AM CDT 09/07/2024 11:05 AM CDT Debbie Claros MD LAB BLOOD ORDERABLES Priscila alcantara Result [facility] ([place]) 1 [facility] Department [place] [address] * (ABNORMAL) Differential, auto (09/07/2024 11:02 AM CDT) Neutrophil abs 7.67(H) 1.50 - 6.50 K/cumm Imm gran abs 0.05 0.00 - 0.10 K/cumm [facility] ([place]) Lymphocyte abs 0.82 0.80 - 3.30 K/cumm [facility] ([place]) Monocyte abs 0.52 0.20 - 0.80 K/cumm [facility] ([place]) Eosinophil abs 0.04 0.00 - 0.50 K/cumm [facility] ([place]) Basophil abs 0.01 0.00 - 0.10 K/cumm [facility] ([place]) Neutrophil pct 84.3 % [facility] ([place]) Comment: Interpretive Data Percent cell count reference ranges are not reported, since discordance with absolute values may lead to misinterpretation of CBC data. Current Interpretive Data was last revised on 2017. Imm gran pct 0.5 % [facility] ([place]) Comment: Interpretive Data Percent cell count reference ranges are not reported, since discordance with absolute values may lead to misinterpretation of CBC data. Current Interpretive Data was last revised on 2017. Lymphocyte pct 9.0 % [facility] ([place]) Comment: Interpretive Data Percent cell count reference ranges are not reported, since discordance with absolute values may lead to misinterpretation of CBC data. Current Interpretive Data was last revised on 2017. Monocyte pct 5.7 % [facility] ([place]) Comment: Interpretive Data Percent cell count reference ranges are not reported, since discordance with absolute values may lead to misinterpretation of CBC data. Current Interpretive Data was last revised on 2017. Eosinophil pct 0.4 % [facility] ([place]) Comment: Interpretive Data Percent cell count reference ranges are not reported, since discordance with absolute values may lead to misinterpretation of CBC data. Current Interpretive Data was last revised on 2017. Basophil pct 0.1 % [facility] ([place]) Comment: Interpretive Data Percent cell count reference ranges are not reported, since discordance with absolute values may lead to misinterpretation of CBC data. Current Interpretive Data was last revised on 2017. Blood 09/07/2024 11:0 2 AM CDT 09/07/2024 11:05 AM CDT Debbie Claros MD LAB BLOOD ORDERABLES Priscila l Result [facility] ([place]) 1 [facility] Department [place] [address] * (ABNORMAL) CBC with auto differential (09/07/2024 11:02 AM CDT) WBC 9.11 3.80 - 9.90 K/cumm Hgb 13.8 11.9 - 15.5 g/dL [facility] ([place]) Hct 41.3 35.6 - 45.5 % [facility] ([place]) Plt 207 150 - 400 K/cumm [facility] ([place]) MPV 11.3 9.1 - 12.3 fL [facility] ([place]) RBC 4.01 3.90 - 5.20 M/cumm [facility] ([place]) MCV 103.0(H) 81.3 - 96.4 fL [facility] ([place]) MCH 34.4(H) 27.1 - 33.3 pg [facility] ([place]) MCHC 33.4 32.3 - 35.7 g/dL [facility] ([place]) RDW CV 13.2 11.1 - 14.9 % [facility] ([place]) RDW SD 50.4(H) 35.7 - 48.1 fL [facility] ([place]) NRBC abs 0.00 0.00 - 0.01 K/cumm [facility] Blood 09/07/2024 11:0 2 AM CDT 09/07/2024 11:05 AM CDT us Debbie Claros MD LAB BLOOD ORDERABLES Priscila alcantara Result [facility] ([place]) 1 [facility] Department [place] [address] * (ABNORMAL) Comprehensive metabolic panel (09/07/2024 11:02 AM CDT) Sodium 138 135 - 145 mmol/L Potassium, pl 4.2 3.3 - 4.9 mmol/L [facility] ([place]) Chloride 103 97 - 110 mmol/L [facility] ([place]) CO2 21(L) 22 - 32 mmol/L [facility] ([place]) Anion gap 14 2 - 15 mmol/L [facility] ([place]) BUN 4(L) 6 - 25 mg/dL [facility] ([place]) Creatinine 0.60 0.60 - 1.10 mg/dL [facility] ([place]) Glucose 87 70 - 199 mg/dL [facility] ([place]) Comment: Interpretive Data Fasting glucose >/= 126 mg/dl is diagnostic for diabetes. Fasting is defined as no caloric intake for at least 8 hours. Fasting glucose between 100 mg/dl to 125 mg/dl is diagnostic of prediabetes. In a patient with classic symptoms of hyperglycemia or hyperglycemic crisis, a random glucose >/= 200 mg/dl is diagnostic for diabetes. In the absence of unequivocal hyperglycemia, results should be confirmed by repeat testing. The classification and Diagnosis of Diabetes Diabetes Care 2021; 46: S19-S40. Current interpretive data was last revised 2022. Calcium 9.0 8.5 - 10.3 mg/dL [facility] ([place]) Bilirubin, total <0.2 0.1 - 1.2 mg/dL [facility] ([place]) Protein, pl 6.9 6.5 - 8.5 g/dL [facility] ([place]) Albumin 3.9 3.5 - 5.0 g/dL [facility] ([place]) Alk phos 88 40 - 130 Units/L [facility] ([place]) ALT 6(L) 7 - 45 Units/L [facility] ([place]) AST 13 10 - 45 Units/L [facility] ([place]) Blood 09/07/2024 11:0 2 AM CDT 09/07/2024 11:05 AM CDT Debbie Claros MD LAB BLOOD ORDERABLES Priscila l Result Performing Organization Address City/[facility] Co de Phone Number [facility] ([place]) 1 [facility] Department [place] [address] * ECG 12 lead (09/07/2024 10:44 AM CDT) 09/07/2024 10:4 4 AM CDT Narrative [facility] - 09/07/2024 4:49 PM CDT Vent Rate: 60 bpm RR Interval: 996 msec NM Interval: 119 msec QRS Duration: 72 msec QT Interval: 423 msec QTC Interval: 423 msec P-R-T [place]: 64 - 49 - -64 degrees IMPRESSION: SINUS RHYTHM WITH SHORT NM INTERVAL POSSIBLE LEFT ATRIAL ENLARGEMENT [-0.1mV P-WAVE IN V1/V2] MODERATE T-WAVE ABNORMALITY, CONSIDER INFERIOR and lateral ISCHEMIA [-0.1+ mV T-WAVE IN II/aVF] ABNORMAL ECG Compared to prior EKG, T -wave inversions are less evident Electronically Signed By: Aroldo Bland MD Debbie Claros MD ECG ORDERABLES Final Res ult Performing Organization Address [facility]/ZIP Co de Phone Number [facility] [employer] [facility] * Troponin T high-sensitivity series (baseline, 2hr, 4hr, 6hr) (08/27/2024 10:56 AM CDT) Trop T hs <6 <=14 ng/L Comment: Interpretive Data For further hscTnT resources including the diagnostic algorithm and an aid in interpretation, copy and paste this link: https://nrl.testcatalog.org/show/hsTrop Current Interpretive Data last revised 2020. Blood 08/27/2024 10:5 6 AM CDT 08/27/2024 10:58 AM CDT us Zia Guajardo Files [employer] DRIVER TRUCK DRIVER LAB BLOOD ORDERABLES Final Re sult Performing Organization Address [facility] de Phone Number [facility] [address] [place] [address] * eGFR (08/27/2024 10:56 AM CDT) eGFR >90 >=60 mL/min/1. 73 m2 Comment: Interpretive Data Reference Interval Normal >/= 90 mL/min/1.73m2 Mildly decreased* 60 - 89 mL/min/1.73m2 Mildly to moderately decreased 45 - 59 mL/min/1.73m2 Moderately to severely decreased 30 - 44 mL/min/1.73m2 Severely decreased 15 - 29 mL/min/1.73m2 Kidney Failure < 15 mL/min/1.73m2 *Relative to young adult level Estimated glomerular filtration rate is determined by the 2020 CKD-EPI equation recommended by the National Kidney Foundation (A Unifying Approach to GFR Estimation: Recommendations of the NKF-ASK Task Force on Reassessing the Inclusion of Race in Diagnosing Kidney Disease, JASN 2020). The CKD-EPI equation should not be used for patients with unstable renal function and has not been validated in children and those over 70. Current interpretive data was last reviewed 2021. Blood 08/27/2024 10:5 6 AM CDT 08/27/2024 10:58 AM CDT us Zia Guajardo Files [employer] DRIVER TRUCK DRIVER LAB BLOOD ORDERABLES Final Re sult Performing Organization Address [facility] Co de Phone Number [facility] [address] [place] [address] * Thyroid Function [place] (08/27/2024 10:56 AM CDT) TSH 0.43 0.30 - 4.20 mcIUnit/mL Blood 08/27/2024 10:5 6 AM CDT 08/27/2024 10:58 AM CDT Zia Mccain. Files [employer] DRIVER TRUCK DRIVER LAB BLOOD ORDERABLES Final Re sult Performing Organization Address [facility] Co de Phone Number [address] [address] * hCG, blood, quantitative (08/27/2024 10:56 AM CDT) hCG, quant <1.0 0.0 - 5.0 IUnits/L Comment: Interpretive Data Male: < 5 IU/L Non- premenopausal Female: <5 IU/L The Laura hCG Beta Quant assay procedure was used. Results from different manufacturers or methods may not be comparable. Serial testing should be performed using the same method. Interpretive Data was last revised on 2023 Blood Venous blood specimen / Unknown 08/27/2024 10:56 AM CDT 08/27/2024 10:58 AM CDT Zia Mccain. Files [employer] DRIVER TRUCK DRIVER LAB BLOOD ORDERABLES Final Re sult Performing Organization Address [facility] de Phone Number [address] [address] * Ethanol (08/27/2024 10:56 AM CDT) Pathologist [facility] Ethanol <10 <=10 mg/dL Comment: Interpretive Data Legal limit of intoxication > or = 80 mg/dL Levels > or = 400 mg/dL are potentially TOXIC. Current interpretive data was last revised on 2018. Blood 08/27/2024 10:5 6 AM CDT 08/27/2024 10:58 AM CDT Zia D. Files [employer]YCL[employer]KL[employer] DRIVER TRUCK DRIVER LAB BLOOD ORDERABLES Final Re sult Performing Organization Address City/[facility] Co de Phone Number [address] [address] * (ABNORMAL) Comprehensive metabolic panel (08/27/2024 10:56 AM CDT) Sodium 135 135 - 145 mmol/L Potassium, pl 3.3 3.3 - 4.9 mmol/L [facility] Chloride 101 97 - 110 mmol/L [facility] CO2 20(L) 22 - 32 mmol/L [facility] Anion gap 14 2 - 15 mmol/L [facility] BUN 9 6 - 25 mg/dL [facility] Creatinine 0.52(L) 0.60 - 1.10 mg/dL [facility] Glucose 102 70 - 199 mg/dL [facility] Comment: Interpretive Data Fasting glucose >/= 126 mg/dl is diagnostic for diabetes. Fasting is defined as no caloric intake for at least 8 hours. Fasting glucose between 100 mg/dl to 125 mg/dl is diagnostic of prediabetes. In a patient with classic symptoms of hyperglycemia or hyperglycemic crisis, a random glucose >/= 200 mg/dl is diagnostic for diabetes. In the absence of unequivocal hyperglycemia, results should be confirmed by repeat testing. The classification and Diagnosis of Diabetes Diabetes Care 202; 46: S19-S40. Current interpretive data was last revised 2022. Calcium 8.4(L) 8.5 - 10.3 mg/dL [facility] Bilirubin, total 0.5 0.1 - 1.2 mg/dL [facility] Protein, pl 6.8 6.5 - 8.5 g/dL [facility] Albumin 4.3 3.5 - 5.2 g/dL [facility] Alk phos 89 40 - 130 Units/L [facility] ALT 9 7 - 45 Units/L [facility] AST 22 10 - 45 Units/L [facility] Blood 08/27/2024 10:5 6 AM CDT 08/27/2024 10:58 AM CDT Zia Shrestha [employer] DRIVER TRUCK DRIVER LAB BLOOD ORDERABLES Final Re sult [facility] [address] [facility] Department [place] [address] * (ABNORMAL) Urinalysis reflex to microscopic and culture Urine (08/27/2024 10:05 AM CDT) Color, ur Yellow Yellow [facility] Clarity, ur Clear Clear [facility] Specific gravity, ur 1.026 1.003 - 1.030 [facility] pH, urine 8.5 [facility] Comment: Interpretive Data U rine pH is affected by diet, medications, systemic acid-base disturbances, and renal tubular function. pH may affect urinary stone formation. For example, urine pH below 6.0 may help reduce the tendency for calcium phosphate stones and pH greater than 6.0 may reduce the tendency for uric acid stone formation. Source: [facility] Current Interpretive Data was last revised on 2017 Protein, ur ql 1+(A) Negative [facility] Glucose, ur ql Trace(A) Negative [facility] Ketones, ur 4+(A) Negative [facility] Bilirubin, ur Negative Negative [facility] Blood, ur Negative Negative [facility] Urobilinogen, ur <2.0 <2.0 mg/dL [facility] Nitrite, ur Negative Negative [facility] Leukocyte esterase, ur Negative Negative [facility] UA reflex comment Reflex to microscopic UA will be performed. [facility] Urine 08/27/2024 10:0 5 AM CDT 08/27/2024 10:10 AM CDT Zia Shrestha [employer] DRIVER TRUCK DRIVER LAB MICROBIOLOGY - GENERAL OR DERABLES Final Result [facility] [address] [place] [address] * (ABNORMAL) Drugs of Abuse Screen, Urine without Confirmation (08/27/2024 10:05 AM CDT) Amphetamine, ur Not Detected CutOff 500ng/mL Comment: Interpretive Data - Amphetamines: Samples containing greater than 500 ng/mL d-methamphetamine or other cross-reacting amphetamine compounds are reported as positive. Amphetamine immunoassays are subject to significant false positive rates due to cross-reactivity of non-amphetamine drugs. Confirmatory testing required for definitive results. Current Interpretive Data was last reviewed 2022. Barbiturates, ur Not Detected CutOff 200ng/mL [facility] Comment: Interpretive Data - Barbiturates: Samples containing greater than 200 ng/mL secobarbital or other cross-reacting barbiturate compounds are reported as positive. False positive and false negative results are possible. Confirmatory testing required for definitive results. Current Interpretive Data was last reviewed 2022. Benzodiazepines, ur Not Detected CutOff 100ng/mL [facility] Comment: Interpretive Data - Benzodiazepines: Samples containing greater than 100 ng/mL nordiazepam or other cross-reacting compounds are reported as positive. False positive and false negative results are possible. Confirmatory testing required for definitive results. Current Interpretive Data was last reviewed 2022. Cannabinoids, ur Screen Positive, presumptive (A) CutOff 50 ng/mL [facility] Comment: Interpretive Data - Cannabinoids: Samples containing greater than 50 ng/mL delta-9 THC -COOH or other cross- reacting compounds are reported as positive. False positive and false negative results are possible. Confirmatory testing required for definitive results. Current Interpretive Data was last reviewed 2022. Cocaine, ur Not Detected CutOff 150ng/mL [facility] Comment: Interpretive Data - Cocaine: Samples containing greater than 150 ng/mL benzoylecgonine or other cross- reacting compounds are reported as positive. False positive and false negative results are possible. Confirmatory testing required for definitive results. Current Interpretive Data was last reviewed 2022. Fentanyl, Ur Not Detected CutOff 5 ng/mL [facility] Comment: Interpretive Data - Fentanyl: Samples containing greater than 5 ng/mL norfentanyl, fentanyl, or other cross-reacting fentanyl compounds are reported as positive. False positive and false negative results are possible. Confirmatory testing required for definitive results. Current Interpretive Data was last reviewed 2023. Methadone, ur Not Detected CutOff 300ng/mL [facility] Comment: Interpretive Data - Methadone: Samples containing greater than 300 ng/mL d,l-methadone or other cross-reacting compounds are reported as positive. False positive and false negative results are possible. Confirmatory testing required for definitive results. Current Interpretive Data was last reviewed 2022. Opiates, ur Not Detected CutOff 300ng/mL [facility] Comment: Interpretive Data - Opiates: Samples containing greater than 300 ng/mL morphine or other cross-reacting compounds are reported as positive. False positive and false negative results are possible. Confirmatory testing required for definitive results. Current Interpretive Data was last reviewed 2022. Oxycodone, ur Not Detected CutOff 100ng/mL [facility] Comment: Interpretive Data - Oxycodone: Samples containing greater than 100 ng/mL oxycodone or other cross-reacting compounds are reported as positive. False positive and false negative results are possible. Confirmatory testing required for definitive results. Current Interpretive Data was last reviewed 2022. Phencyclidine, ur Not Detected CutOff 25 ng/mL [facility] Comment: Interpretive Data - Phencyclidine: Samples containing greater than 25 ng/mL phencyclidine or other cross-reacting compounds are reported as positive. False positive and false negative results are possible. Confirmatory testing required for definitive results. Current Interpretive Data was last reviewed 2022. Urine Creatinine 124 mg/dL [facility] Comment: Interpretive Data Urine Creatinine: < 10 mg/dL is extremely dilute = or > 10 but < 20 mg/dL is dilute = or > 20 mg/dL is normal Current Interpretive Data was last revised on 2017. Urine 08/27/2024 10:0 5 AM CDT 08/27/2024 10:10 AM CDT Narrative [facility] - 08/27/2024 11:33 AM CDT Drug of Abuse screening is performed by immunoassay for medical purposes only. This is not to be used for Pain Management purposes. Zia Shrestha [employer] DRIVER LAB URINE ORDERABLES Final Re sult [facility] [address] Department [place] [address] * (ABNORMAL) Urinalysis, microscopic only (08/27/2024 10:05 AM CDT) WBC, ur 0-5 0 - 5 /HPF [facility] RBC, ur 6-10(A) 0 - 2 /HPF [facility] Epithelial cells, squamous, ur 11-20(A) 0 - 5 /HPF [facility] Bacteria, ur Trace(A) [facility] Mucous, ur Present(A) [facility] Culture Reflex Comment Reflex conditions for urine culture (WBC >10) not met. [facility] Urine 08/27/2024 10:0 5 AM CDT 08/27/2024 10:10 AM CDT Zia DAna Files [employer] DRIVER LAB URINE ORDERABLES Final Re sult Performing Organization Address City/[facility] Co de Phone Number [facility] [address] [place] [address] * ECG 12 lead (08/27/2024 9:43 AM CDT) 08/27/2024 9:43 AM CDT Narrative [facility] - 08/27/2024 9:55 AM CDT Vent Rate: 82 bpm RR Interval: 729 msec NM Interval: 132 msec QRS Duration: 76 msec QT Interval: 438 msec QTC Interval: 476 msec P-R-T [place]: 83 - 67 - 265 degrees IMPRESSION: SINUS RHYTHM POSSIBLE LEFT ATRIAL ENLARGEMENT ST DEVIATION AND MODERATE T-WAVE ABNORMALITY, CONSIDER ANTEROLATERAL ISCHEMIA ST DEVIATION AND MODERATE T-WAVE ABNORMALITY, CONSIDER INFERIOR ISCHEMIA ABNORMAL ECG Electronically Signed By: Asuncion Kruse MD Zia Guajardo Files [employer] DR[employer] TRUCK DRIVER ECG ORDERABLES Final Result Performing Organization Address [facility] Co de Phone Number [facility] * eGFR (08/27/2024 9:30 AM CDT) eGFR See Comment >=60 Comment: See new accession number. Interpretive Data Reference Interval Normal >/= 90 mL/min/1.73m2 Mildly decreased* 60 - 89 mL/min/1.73m2 Mildly to moderately decreased 45 - 59 mL/min/1.73m2 Moderately to severely decreased 30 - 44 mL/min/1.73m2 Severely decreased 15 - 29 mL/min/1.73m2 Kidney Failure < 15 mL/min/1.73m2 *Relative to young adult level Estimated glomerular filtration rate is determined by the 2020 CKD-EPI equation recommended by the National Kid[employer] (A Unifying Approach to GFR Estimation: Recommendations of the NKF-ASK Task Force on Reassessing the Inclusion of Race in Diagnosing Kidney Disease, YOAVSSal 2020). The CKD-EPI equation should not be used for patients with unstable renal function and has not been validated in children and those over 70. Current interpretive data was last reviewed 2021. Blood 08/27/2024 9:30 AM CDT 08/27/2024 10:11 AM CDT Zia Shrestha [employer] TR[employer] DRIVER LAB BLOOD ORDERABLES Final Re sult [facility] [address] Department [place] [address] * (ABNORMAL) Differential, auto (08/27/2024 9:30 AM CDT) Neutrophil abs 11.65(H) 1.50 - 6.50 K/cumm Imm gran abs 0.04 0.00 - 0.10 K/cumm [facility] Lymphocyte abs 0.47(L) 0.80 - 3.30 K/cumm [facility] Monocyte abs 0.41 0.20 - 0.80 K/cumm [facility] Eosinophil abs 0.02 0.00 - 0.50 K/cumm [facility] Basophil abs 0.01 0.00 - 0.10 K/cumm [facility] Neutrophil pct 92.4 % [facility] Comment: Interpretive Data Percent cell count reference ranges are not reported, since discordance with absolute values may lead to misinterpretation of CBC data. Current Interpretive Data was last revised on 2017. Imm gran pct 0.3 % [facility] Comment: Interpretive Data Percent cell count reference ranges are not reported, since discordance with absolute values may lead to misinterpretation of CBC data. Current Interpretive Data was last revised on 2017. Lymphocyte pct 3.7 % [facility] Comment: Interpretive Data Percent cell count reference ranges are not reported, since discordance with absolute values may lead to misinterpretation of CBC data. Current Interpretive Data was last revised on 2017. Monocyte pct 3.3 % [facility] Comment: Interpretive Data Percent cell count reference ranges are not reported, since discordance with absolute values may lead to misinterpretation of CBC data. Current Interpretive Data was last revised on 2017. Eosinophil pct 0.2 % [facility] Comment: Interpretive Data Percent cell count reference ranges are not reported, since discordance with absolute values may lead to misinterpretation of CBC data. Current Interpretive Data was last revised on 2017. Basophil pct 0.1 % [facility] Comment: Interpretive Data Percent cell count reference ranges are not reported, since discordance with absolute values may lead to misinterpretation of CBC data. Current Interpretive Data was last revised on 2017. Blood 08/27/2024 9:30 AM CDT 08/27/2024 10:11 AM CDT Zia Mccain. Files [employer] TR[employer] DRIVER LAB BLOOD ORDERABLES Final Re sult Performing Organization Address [facility] Co de Phone Number [phone] [place] [address] * Thyroid Function [place] (08/27/2024 9:30 AM CDT) Pathologist [facility] TSH See Comment 0.30 - 4.20 mcIUnit/m L Comment:See new accession nu mber. Blood 08/27/2024 9:30 AM CDT 08/27/2024 10:11 AM CDT Zia Mccain. Files [employer] TR[employer] DRIVER LAB BLOOD ORDERABLES Final Re sult Performing Organization Address [facility] Co de Phone Number [phone] [place] [address] * (ABNORMAL) CBC with auto differential (08/27/2024 9:30 AM CDT) Pathologist [facility] WBC 12.60(H) 3.80 - 9.90 K/cumm Hgb 13.9 11.9 - 15.5 g/dL [facility] Hct 40.9 35.6 - 45.5 % [facility] Plt 212 150 - 400 K/cumm [facility] MPV 11.9 9.1 - 12.3 fL [facility] RBC 4.09 3.90 - 5.20 M/cumm [facility] MCV 100.0(H) 81.3 - 96.4 fL [facility] MCH 34.0(H) 27.1 - 33.3 pg [facility] MCHC 34.0 32.3 - 35.7 g/dL [facility] RDW CV 12.7 11.1 - 14.9 % [facility] RDW SD 47.0 35.7 - 48.1 fL [facility] NRBC abs 0.00 0.00 - 0.01 K/cumm [facility] Blood 08/27/2024 9:30 AM CDT 08/27/2024 10:11 AM CDT Zia D. Files [employer] TR[employer] DRIVER LAB BLOOD ORDERABLES Final Re sult Performing Organization Address [facility] Co de Phone Number [address] [address] * hCG, blood, quantitative (08/27/2024 9:30 AM CDT) hCG, quant See Comment 0.0 - 5.0 IUnits/L Comment: See new accession number. Interpretive Data Male: < 5 IU/L Non- premenopausal Female: <5 IU/L The Laura hCG Beta Quant assay procedure was used. Results from different manufacturers or methods may not be comparable. Serial testing should be performed using the same method. Interpretive Data was last revised on 2023 Blood Venous blood specimen / Unknown 08/27/2024 9:30 AM CDT 08/27/2024 10:11 AM CDT Zia D. Files [employer] DRIVER TRUCK DRIVER LAB BLOOD ORDERABLES Final Re sult Performing Organization Address [facility]/ZIP Co de Phone Number [address] [address] * Ethanol (08/27/2024 9:30 AM CDT) Ethanol See Comment <=10 mg/dL Comment: See new accession number. Interpretive Data Legal limit of intoxication > or = 80 mg/dL Levels > or = 400 mg/dL are potentially TOXIC. Current interpretive data was last revised on 2018. Blood 08/27/2024 9:30 AM CDT 08/27/2024 10:11 AM CDT us Zia Shrestha [employer] TR[employer] DRIVER LAB BLOOD ORDERABLES Final Re sult [facility] [address] [facility] [place] [address] * Comprehensive metabolic panel (08/27/2024 9:30 AM CDT) Sodium See Comment 135 - 145 mmol/L Comment:See new accession nu mber. Potassium, pl See Comment 3.3 - 4.9 mmol/L [facility] Comment:See new accession nu mber. Chloride See Comment 97 - 110 mmol/L [facility] Comment:See new accession nu mber. CO2 See Comment 22 - 32 mmol/L [facility] Comment:See new accession nu mber. Anion gap See Comment 2 - 15 [facility] Comment:See new accession nu mber. BUN See Comment 6 - 25 mg/dL [facility] Comment:See new accession nu mber. Creatinine See Comment 0.60 - 1.10 mg/dL [facility] Comment:See new accession nu mber. Glucose See Comment 70 - 199 mg/dL [facility] Comment: See new accession number. Interpretive Data Fasting glucose >/= 126 mg/dl is diagnostic for diabetes. Fasting is defined as no caloric intake for at least 8 hours. Fasting glucose between 100 mg/dl to 125 mg/dl is diagnostic of prediabetes. In a patient with classic symptoms of hyperglycemia or hyperglycemic crisis, a random glucose >/= 200 mg/dl is diagnostic for diabetes. In the absence of unequivocal hyperglycemia, results should be confirmed by repeat testing. The classification and Diagnosis of Diabetes Diabetes Care 2021; 46: S19-S40. Current interpretive data was last revised 2022. Calcium See Comment 8.5 - 10.3 mg/dL [facility] Comment:See new accession nu mber. Bilirubin, total See Comment 0.1 - 1.2 mg/dL [facility] Comment:See new accession nu mber. Protein, pl See Comment 6.5 - 8.5 g/dL [facility] Comment:See new accession nu mber. Albumin See Comment 3.5 - 5.2 g/dL [facility] Comment:See new accession nu mber. Alk phos See Comment 40 - 130 Units/L [facility] Comment:See new accession nu mber. ALT See Comment 7 - 45 Units/L [facility] Comment:See new accession nu mber. AST See Comment 10 - 45 Units/L [facility] Comment:See new accession nu mber. Blood 08/27/2024 9:30 AM CDT 08/27/2024 10:11 AM CDT Zia Shrestha NP LAB BLOOD ORDERABLES Final Re sult [facility] [address] [facility] [place] [address] * Serum Hepatitis C ab (05/31/2014 9:48 AM PASTE [employer]INNER) HCV ab Negative NEG HISTORICAL RESULTS Serum 05/31/2014 9:48 AM PASTE [employer]INNER Narrative HISTORICAL RESULTS - 06/01/2014 3:57 AM PASTE [employer]INNER Interpretive Data If confirmation is required, call Laboratory Customer Service to request sample to be sent to [facility] for Hepatitis C Virus (HCV) RNA Detection and Quantitation by Real-Time Reverse Adult Neurologist-PCR (RT-PCR). Current interpretive data was last revised on 2011 Adam Dean MD LAB BLOOD ORDERABLES Final Res ult HISTORICAL RESULTS from Last 3 Months or Most Recently Relevant to Health Maintenance Insurance Care Teams Daylight Driller Relationship Specialty Start Date End Date Chandan Bradley MD [address] [place] [address] PCP - General Psychiatry 08/27/24
--- OUTSIDE RECORDS SUMMARY | 2024-09-10 13:41 | XMS_ITS | CONTINUITY OF CARE DOCUMENT ---
Author Name tadeojazz neo Address Unknown Organization [facility] Address [id number] [place] [address] [address] [place] [address] Phone [phone] Care Team Providers Care Quality Technician [employer] Name Role Phone Rajendra JOHNSTON, Deb Unavailable COSMO JOHNSTON, MERLENE Unavailable [phone] INSURANCE PROVIDERS Payer name Policy type / Coverage type Rachelle red republican [employer] [employer] Medicaid 0 [id number]
--- OUTSIDE RECORDS SUMMARY | 2024-09-10 13:41 | XMS_ITS | Clinical Summary ---
Author Organization [facility] Address [address] [place] [address] Care Team Providers Care Welding Pantograph Machine Operator Name Role Phone Chandan Bradley MD Primary Care Provider [phone] Allergies Active Allergy Reactions Criticality Noted Date [...] CDT - 09/07/2024 2:03 PM CDT Emergency [facility] Emergency Department [address] [place] [address] Debbie Claros MD Seizure (HCC) (Primary Dx) Discharge Disposition: Discharge to home or self care 08/27/2024 8:46 AM CDT - 08/27/2024 2:01 PM CDT Emergency [facility] Emergency Department [address] [place] [address] Generalized anxiety disorder with panic attacks (Primary Dx) Discharge Disposition: Discharge to home or self care from Last 3 Months Medical History Medical History Date Comments Seizure (HCC) Anxiety Depression Social History Tobacco Use Types Packs/Day Years [...] on file 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 Gender Identity Not on file Sexual Orientation [...] 09/07/2024 10:11 AM CDT Plan of Treatment Health Maintenance Due Date Last Done Comments Cervical Cancer Screening 1989 Depression Screening 1989 Varicella Vaccines (1 of 2 - 13+ 2-dose series) 2002 Regular Well Visit/Exam 18-64 2007 Influenza Vaccine (Season Ended) 2024 03/17/2019, 01/28/2017 DTaP/Tdap/Td Vaccine (2 - Td or Tdap) 03/18/2027 03/18/2017 Hepatitis C Screening Completed 05/31/2014 Hepatitis B Screening Completed 09/23/2023 , 05/21/2023, 03/20/2023 HPV Vaccines Aged Out No longer eligi [...] HEPATITIS C AB Routine 05/31/2014 9:48 AM ADULT LITERACY TEACHER from Last 3 Months or Most Recently Relevant to Health Maintenance Results * (ABNORMAL) Urinalysis reflex to microscopic and culture Urine (09/07/2024 11:41 AM CDT) Color, ur Yellow Yellow Clarity, ur Turbid(A) Clear [facility] ([place]) Specific gravity, ur 1.018 1.003 - 1.030 [facility] ([place]) pH, urine 8.0 [facility] ([place]) Comment: Interpretive Data U rine pH is affected by diet, medications, systemic acid-base disturbances, and renal tubular function. pH may affect urinary stone formation. For example, urine pH below 6.0 may help reduce the tendency for calcium phosphate stones and pH greater than 6.0 may reduce the tendency for uric acid stone formation. Source: [facility] [employer] Current Interpretive Data was last revised on [...] Reflex to microscopic UA will be performed. [facility] ([place]) Urine 09/07/2024 11:4 1 AM CDT 09/07/2024 11:44 AM CDT us Debbie Claros MD LAB MICROBIOLOGY - GENERA L ORDERABLES Final Result [facility] ([place]) 1 [facility] [place] [address] * (ABNORMAL) Urinalysis, microscopic only (09/07/2024 11:41 AM CDT) Pathologist [facility] WBC, ur 0-5 0 - 5 /HPF RBC, ur 0-2 0 - 2 /HPF [facility] ([place]) Epithelial cells, squamous, ur 6-10(A) 0 - 5 /HPF [facility] ([place]) Mucous, ur Present(A) [facility] A ([place]) Culture Reflex Comment Reflex conditions for urine culture (WBC >10) not met. [facility] ([place]) Urine 09/07/2024 11:4 1 AM CDT 09/07/2024 11:44 AM CDT Debbie Claros MD LAB URINE ORDERABLES Priscila l Result Performing Organization Address City/[facility]/ZIP Co de Phone Number [facility] ([place]) [address] [place] [id number] * Troponin T high-sensitivity series (baseline, 2hr, 4hr, 6hr) (09/07/2024 11:02 AM CDT) [facility] Trop T hs <6 <=14 ng/L Comment: Interpretive Data For further hscTnT resources including the diagnostic algorithm and an aid in interpretation, copy and paste this link: https://nrl.testcatalog.org/show/hsTrop Current Interpretive Data last revised 2020. Blood 09/07/2024 11:0 2 AM CDT 09/07/2024 11:05 AM CDT Debbie Claros MD LAB BLOOD ORDERABLES Priscila l Result [facility] ([place]) 1 [facility] [place] [address] * eGFR (09/07/2024 11:02 AM CDT) [facility] eGFR >90 >=60 mL/min/1. 73 m2 [...] MD LAB BLOOD ORDERABLES Priscila l Result [facility] ([place]) 1 [facility] Department [place] [address] * (ABNORMAL) Differential, auto (09/07/2024 11:02 AM CDT) Neutrophil abs 7.67(H) 1.50 - 6.50 K/cumm Imm gran abs 0.05 0.00 - 0.10 K/cumm [facility] ([place]) Lymphocyte abs 0.82 0.80 - 3.30 K/cumm [facility] ([place]) Monocyte abs 0.52 0.20 - 0.80 K/cumm [...] revised on 2017. Monocyte pct 5.7 % [facility] ([place]) Comment: Interpretive Data Percent cell [...] revised on 2017. Basophil pct 0.1 % [facility] ([place]) Comment: Interpretive Data Percent cell count reference ranges are not reported, since discordance with absolute values may lead to misinterpretation of CBC data. Current Interpretive Data was last revised on 2017. Blood 09/07/2024 11:0 2 AM CDT 09/07/2024 11:05 AM CDT Debbie Claros MD LAB BLOOD ORDERABLES Priscila alcantara Result [facility] ([place]) 1 [facility] [place] [address] * (ABNORMAL) CBC with auto differential (09/07/2024 11:02 AM CDT) WBC 9.11 3.80 - 9.90 K/cumm Hgb 13.8 11.9 - 15.5 g/dL [facility] ([place]) Hct 41.3 35.6 - 45.5 % [...] NRBC abs 0.00 0.00 - 0.01 K/cumm [facility] Blood 09/07/2024 11:0 2 AM CDT 09/07/2024 11:05 AM CDT us Debbie Claros MD LAB BLOOD ORDERABLES Priscila alcantara Result [facility] 1 [facility] [place] [address] * (ABNORMAL) Comprehensive metabolic panel (09/07/2024 11:02 AM CDT) Sodium 138 135 - 145 mmol/L Potassium, pl 4.2 3.3 - 4.9 mmol/L [facility] ([place] Chloride 103 97 - 110 mmol/L [facility] CO2 21(L) 22 - 32 mmol/L [facility] ([place]) Anion gap 14 2 - 15 mmol/L [facility] BUN 4(L) 6 - 25 mg/dL [facility] ([place]) Creatinine 0.60 0.60 - 1.10 mg/dL [facility] ([place]) Glucose 87 70 - 199 mg/dL [facility] ([place]) Comment: Interpretive Data Fasting glucose [...] MD LAB BLOOD ORDERABLES Priscila alcantara Result [facility] ([place]) 1 [facility] [place] [address] * ECG 12 lead (09/07/2024 10:44 AM CDT) 09/07/2024 10:4 4 AM CDT Narrative [facility] - 09/07/2024 4:49 PM CDT Vent Rate: 60 bpm RR Interval: 996 msec WY Interval: 119 msec QRS Duration: 72 msec QT Interval: 423 msec QTC Interval: 423 msec P-R-T Olin: 64 - 49 - -64 degrees IMPRESSION: SINUS RHYTHM WITH SHORT WY INTERVAL POSSIBLE LEFT ATRIAL ENLARGEMENT [-0.1mV P-WAVE IN V1/V2] MODERATE T-WAVE ABNORMALITY, CONSIDER INFERIOR and lateral ISCHEMIA [-0.1+ mV T-WAVE IN II/aVF] ABNORMAL ECG Compared to prior EKG, T -wave inversions are less evident Electronically Signed By: Aroldo Bland MD Debbie Claros MD ECG ORDERABLES Final Res ult [facility] * Troponin T high-sensitivity series (baseline, 2hr, 4hr, 6hr) (08/27/2024 10:56 AM CDT) Trop T hs <6 <=14 ng/L Comment: Interpretive Data For further hscTnT resources including the diagnostic algorithm and an aid in interpretation, copy and paste this link: https://nrl.testcatalog.org/show/hsTrop Current Interpretive Data last revised 2020. Blood 08/27/2024 10:5 6 AM CDT 08/27/2024 10:58 AM CDT Zia Shrestha NP LAB BLOOD ORDERABLES Final Re sult [facility] [address] [facility] Department [place] [address] * eGFR (08/27/2024 10:56 AM CDT) eGFR [...] 08/27/2024 10:58 AM CDT Zia D. Files CIGARETTE MAKING EXAMINER LAB BLOOD ORDERABLES Final Re sult Performing Organization Address [facility] Co de Phone Number [facility] [address] [place] [phone] * Thyroid Function [place] (08/27/2024 10:56 AM CDT) TSH 0.43 0.30 - 4.20 mcIUnit/mL Blood 08/27/2024 10:5 6 AM CDT 08/27/2024 10:58 AM CDT Zia Mccain. Files CIGARETTE MAKING EXAMINER LAB BLOOD ORDERABLES Final Re sult Performing Organization Address [facility] de Phone Number [address] [address] * hCG, blood, quantitative (08/27/2024 10:56 AM [...] 08/27/2024 10:58 AM CDT Zia D. Files CIGARETTE MAKING EXAMINER LAB BLOOD ORDERABLES Final Re sult Performing Organization Address [facility] Co de Phone Number [facility] [address] [place] [address] [place] [address] * Ethanol (08/27/2024 10:56 AM CDT) Ethanol <10 <=10 mg/dL Comment: Interpretive Data Legal limit of intoxication > or = 80 mg/dL Levels > or = 400 mg/dL are potentially TOXIC. Current interpretive data was last revised on 2018. Blood 08/27/2024 10:5 6 AM CDT 08/27/2024 10:58 AM CDT us Zia Guajardo Files CIGARETTE MAKING EXAMINER LAB BLOOD ORDERABLES Final Re sult [facility] [address] [facility] [place] [address] * (ABNORMAL) Comprehensive metabolic panel (08/27/2024 10:56 AM CDT) Pathologist [facility] Sodium 135 135 - 145 mmol/L Potassium, pl 3.3 3.3 - 4.9 mmol/L [facility] Chloride 101 97 - 110 mmol/L [facility] CO2 20(L) 22 - 32 mmol/L [facility] Anion gap 14 2 - 15 mmol/L [facility] BUN 9 6 - 25 mg/dL [facility] Creatinine 0.52(L) 0.60 - 1.10 mg/dL [facility] Glucose 102 70 - 199 mg/dL [facility] Comment: Interpretive Data Fasting glucose >/= [...] 2022. Calcium 8.4(L) 8.5 - 10.3 mg/dL [facility] Bilirubin, total 0.5 0.1 - 1.2 mg/dL [facility] Protein, pl 6.8 6.5 - 8.5 g/dL [facility] Albumin 4.3 3.5 - 5.2 g/dL [facility] Alk phos 89 40 - 130 Units/L [facility] ALT 9 7 - 45 Units/L [facility] AST 22 10 - 45 Units/L [facility] Blood 08/27/2024 10:5 6 AM CDT 08/27/2024 10:58 AM CDT us Zia Guajardo Files CIGARETTE MAKING EXAMINER LAB BLOOD ORDERABLES Final Re sult [facility] [address] Department [place] [address] * (ABNORMAL) Urinalysis reflex to microscopic and culture Urine (08/27/2024 10:05 AM CDT) Color, ur Yellow Yellow [facility] Clarity, ur Clear Clear [facility] Specific gravity, ur 1.026 1.003 - 1.030 [facility] pH, urine 8.5 [facility] Comment: Interpretive Data U rine pH is affected by diet, medications, systemic acid-base disturbances, and renal tubular function. pH may affect urinary stone formation. For example, urine pH below 6.0 may help reduce the tendency for calcium phosphate stones and pH greater than 6.0 may reduce the tendency for uric acid stone formation. Source: [facility] Current Interpretive Data was last revised on 2017 Protein, ur ql 1+(A) Negative [facility] Glucose, ur ql Trace(A) Negative [facility] Ketones, ur 4+(A) Negative [facility] Bilirubin, ur Negative Negative [facility] Blood, ur Negative Negative [facility] Urobilinogen, ur <2.0 <2.0 mg/dL [facility] Nitrite, ur Negative Negative [facility] Leukocyte esterase, ur Negative Negative [facility] UA reflex comment Reflex to microscopic UA will be performed. [facility] Urine 08/27/2024 10:0 5 AM CDT 08/27/2024 10:10 AM CDT Zia Shrestha CIGARETTE MAKING EXAMINER LAB MICROBIOLOGY - GENERAL OR DERABLES Final Result [facility] [address] [place] [address] * (ABNORMAL) Drugs of Abuse Screen, Urine without Confirmation (08/27/2024 10:05 AM CDT) [facility] Amphetamine, ur Not Detected CutOff 500ng/mL Comment: Interpretive Data - Amphetamines: Samples containing greater than 500 ng/mL d-methamphetamine or other cross-reacting amphetamine compounds are reported as positive. Amphetamine immunoassays are subject to significant false positive rates due to cross-reactivity of non-amphetamine drugs. Confirmatory testing required for definitive results. Current Interpretive Data was last reviewed 2022. Barbiturates, ur Not Detected CutOff 200ng/mL [facility] Comment: Interpretive Data - Barbiturates: Samples containing greater than 200 ng/mL secobarbital or other cross-reacting barbiturate compounds are reported as positive. False positive and false negative results are possible. Confirmatory testing required for definitive results. Current Interpretive Data was last reviewed 2022. Benzodiazepines, ur Not Detected CutOff 100ng/mL [facility] Comment: Interpretive Data - Benzodiazepines: Samples containing greater than 100 ng/mL nordiazepam or other cross-reacting compounds are reported as positive. False positive and false negative results are possible. Confirmatory testing required for definitive results. Current Interpretive Data was last reviewed 2022. Cannabinoids, ur Screen Positive, presumptive (A) CutOff 50 ng/mL [facility] Comment: Interpretive Data - Cannabinoids: Samples containing greater than 50 ng/mL delta-9 THC -COOH or other cross- reacting compounds are reported as positive. False positive and false negative results are possible. Confirmatory testing required for definitive results. Current Interpretive Data was last reviewed 2022. Cocaine, ur Not Detected CutOff 150ng/mL [facility] Comment: Interpretive Data - Cocaine: Samples containing greater than 150 ng/mL benzoylecgonine or other cross- reacting compounds are reported as positive. False positive and false negative results are possible. Confirmatory testing required for definitive results. Current Interpretive Data was last reviewed 2022. Fentanyl, Ur Not Detected CutOff 5 ng/mL [facility] Comment: Interpretive Data - Fentanyl: Samples containing greater than 5 ng/mL norfentanyl, fentanyl, or other cross-reacting fentanyl compounds are reported as positive. False positive and false negative results are possible. Confirmatory testing required for definitive results. Current Interpretive Data was last reviewed 2023. Methadone, ur Not Detected CutOff 300ng/mL [facility] Comment: Interpretive Data - Methadone: Samples containing greater than 300 ng/mL d,l-methadone or other cross-reacting compounds are reported as positive. False positive and false negative results are possible. Confirmatory testing required for definitive results. Current Interpretive Data was last reviewed 2022. Opiates, ur Not Detected CutOff 300ng/mL [facility] Comment: Interpretive Data - Opiates: Samples containing greater than 300 ng/mL morphine or other cross-reacting compounds are reported as positive. False positive and false negative results are possible. Confirmatory testing required for definitive results. Current Interpretive Data was last reviewed 2022. Oxycodone, ur Not Detected CutOff 100ng/mL [facility] Comment: Interpretive Data - Oxycodone: Samples containing greater than 100 ng/mL oxycodone or other cross-reacting compounds are reported as positive. False positive and false negative results are possible. Confirmatory testing required for definitive results. Current Interpretive Data was last reviewed 2022. Phencyclidine, ur Not Detected CutOff 25 ng/mL [facility] Comment: Interpretive Data - Phencyclidine: Samples containing greater than 25 ng/mL phencyclidine or other cross-reacting compounds are reported as positive. False positive and false negative results are possible. Confirmatory testing required for definitive results. Current Interpretive Data was last reviewed 2022. Urine Creatinine 124 mg/dL [facility] Comment: Interpretive Data Urine Creatinine: < 10 mg/dL is extremely dilute = or > 10 but < 20 mg/dL is dilute = or > 20 mg/dL is normal Current Interpretive Data was last revised on 2017. Urine 08/27/2024 10:0 5 AM CDT 08/27/2024 10:10 AM CDT Narrative [facility] - 08/27/2024 11:33 AM CDT Drug of Abuse screening is performed by immunoassay for medical purposes only. This is not to be used for Pain Management purposes. Zia Guajardo Files CIGARETTE MAKING EXAMINER LAB URINE ORDERABLES Final Re sult Performing Organization Address [facility] de Phone Number [facility] [address] [place] [address] * (ABNORMAL) Urinalysis, microscopic only (08/27/2024 10:05 AM CDT) WBC, ur 0-5 0 - 5 /HPF [facility] RBC, ur 6-10(A) 0 - 2 /HPF [facility] Epithelial cells, squamous, ur 11-20(A) 0 - 5 /HPF [facility] Bacteria, ur Trace(A) [facility] Mucous, ur Present(A) [facility] Culture Reflex Comment Reflex conditions for urine culture (WBC >10) not met. [facility] Urine 08/27/2024 10:0 5 AM CDT 08/27/2024 10:10 AM CDT Zia Mccain. Files LAB URINE ORDERABLES Final Re sult Performing Organization Address [facility] Phone Number [address] [phone] * ECG 12 lead (08/27/2024 9:43 AM CDT) 08/27/2024 9:43 AM CDT Narrative [facility] - 08/27/2024 9:55 AM CDT Vent Rate: 82 bpm RR Interval: 729 msec WY Interval: 132 msec QRS Duration: 76 msec QT Interval: 438 msec QTC Interval: 476 msec P-R-T Olin: 83 - 67 - 265 degrees IMPRESSION: SINUS RHYTHM POSSIBLE LEFT ATRIAL ENLARGEMENT ST DEVIATION AND MODERATE T-WAVE ABNORMALITY, CONSIDER ANTEROLATERAL ISCHEMIA ST DEVIATION AND MODERATE T-WAVE ABNORMALITY, CONSIDER INFERIOR ISCHEMIA ABNORMAL ECG Electronically Signed By: Asuncion Kruse MD Zia Guajardo Files CIGARETTE MAKING EXAMINER ECG ORDERABLES Final Result [facility] * eGFR (08/27/2024 9:30 AM CDT) eGFR [...] CDT 08/27/2024 10:11 AM CDT Zia Shrestha CIGARETTE MAKING EXAMINER LAB BLOOD ORDERABLES Final Re sult [facility] [address] [facility] Department [place] [address] * (ABNORMAL) Differential, auto (08/27/2024 9:30 AM CDT) Neutrophil abs 11.65(H) 1.50 - 6.50 K/cumm Imm gran abs 0.04 0.00 - 0.10 K/cumm [facility] Lymphocyte abs 0.47(L) 0.80 - 3.30 K/cumm [facility] Monocyte abs 0.41 0.20 - 0.80 K/cumm [facility] Eosinophil abs 0.02 0.00 - 0.50 K/cumm [facility] Basophil abs 0.01 0.00 - 0.10 K/cumm [facility] Neutrophil pct 92.4 % [facility] Comment: Interpretive Data Percent cell count reference ranges are not reported, since discordance with absolute values may lead to misinterpretation of CBC data. Current Interpretive Data was last revised on 2017. Imm gran pct 0.3 % [facility] Comment: Interpretive Data Percent cell count reference ranges are not reported, since discordance with absolute values may lead to misinterpretation of CBC data. Current Interpretive Data was last revised on 2017. Lymphocyte pct 3.7 % [facility] Comment: Interpretive Data Percent cell count reference ranges are not reported, since discordance with absolute values may lead to misinterpretation of CBC data. Current Interpretive Data was last revised on 2017. Monocyte pct 3.3 % [facility] Comment: Interpretive Data Percent cell count reference ranges are not reported, since discordance with absolute values may lead to misinterpretation of CBC data. Current Interpretive Data was last revised on 2017. Eosinophil pct 0.2 % [facility] Comment: Interpretive Data Percent cell count reference ranges are not reported, since discordance with absolute values may lead to misinterpretation of CBC data. Current Interpretive Data was last revised on 2017. Basophil pct 0.1 % [facility] Comment: Interpretive Data Percent cell count reference ranges are not reported, since discordance with absolute values may lead to misinterpretation of CBC data. Current Interpretive Data was last revised on 2017. Blood 08/27/2024 9:30 AM CDT 08/27/2024 10:11 AM CDT us Zia Shrestha CIGARETTE MAKING EXAMINER LAB BLOOD ORDERABLES Final Re sult [facility] [address] [facility] Department [place] [address] * Thyroid Function [place] (08/27/2024 9:30 AM CDT) TSH See Comment 0.30 - 4.20 mcIUnit/m L Comment:See new accession nu mber. Blood 08/27/2024 9:30 AM CDT 08/27/2024 10:11 AM CDT Zia Guajardo Files CIGARETTE MAKING EXAMINER LAB BLOOD ORDERABLES Final Re sult Performing Organization Address [facility] Co de Phone Number [address] [address] * (ABNORMAL) CBC with auto differential (08/27/2024 9:30 AM CDT) [facility] WBC 12.60(H) 3.80 - 9.90 K/cumm Hgb 13.9 11.9 - 15.5 g/dL [facility] Hct 40.9 35.6 - 45.5 % [facility] Plt 212 150 - 400 K/cumm [facility] MPV 11.9 9.1 - 12.3 fL [facility] RBC 4.09 3.90 - 5.20 M/cumm [facility] MCV 100.0(H) 81.3 - 96.4 fL [facility] MCH 34.0(H) 27.1 - 33.3 pg [facility] MCHC 34.0 32.3 - 35.7 g/dL [facility] RDW CV 12.7 11.1 - 14.9 % [facility] RDW SD 47.0 35.7 - 48.1 fL [facility] NRBC abs 0.00 0.00 - 0.01 K/cumm [facility] Blood 08/27/2024 9:30 AM CDT 08/27/2024 10:11 AM CDT Zia Guajardo Files CIGARETTE MAKING EXAMINER LAB BLOOD ORDERABLES Final Re sult Performing Organization Address [facility]/ZIP Co de Phone Number [address] [address] * hCG, blood, quantitative (08/27/2024 9:30 AM CDT) [facility] hCG, quant See Comment 0.0 - 5.0 [...] 08/27/2024 10:11 AM CDT Zia D. Files CIGARETTE MAKING EXAMINER LAB BLOOD ORDERABLES Final Re sul Performing Organization Address [facility] de Phone Number [facility] [address] [place] [address] * Ethanol (08/27/2024 9:30 AM CDT) Pathologist [facility] Ethanol See Comment <=10 mg/dL Comment: See new accession number. Interpretive Data Legal limit of intoxication > or = 80 mg/dL Levels > or = 400 mg/dL are potentially TOXIC. Current interpretive data was last revised on 2018. Blood 08/27/2024 9:30 AM CDT 08/27/2024 10:11 AM CDT Zia D. Files CIGARETTE MAKING EXAMINER LAB BLOOD ORDERABLES Final [facility] Performing Organization Address [facility] de Phone Number [address] [address] * Comprehensive metabolic panel (08/27/2024 9:30 AM CDT) Sodium See Comment 135 - 145 mmol/L Comment:See new accession nu mber. Potassium, pl See Comment 3.3 - 4.9 mmol/L [facility] Comment:See new accession nu mber. Chloride See Comment 97 - 110 mmol/L [facility] Comment:See new accession nu mber. CO2 See Comment 22 - 32 mmol/L [facility] Comment:See new accession nu mber. Anion gap See Comment 2 - 15 [facility] Comment:See new accession nu mber. BUN See Comment 6 - 25 mg/dL [facility] Comment:See new accession nu mber. Creatinine See Comment 0.60 - 1.10 mg/dL [facility] Comment:See new accession nu mber. Glucose See Comment 70 - 199 mg/dL [facility] Comment: See new accession number. Interpretive [...] Calcium See Comment 8.5 - 10.3 mg/dL [facility] Comment:See new accession nu mber. Bilirubin, total See Comment 0.1 - 1.2 mg/dL [facility] Comment:See new accession nu mber. Protein, pl See Comment 6.5 - 8.5 g/dL [facility] Comment:See new accession nu mber. Albumin See Comment 3.5 - 5.2 g/dL [facility] Comment:See new accession nu mber. Alk phos See Comment 40 - 130 Units/L [facility] Comment:See new accession nu mber. ALT See Comment 7 - 45 Units/L [facility] Comment:See new accession nu mber. AST See Comment 10 - 45 Units/L [facility] Comment:See new accession nu mber. Blood 08/27/2024 9:30 AM CDT 08/27/2024 10:11 AM CDT Zia Shrestha CIGARETTE MAKING EXAMINER LAB BLOOD ORDERABLES Final Re sult [facility] [address] [facility] Department [place] [address] * Serum Hepatitis C ab (05/31/2014 9:48 AM ADULT LITERACY TEACHER) HCV ab Negative NEG HISTORICAL RESULTS Serum 05/31/2014 9:48 AM ADULT LITERACY TEACHER Narrative HISTORICAL RESULTS - 06/01/2014 3:57 AM ADULT LITERACY TEACHER Interpretive Data If confirmation is required, call Laboratory Customer Service to request sample to be sent to [facility] for Hepatitis C Virus (HCV) RNA Detection and Quantitation by Real-Time Reverse Harm Reduction Worker-PCR (RT-PCR). Current interpretive data was last revised on 2011 us Adam Dean MD LAB BLOOD ORDERABLES Final Res ult HISTORICAL RESULTS from Last 3 Months or Most Recently Relevant to Health Maintenance Insurance [facility] Care Teams Welding Pantograph Machine Operator Relationship Specialty Start Date End Date Chandan Bradley MD [address] [facility] [place] [address] PCP - General Psychiatry 08/27/24
--- OUTSIDE RECORDS SUMMARY | 2024-09-10 13:41 | XMS_ITS | Clinical Summary ---
Author Organization 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
--- OUTSIDE RECORDS SUMMARY | 2024-09-10 13:42 | XMS_ITS | CONTINUITY OF CARE DOCUMENT ---
Author Name tadeojazz neo Address Unknown Organization [facility] Address [address] [place] [address] [address] [place] [address] Phone [phone] Care Team Providers Care Gambling Monitor Name Role Phone Rajendra JOHNSTON, Deb Unavailable COSMO JOHNSTON, MERLENE Unavailable INSURANCE PROVIDERS Payer name Policy type / Coverage type Rachelle red constitution party ID [facility] Medicaid 0 [id number]
[2024-09-10 13:46] VITALS: BP 103/64; PULSE 79; RESP 18; TEMP 36.3; O2SAT 100
--- NOTE | 2024-09-10 14:15 | ED.GENADULT ---
HPI - General Adult General Chief complaint: Chest Pain Stated complaint: Chest Pain/Back Pain Source: patient Mode of arrival: ambulatory Limitations: no limitations History of Present Illness HPI narrative: Pt presents for evaluation of right sided chest pain. Symptom onset four days ago. The day before she was rowing, traveling many miles in distance. She attributed her symptoms to the exercise she performed the day before. Her symptoms worsened three days ago. She indicates movement, inspiration, sneezing coughing her symptoms worse. She does report a cough and SOB. Pain radiates into her back and down RUE. She is tearful due to the severity of her symptoms. She does smoke marijuana. She denies tobacco use. She states her current symptoms are consistent with those she had in the past with a spontaneous pneumothorax. I was actually the clinician that evaluated her here for that encounter. Related Data Home Medications ?Medication ?Instructions ?Recorded ?Confirmed ?Last Taken ?Type levonorgestrel-ethinyl estradiol 1 tablet PO DAILY 05/03/23 02/03/24 Unknown History 90 mcg-20 mcg (28) tablet (Laura (28)) sertraline 100 mg tablet 150 mg PO DAILY 09/16/23 02/03/24 Unknown History clonazepam 0.5 mg tablet mg 09/10/24 Unknown History guanfacine 2 mg tablet mg 09/10/24 Unknown History hydroxyzine HCl 25 mg tablet mg 09/10/24 Unknown History levetiracetam 500 mg tablet mg PO 09/10/24 Unknown History Allergies Allergy/AdvReac Type Severity Reaction Status Date / Time tari Allergy Severe THROAT Verified 09/10/24 14:09 SWELLING, FACIAL SWELLING ketamine AdvReac Intermediate Anxiety Verified 09/10/24 14:09 Review of Systems Review of Systems: CONSTITUTIONAL: Denies fever, chills, or sweats. EYES: Denies visual changes, redness, or discharge. ENT: Denies rhinorrhea, congestion, sore throat, or otalgia. CARDIOVASCULAR: Reports chest pain. Denies palpitations, or edema. RESPIRATORY: Reports cough and SOB GASTROINTESTINAL: Denies abdominal pain, nausea, vomiting, or diarrhea. GENITOURINARY: Denies dysuria or hematuria. SKIN: Denies rash or itching. MUSCULOSKELETAL: Denies back pain, joint pain, or myalgia. NEUROLOGIC: Denies headache, numbness, dizziness, or weakness. PSYCHIATRIC: Denies anxiety or depression. [facility] Past Medical History Medical History IBS (irritable bowel syndrome) Seizure epilepsy, last one one month ago (focal seizure) takes daily meds Surgical History Surgical History No pertinent past surgical history Family History Family History Mother Family history non-contributory Social History Social History Smoking status: Former smoker Alcohol intake: never Substance use: current Substance use type: marijuana Other substance usage details: daily Lack of Transportation: No Lack of Food: Never True Current Housing: I Have Housing Concerned About Future Housing: No Difficulty Paying Gas/Electric Bills: No Difficulty Paying for Meds: No Currently Unemployed: No Education: High School Diploma/GED Difficulty w/ Childcare or Family Care: No Living arrangements: with family Additional occupation/education comments: lives with boyfriend Gender identity (if verbalized by the patient): Female Sexual Orientation (if Verbalized by the Patient): Straight or Heterosexual Spiritual care concerns: No Exam Narrative: GENERAL: Well-appearing, well-nourished, and in no acute distress. HEAD: Normocephalic, atraumatic. EYES: PERRLA and EOMI. ENT: Nares clear, no rhinorrhea or epistaxis. Mucous membranes moist. Oropharynx without tonsillar hypertrophy exudate or other lesions. Bilateral TMs pearly reza nonbulging NECK: Supple. No adenopathy or masses. No carotid bruits or JVD CHEST: Slight wheezing in RUL. Other lung doll CTA. There is tenderness to right anterior chest wall HEART: Regular rate and rhythm. No murmur heard. Normal peripheral pulses. ABDOMEN: Soft, nontender, nondistended, normal active bowel sounds. EXTREMITIES: Normal range of motion. No edema. SKIN: Warm, dry, no rash. NEURO: No focal deficits. Alert and oriented x3. PSYCH: Normal mood and affect. Course Course Emergency Course: This is a 34-year-old female that presented for evaluation of chest pain. Chest x-ray was obtained due to history of spontaneous pneumothorax. Chest x-ray was normal. EKG showed sinus bradycardia. Pt did not want to go to the hospital for further evaluation. She is on guafacine which can cause bradycardia. She would like to go home. She states if she has persistent or worsening symptoms, she will go to the ER. Her pain is reproducible with movement and palpation, which suggests musculoskeletal etiology. She is in agreement with plan of care. Level of Care: Express Care Visit Vital Signs Vital signs: Vital Signs Temperature 36.3 C L 09/10/24 13:46 Pulse Rate 79 09/10/24 13:46 Respiratory Rate 18 09/10/24 13:46 Blood Pressure 103/64 09/10/24 13:46 Pulse Oximetry 100 09/10/24 13:46 Oxygen Delivery Room Air 09/10/24 13:46 Temperature 36.3 C L 09/10/24 13:46 Pulse Rate 79 09/10/24 13:46 Respiratory Rate 18 09/10/24 13:46 Blood Pressure 103/64 09/10/24 13:46 Pulse Oximetry 100 09/10/24 13:46 Oxygen Delivery Room Air 09/10/24 13:46 Medical Decision Making Vital Signs Vital Signs: Vital Signs Temperature 36.3 C L 09/10/24 13:46 Pulse Rate 79 09/10/24 13:46 Respiratory Rate 18 09/10/24 13:46 Blood Pressure 103/64 09/10/24 13:46 Pulse Oximetry 100 09/10/24 13:46 Oxygen Delivery Room Air 09/10/24 13:46 Temperature 36.3 C L 09/10/24 13:46 Pulse Rate 79 09/10/24 13:46 Respiratory Rate 18 09/10/24 13:46 Blood Pressure 103/64 09/10/24 13:46 Pulse Oximetry 100 09/10/24 13:46 Oxygen Delivery Room Air 09/10/24 13:46 Imaging Data Radiologist's impression: EXAMINATION: XR chest 2V Exam Date/Time: 09/10/2024 14:09 CDT HISTORY: sob and chest pain, HX PNEUMONIA PNEUMOTHORAX Comparison: 09/16/2023. RESULT: Lines, tubes, and devices: Right apical staple line. Lungs and pleura: Clear. Cardiomediastinal silhouette: Stable. Other: No acute osseous or upper abdominal finding. IMPRESSION: No acute cardiopulmonary process. ECG Data EKG #1: ECG completion date: 09/10/24 ECG completion time: 14:33 Interpretation: Sinus rhythm, Rate 53, nonspecific T wave changes Discharge Plan Discharge Clinical Impression: Chest pain Patient Disposition: Home Condition: Stable Instructions: Antibiotic Form, Chest Pain (DC) Additional Instructions: IF YOU HAVE PERSISTENT OR WORSENING SYMPTOMS, PLEASE GO TO THE ER Patient Language: [place] Prescriptions: New ibuprofen 800 mg tablet 800 mg PO TID PRN (Reason: pain) Qty: 30 0RF cyclobenzaprine 10 mg tablet 10 mg PO TID PRN (Reason: muscle spasm) Qty: 20 0RF No Action sertraline 100 mg tablet 150 mg PO DAILY levonorgestrel-ethinyl estrad [Laura (28)] 90-20 mcg (28) tablet 1 tablet PO DAILY levetiracetam 500 mg tablet PO clonazepam 0.5 mg tablet hydroxyzine HCl 25 mg tablet guanfacine 2 mg tablet levetiracetam 750 mg tablet 1,500 mg PO BID Qty: 60 5RF oxcarbazepine [Trileptal] 300 mg tablet 450 mg PO BID Qty: 60 5RF Follow-up/Referrals: Savannah Montes De Oca DO [Physician] - Time of Disposition: 14:44
[2024-09-10] MEDS: KETOROLAC (*BKC) 60 MG/2 ML VIAL IM (14:21)
--- NOTE | 2024-09-10 14:29 | ECG_ITS ---
Test Date: 2024-09-10 14:33:46 Measurements Intervals [place] Rate: 53 P: 78 IN: 121 QRS: 40 QRSD: 75 T: -27 QT: 420 QTc: 397 Interpretive Statements SINUS BRADYCARDIA BORDERLINE ST-T WAVE ABNORMALITY- INFERIOR LEADS BASELINE ARTIFACT- I, II, III, AVL, AVF BORDERLINE ECG No previous ECG available for comparison Electronically Signed On 09-10-2024 16:11:39 CDT by Kyler Guzman D.O.
== END 2024-09-10 14:45 | disposition home or self-care (01) ==
PROVIDERS: Emergency Provider Nurse Practitioner
DX: R07.89 Other chest pain (principal); F12.90 Cannabis use, unspecified, uncomplicated; G40.909 Epilepsy, unspecified, not intractable, without status epilepticus
CPT/HCPCS: 71046; 93005; 96372; 99213; G0463; J1885

== ENCOUNTER 2025-01-22 11:56 | Emergency (ER) | payer OTHER, SELFPAY ==
--- OUTSIDE RECORDS SUMMARY | 2025-01-22 11:58 | XMS_ITS | Clinical Summary ---
Author Organization [facility] Address [address] [place] [address] Care Team Providers Care Leveler Helper Name Role Phone Chandan Bradley MD Primary Care Provider [phone] Allergies Active Allergy Reactions Criticality Noted Date [...] Encounters Date Type Department Care Team Description 10/27/2024 1:41 AM CDT - 10/27/2024 6:17 AM CDT Emergency [facility] Emergency Department [address] [place] [address] Kristin Ritter MD Anxiety attack (Primary Dx); Hypokalemia; Nausea and vomiting, unspecified vomiting type Discharge Disposition: Discharge to home or self [...] making you feel afraid or unsafe? Denies 10/27/2024 Comments No Sex and Gender Information Value Date Recorded Sex Assigned at Not on file Legal Sex Female 6:37 AM CLINICAL APPLICATION SPECIALIST Gender Identity Not on file Sexual Orientation Not on file Obstetrics History Last Filed Vital Signs Vital Sign Reading Time Taken Comments Blood Pressure 94/60 10/27/2024 1:45 AM CDT Pulse 65 10/27/2024 1:45 AM CDT Temperature 36.9 C (98.5 F) 10/27/2024 2:55 AM CDT Respiratory Rate 22 10/27/2024 1:45 AM CDT Oxygen Saturation 99% 10/27/2024 1:45 AM CDT Inhaled Oxygen Concentration - - Weight 61.2 kg (135 lb) 10/27/2024 1:41 AM CDT Height 165.1 cm (5' 5) 10/27/2024 2:55 AM CDT Body Mass Index 22.47 10/27/2024 1:41 AM CDT Plan of Treatment Health Maintenance Due Date Last Done Comments Cervical Cancer Screening 1989 Depression Screening 1989 Varicella Vaccines (1 of 2 - 13+ 2-dose series) 2002 Regular Well Visit/Exam 18-64 2007 HPV Vaccines (1 - 3-dose SCD M series) 02/14/2016 Influenza Vaccine (#1) 2024 , 01/28/2017 DTaP/Tdap/Td Vaccine (2 - Td or Tdap) 03/18/2027 03/18/2017 Hepatitis C Screening Completed 05/31/2014 Hepatitis B Screening Completed 09/23/2023 , 05/21/2023, 03/20/2023 Pneumococcal vaccine <65 Aged Out No longer eligible based on patient's age to complete this topic Procedures Procedure Name Priority Date/Time Associated Diagnosis Comments LACTATE STAT 10/27/2024 5:13 AM CDT ECG 12-LEAD Routine 10/27/2024 1:59 AM CDT MANUAL DIFFERENTIAL STAT 10/27/2024 1 :49 AM CDT EGFR STAT 10/27/2024 1:49 AM CDT HCG, BLOOD, QUANTITATIVE Add-On 10/27/2024 1:49 AM CDT LACTATE STAT 10/27/2024 1:49 AM CDT COMPREHENSIVE METABOLIC PANEL STAT 10/27/2024 1:49 AM CDT CBC WITH AUTO DIFFERENTIAL STAT 10/27/2024 1:49 AM CDT SERUM HEPATITIS C AB Routine 05/31/2014 9:48 AM CLINICAL APPLICATION SPECIALIST from Last 3 Months or Most Recently Relevant to Health Maintenance Results * Lactate (10/27/2024 5:13 AM CDT) Lactate 1.7 0.7 - 2.0 mmol/L Blood 10/27/2024 5:13 AM CDT 10/27/2024 5:15 AM CDT Kristin Ritter MD LAB BLOOD ORDERABLES Final Resul t Performing Organization Address City/[facility] Co de Phone Number [facility] ([address] Department of Laboratories [place] [phone] * ECG 12 lead (10/27/2024 1:59 AM CDT) 10/27/2024 1:59 AM CDT Narrative [facility] - 10/27/2024 6:38 AM CDT Vent Rate: 60 bpm RR Interval: 993 msec DC Interval: 117 msec QRS Duration: 84 msec QT Interval: 435 msec QTC Interval: 436 msec P-R-T [place]: 82 - 69 - -67 degrees IMPRESSION: SINUS RHYTHM WITH SHORT DC INTERVAL POSSIBLE LEFT ATRIAL ENLARGEMENT [-0.1mV P-WAVE IN V1/V2] ST DEVIATION AND MODERATE T-WAVE ABNORMALITY, CONSIDER INFERIOR ISCHEMIA [-0.1+ mV T-WAVE IN II/aVF] ABNORMAL ECG NO CHANGE FROM PREVIOUS TRACING NOTED Electronically Signed By: Aroldo Bland MD us Contreras PEREZ ECG ORDERABLES Final Result Performing Organization Address [facility] Co de Phone Number [facility] [employer] [facility] * (ABNORMAL) Lactate (10/27/2024 1:49 AM CDT) Pathologist [facility] Lactate 5.5(C) 0.7 - 2.0 mmol/L Comment:Critical result call ed to and read back by _isak peterson (_) on 10/27/2024 05:03:37 CDT to abel kingsley. Blood 10/27/2024 1:49 AM CDT 10/27/2024 1:54 AM CDT us Contreras PEREZ LAB BLOOD ORDERABLES Final Result Performing Organization Address City/[facility]/ZIP Co de Phone Number [facility] ([place]) [address] [facility] [place] [address] * eGFR (10/27/2024 1:49 AM CDT) Pathologist [facility] eGFR >90 >=60 mL/min/1. 73 m2 Comment: [...] interpretive data was last reviewed 2021. Blood 10/27/2024 1:49 AM CDT 10/27/2024 1:54 AM CDT us Kristin Ritter MD LAB BLOOD ORDERABLES Final Resul t [facility] ([place]) [address] [facility] [place] [address] * (ABNORMAL) CBC with auto differential (10/27/2024 1:49 AM CDT) Pathologist [facility] WBC 15.71(H) 3.80 - 9.90 K/cumm Hgb 14.1 11.9 - 15.5 g/dL [facility] ([place]) Hct 41.3 35.6 - 45.5 % [facility] ([place]) Plt 234 150 - 400 K/cumm [facility] ([place]) MPV 11.3 9.1 - 12.3 fL [facility] ([place]) RBC 4.12 3.90 - 5.20 M/cumm [facility] ([place]) MCV 100.2(H) 81.3 - 96.4 fL [facility] ([place]) MCH 34.2(H) 27.1 - 33.3 pg [facility] ([place]) MCHC 34.1 32.3 - 35.7 g/dL [facility] ([place]) RDW CV 12.1 11.1 - 14.9 % [facility] ([place]) RDW SD 45.2 35.7 - 48.1 fL [facility] ([place]) NRBC abs 0.00 0.00 - 0.01 K/cumm [facility] ([place]) Blood 10/27/2024 1:49 AM CDT 10/27/2024 1:54 AM CDT us Kristin Ritter MD LAB BLOOD ORDERABLES Final Resul t [facility] ([place]) [address] [facility] [place] [address] * (ABNORMAL) Manual Differential (10/27/2024 1:49 AM CDT) Differential Manual Cells Counted 100 [facility] ([place]) Neutrophil abs 14.45(H) 1.50 - 6.50 K/cumm [facility] ([place]) Lymphocyte abs 0.47(L) 0.80 - 3.30 K/cumm [facility] ([place]) Monocyte abs 0.79 0.20 - 0.80 K/cumm [facility] ([place]) Neutrophil pct 92.0 % [facility] ([place]) Comment: Interpretive Data Percent cell count reference ranges are not reported, since discordance with absolute values may lead to misinterpretation of CBC data. Current Interpretive Data was last revised on 2017. Lymphocyte pct 3.0 % [facility] ([place]) Comment: Interpretive Data Percent cell count reference ranges are not reported, since discordance with absolute values may lead to misinterpretation of CBC data. Current Interpretive Data was last revised on 2017. Monocyte pct 5.0 % [facility] Comment: Interpretive Data Percent cell count reference ranges are not reported, since discordance with absolute values may lead to misinterpretation of CBC data. Current Interpretive Data was last revised on 2017. RBC morphology Consistent with RBC Indicies [facility] ([place]) Platelet estimate Adequate [facility] ([place]) Blood 10/27/2024 1:49 AM CDT 10/27/2024 1:56 AM CDT us Kristin Ritter MD LAB BLOOD ORDERABLES Final Resul t Performing Organization Address City/[facility]/ZIP Co de Phone Number [facility] ([place]) [address] [facility] [address] [place] [address] * hCG, blood, quantitative (10/27/2024 1:49 AM CDT) hCG, quant <5.0 0.0 - 5.0 IUnits/L [facility] ([place]) Comment: Interpretive Data Male: < 5 IU/L Non- premenopausal Female: <5 IU/L The Laura hCG Beta Quant assay procedure was used. Results from different manufacturers or methods may not be comparable. Serial testing should be performed using the same method. Interpretive Data was last revised on 2023 Blood 10/27/2024 1:49 AM CDT 10/27/2024 2:14 AM CDT us Contreras PEREZ LAB BLOOD ORDERABLES Final Result [facility] ([place]) [address] [facility] [address] [place] [address] * (ABNORMAL) Comprehensive metabolic panel (10/27/2024 1:49 AM CDT) Sodium 138 135 - 145 mmol/L [facility] ([place]) Potassium, pl 3.1(L) 3.3 - 4.9 mmol/L [facility] ([place]) Chloride 100 97 - 110 mmol/L [facility] ([place]) CO2 17(L) 22 - 32 mmol/L [facility] ([place]) Anion gap 21(H) 2 - 15 mmol/L [facility] ([place]) BUN 9 6 - 25 mg/dL [facility] ([place]) Creatinine 0.58(L) 0.60 - 1.10 mg/dL [facility] ([place]) Glucose 149 70 - 199 mg/dL [facility] ([place]) [...] interpretive data was last revised 2022. Calcium 9.5 8.5 - 10.3 mg/dL [facility] ([place]) Bilirubin, total 0.4 0.1 - 1.2 mg/dL [facility] ([place]) Protein, pl 7.8 6.5 - 8.5 g/dL [facility] ([place]) Albumin 4.6 3.5 - 5.0 g/dL [facility] ([place]) Alk phos 96 40 - 130 Units/L [facility] ([place]) ALT 7 7 - 45 Units/L [facility] ([place]) AST 24 10 - 45 Units/L [facility] ([place]) Comment:Hemolysis present. R esults may be affected.; Blood 10/27/2024 1:49 AM CDT 10/27/2024 1:54 AM CDT us Kristin Ritter MD LAB BLOOD ORDERABLES Final Resul t [facility] ([place]) [address] [facility] [place] [address] * Serum Hepatitis C ab (05/31/2014 9:48 AM CLINICAL APPLICATION SPECIALIST) HCV ab Negative NEG HISTORICAL RESULTS Serum 05/31/2014 9:48 AM CLINICAL APPLICATION SPECIALIST Narrative HISTORICAL RESULTS - 06/01/2014 3:57 AM CLINICAL APPLICATION SPECIALIST Interpretive Data If confirmation is required, call Laboratory Customer Service to request sample to be sent to [facility] for Hepatitis C Virus (HCV) RNA Detection and Quantitation by Real-Time Reverse Scientific Research Associate-PCR (RT-PCR). Current interpretive data was last revised on 2011 us Adam Dean MD LAB BLOOD ORDERABLES Final Res ult HISTORICAL RESULTS from Last 3 Months or Most Recently Relevant to Health Maintenance Insurance [facility] Care Teams Leveler Helper Relationship Specialty Start Date End Date Chandan Bradley MD [address] [place] [phone] PCP - General Psychiatry 08/27/24
--- OUTSIDE RECORDS SUMMARY | 2025-01-22 11:58 | XMS_ITS | Encounter Summary ---
Author Organization [facility] Address [address] [facility] [address] Care Team Providers Care Supervisor Laboratory Name Role Phone Person, Evy CLEARY Primary Care Provid er Encounter Details Date Type Department Care Team (Late st Contact Info) Description 01/19/2025 Telephone [facility] - Internal Med [address] [facility] [place] [phone] Cary Williamson DO [address] [facility] [phone] Social History Tobacco Use Types Packs/Day Years Used Date Smoking Tobacco: Light Smoker Cigarettes 0.5 10 Smokeless Tobacco: Never Alcohol Use Standard Drinks/Week Comments No 0 [...] on file Sexual Orientation Not on file documented as of this encounter Functional Status * Is person deaf or have serious hearing difficulty? Answer Date of Assessment Author No 05/05/2023 6:[address] kurt Pepe RN * Is person blind or have serious difficulty seeing? Answer Date of Assessment Author No 05/05/2023 6:[address] kurt Pepe RN * Does person have serious difficulty walking/climbing stairs? Answer Date of Assessment Author No 05/05/2023 6:[address] kurt Pepe RN * Does person have difficulty dressing/bathing? Answer Date of Assessment Author No 05/05/2023 6:[address] kurt Pepe RN * Does person have difficulty doing errands alone? Answer Date of Assessment Author No 05/05/2023 6:[address] kurt Pepe RN documented as of this encounter Mental Status * Does person have difficulty concentrating/remembering/making decisions? Answer Entry Date Author No 05/05/2023 6:[address] kurt Pepe RN documented in this encounter Miscellaneous Notes * Telephone Encounter - Edwin Mckinley - 01/19/2025 10:45 AM CDT HI, Patient is waiting for insurance company to update info on her neurologist, Dr. Surekha Leon. Since they won't cover a visit with him, patient wants to know of her pcp can refill her OXcarbazepine (Trileptal) 300 MG tablet and levETIRAcetam (Keppra) 750 MG tablet [place] on [address] Pt call back [phone] documented in this encounter Plan of Treatment Upcoming Encounters Date Type Department Care Team (Late st Contact Info) Description 04/27/2025 1:45 PM CLAIMS PROCESSOR Office Visit [facility] - Internal Med [address] [facility] [place] [phone] Gabe Holland MD [address] [facility] [place] [phone] documented as of this encounter Visit Diagnoses Not on filedocumented in this encounter Care Teams Supervisor Laboratory Relationship Specialty Start Date End Date Person, Evy MADIHA Espinoza PCP - General Nurse Practitioner Family 03/20/23 documented as of this encounter
--- OUTSIDE RECORDS SUMMARY | 2025-01-22 11:58 | XMS_ITS | Clinical Summary ---
Author Organization [facility] Address [address] [place] [address] Care Team Providers Care Cell Support Operator Name Role Phone Unavailable Primary Care Provider Unavailabl e Social History Tobacco Use Types Packs/Day Years Used Date Smoking Tobacco: Never Assessed Comments Unknown Sex and Gender Information Value Date Recorded Sex Assigned at Not on file Legal Sex Female 9:43 AM MANPOWER DEVELOPMENT ADVISOR Gender Identity Not on file Sexual Orientation Not on file Plan of Treatment Health Maintenance Due Date Last Done Comments Hepatitis C Virus (HCV) Screening 1989 TdaP Immunization 1989 Hepatitis B Immunization (1 of 3 - 19+ 3-dose series) 02/14/2008 Pap Smear 2010 Human Papillomavirus (HPV) Immunization (1 - 3-dose SCDM series) 02/14/2016 Cervical Cancer Screening (CCS) 2019 HPV/Cotest 2019 Influenza Immunization (#1) 2024 03/17/2019 SARS-COV-2 Immunization ( season) 2024 Respiratory Syncytial Virus (RSV) Immunization (Adult) (1 [...]
--- OUTSIDE RECORDS SUMMARY | 2025-01-22 11:58 | XMS_ITS | Encounter Summary ---
Author Organization [facility] Address [address] [place] [address] Care Team Providers Care Technical Service Representative Name Role Phone Person, Evy CLEARY Primary Care Provid er Encounter Details Date Type Department Care Team (Late st Contact Info) Description 01/19/2025 Refill [facility] - [facility] Med [address] [facility] [place] [address] Gabe Holland MD [address] [facility] [place] [address] Social History Tobacco Use Types Packs/Day Years [...] encounter Miscellaneous Notes * Telephone Encounter - Dina Jackson RN - 01/19/2025 12:52 PM CDT Refill Request Melissa Shin Recent Visits Date Type Provider Dept 09/23/23 Office Visit PersonEvy APRN-SIMRAN [facility] Showing recent visits within past 540 days with a meds authorizing provider and meeting all other requirements Future Appointments Date Type Provider Dept 04/27/25 Appointment Gabe oHlland MD [facility] Showing future appointments within next 150 days with a meds authorizing provider and meeting all other requirements Allergies: Allergies[1] Pended Medication Order: Requested Prescriptions Pending Prescriptions Disp Refills OXcarbazepine (Trileptal) 300 MG tablet 90 tablet 3 Sig: Take 1 (one) tablet by mouth 2 times daily levETIRAcetam (Keppra) 750 MG tablet 360 tablet 0 Sig: Take 2 (two) tablets by mouth 2 times daily [1] Allergies Allergen Reactions Penicillins Swelling [place] Flavor Swelling and Urticaria Ketamine Other Severe Anxiety Papaya [[facility] Papaya Enzyme] Swelling * Telephone Encounter - Maude Savage - 01/19/2025 12:01 PM CDT Current Provider: ANASTACIO/Prior Pt of Dr. Williamson, Prior to That Evy Cormier's Pt. Reason for Call: Ms. Melissa Shin responded to msg in MyChart RE: her getting refill on MEDS her Neurologist can not refill because her insurance no longer covers him. She has an appt 04/27/25, therewere no sooner appts. She is a prior pt of Dr. Donald who graduated in [facility] Please advise on REFILLS: the levETIRAcetam (Keppra) 750 MG tablet, OXcarbazepine (Trileptal) 300 MG tablet [id number] [address] [place] [address] [phone] JARON It does look like Evy Cormier previously prescribed these scripts. She has been taking them for 8 years. Then her NEUROLOGIST prescribed them , who is no longer covered under her insurance and she can't get a sooner appt. Can she get an ACUTE APPT? She has two days of meds left. Patient Call Back Number: [phone] documented in this encounter Plan of Treatment Upcoming Encounters Date Type Department Care Team (Late st Contact Info) Description 04/27/2025 1:45 PM SALAD COUNTER ATTENDANT Office Visit [facility] - Internal Med [address] [facility] [place] [id number] Gabe Holland MD [address] [facility] [place] [id number] documented as of this encounter Visit Diagnoses Diagnosis Nonintractable epilepsy without status epilepticus, unspecified epilepsy type (HCC) documented in this encounter Care Teams Technical Service Representative Relationship Specialty Start Date End Date Person, Evy DanielsDOMINGO pak-SIMRAN PCP - General Nurse Practitioner Family 03/20/23 documented as of this encounter
--- OUTSIDE RECORDS SUMMARY | 2025-01-22 11:58 | XMS_ITS | Clinical Summary ---
Author Organization [facility] [employer] Address [address] [place] [address] Care Team Providers Care Application Security Developer Name Role Phone Person, Evy CLEARY Primary Care Provid er Source Comments [facility],non-owned Affiliates and Associated Physician Practices is amultiple site organization consisting of ambulatory clinics and hospital sitesin [place], [place], [place] and [place]. This disclosure is being madepursuant to the Care Everywhere program and may not contain all information available regarding this patient. Last updated 17.[facility] [employer] Allergies Active Allergy Reactions Criticality Noted Date Comments Ketamine Other 05/04/2023 Severe Anxiety [place] Flavor Swelling,Urticaria Medium 11/26/2016 [facility] Pap[facility] Enzyme [...] mg) / 24 hours. 05/06/19 24 Active hydrOXYzine HCl (Atarax) 25 MG [...] by mouth at bedtime 30 tablet 1 12/17/19 25 Active sertraline (Zoloft) 100 MG tablet Take 2 (two) tablets by mouth once daily 60 tablet 1 12/17/19 25 Active OXcarbazepine (Trileptal) 300 MG tabletIndications :Nonintractable epilepsy without status epilepticus, unspecified epilepsy type (HCC) Take 1 (one) tablet by mouth 2 times daily 90 tablet 3 01/20/20 25 Active levETIRAcetam (Keppra) 750 MG tablet Take 2 (two) tablets by mouth 2 times daily 360 tablet 01/20/20 25 Active levETIRAcetam (Keppra) 750 MG tablet TAKE 2 TABLETS BY MOUTH TWICE DAILY 360 tablet 07/27/19 24 025 Discontin ued(Reord er) OXcarbazepine (Trileptal) 300 MG tabletIndications :Nonintractable epilepsy without status epilepticus, unspecified epilepsy type (HCC) TAKE 1 TABLET BY MOUTH TWICE DAILY 90 tablet 3 09/21/19 24 025 Discontin ued(Reord er) Active Problems Patient Care Coordination No te Formatting of this note migh t be different from the original. [facility] 12/2016 Problem Noted Date Diagnosed Date Primary [...] organization. Date Type Department Care Team Description 01/19/2025 Refill [facility] [address] [facility] [facility] [place] [phone] Gabe Holland MD 01/19/2025 Telephone [facility] [address] [facility] [place] [address] Cary Williamson DO 12/14/2024 Travel from Last 3 Months Immunizations Immunization [...] Sign Reading Time Taken Comments Blood Pressure 103/80 12/14/2024 10:34 AM CDT Pulse 83 10/11/2024 2:00 PM CDT Temperature 36.6 C (97.8 F) 04/22/2024 3:40 PM PROPERTY UNDERWRITER Respiratory Rate 18 05/22/2023 10:42 AM PROPERTY UNDERWRITER Oxygen Saturation 97% 12/14/2024 10:34 AM CDT Inhaled Oxygen Concentration - - Weight 61.7 kg (136 lb) 12/14/2024 10:34 AM CDT Height 165.1 cm (5' 5) 04/22/2024 3:40 PM PROPERTY UNDERWRITER Body Mass Index 22.63 04/22/2024 3:40 PM PROPERTY UNDERWRITER Plan of Treatment Upcoming Encounters Date Type Department Care Team (Late st Contact Info) Description 04/27/2025 1:45 PM PROPERTY UNDERWRITER Office Visit [facility] [address] [facility] [place] [address] Gabe Holland MD [address] [facility] [place] [address] Health Maintenance Due Date Last Done Comments PNEUMOCOCCAL VACCINE (1 of 2 - PCV) 02/14/2008 PAP SMEAR 2010 HPV VACCINE (1 - 3-dose SCDM series) 02/14/2016 COVID-19 VACCINE ( - season) 2024 INFLUENZA VACCINE (#1) 2024 03/17/2019, 2016 DTAP/TDAP/TD VACCINES (2 - Td or Tdap) 03/18/2027 03/18/2017 ZOSTER VACCINE (1 of 2) 2039 HIV SCREENING Completed 03/04/2017 HEPATITIS C SCREENING Completed 03/20/2023 HEPATITIS B VACCINE Completed 09/23/2023, 05/21/2023, 03/20/2023 DEPRESSION SCREENING Discontinued 12/14/2024, 10/11/2024, 08/17/2024, Additional history exists HIB VACCINE Aged Out [...] RFLX NAAT QUANT Routine 03/20/2023 10:57 AM PROPERTY UNDERWRITER Routine adult health maintenance HIV-1 HIV-2 ANTIBODY + HIV P24 AG PANEL Routine 03/04/2017 12:55 PM PROPERTY UNDERWRITER Supervision of high risk in first trimester from Last 3 Months or Most Recently Relevant to Health Maintenance Results * HEPATITIS C AB SCREEN RFLX NAAT QUANT (03/20/2023 10:57 AM PROPERTY UNDERWRITER) Pathologist [facility] Hepatitis C Antibody Non-react jordyn Non-reac tive 03/20/2023 12:41 PM PROPERTY UNDERWRITER [facility] Comment:Hepatitis C Antibody screen [...] Lab Venipuncture / Unknown 03/20/2023 10:57 AM PROPERTY UNDERWRITER 03/20/2023 11:18 AM PROPERTY UNDERWRITER us Evy Cormier APRN-SIMRAN LAB - CHEMISTRY SARKIS SIMPSON Final Result Performing Organization Address City/[facility]/ZIP Co de Phone Number [facility] [address] [place] [address], [facility] [phone] * HIV-1 HIV-2 ANTIBODY + HIV P24 AG PANEL (03/04/2017 12:55 PM PROPERTY UNDERWRITER) Pathologist [facility] HIV1/2 Ab + P24 Ag Non Reactive Non Reactive 03/04/2017 4:59 PM PROPERTY UNDERWRITER [facility] Blood BLOOD SPECIMEN / Unknown Venipuncture / Unknown 03/04/2017 12:55 PM PROPERTY UNDERWRITER 03/04/2017 1:51 PM PROPERTY UNDERWRITER Narrative [facility] - 03/04/2017 4:59 PM PROPERTY UNDERWRITER No Laboratory evidence of HIV infection. us Beto Hernandez MD LAB - CHEMISTRY ORDERABLES Final Result Performing Organization Address City/[facility]/ZIP Co de Phone Number [facility] [place] [address] from Last 3 Months or Most Recently Relevant to Health Maintenance Insurance MEDICAID - OUT OF [facility] Advance Directives * Full Code (Latest Code [...] 8:41 PM 11/28/2016 6:05 PM Care Teams Application Security Developer Relationship Specialty Start Date End Date PersonEvy APRN-SIMRAN PCP - General Nurse Practitioner Family 03/20/23
[2025-01-22 12:00] VITALS: BP 116/70; PULSE 89; RESP 23; TEMP 36.7; O2SAT 98
[2025-01-22 12:27] LABS: EDCOVIDSCREEN Negative (Negative); EDINFLUASCREEN Negative (Negative); EDINFLUBSCREEN Negative (Negative); EDSTREPNEGPOS1 Negative (Negative)
--- NOTE | 2025-01-22 12:32 | ED.URI ---
HPI - URI/Sore Throat General Chief Complaint: Upper Respiratory Infection Stated Complaint: headache/cough/ears Time Seen by Provider: 01/22/25 12:32 Source: patient, RN notes reviewed and old records reviewed Mode of arrival: ambulatory Limitations: no limitations History of Present Illness HPI Narrative: 34-year-old female presents to the [facility] with a 4 day history of ear pressure, dry cough, sinus pressure. Has taken Tylenol and ibuprofen this morning. No other treatment. Treatments prior to arrival: acetaminophen and ibuprofen Related Data Home Medications ?Medication ?Instructions ?Recorded ?Confirmed ?Last Taken ?Type levonorgestrel-ethinyl estradiol 1 tablet PO DAILY 05/03/23 01/09/25 Unknown History 90 mcg-20 mcg (28) tablet (Laura (28)) sertraline 100 mg tablet 150 mg PO DAILY 09/16/23 01/09/25 Unknown History guanfacine 2 mg tablet mg 09/10/24 01/09/25 Unknown History Allergies Allergy/AdvReac Type Severity Reaction Status Date / Time tari Allergy Severe THROAT Verified 01/22/25 12:08 SWELLING, FACIAL SWELLING ketamine AdvReac Intermediate Anxiety Verified 01/22/25 12:08 Review of Systems Review of Systems: All systems reviewed & are unremarkable except as noted in HPI and below Constitutional: Constitutional: Reports no additional constitutional complaints ENT: Reports as per HPI, Reports otalgia and Reports nasal congestion Cardiovascular: Cardiovascular: Reports no additional cardiovascular complaints, Denies chest pain and Denies dyspnea Respiratory: Respiratory: Reports as per HPI, Denies chest congestion, Reports cough and Denies dyspnea Musculoskeletal: Musculoskeletal: Reports no additional musculoskeletal complaints Integumentary/Breasts: Skin/Breast: Reports system reviewed and no additional complaints, except as docu PMFSH Past Medical History Medical History IBS (irritable bowel syndrome) Seizure epilepsy, last one one month ago (focal seizure) takes daily meds Surgical History Surgical History No pertinent past surgical history Family History Family History Mother Family history non-contributory Social History Social History (Reviewed 01/22/25 @ 19:24 by BE Hurd Smoking status: Former smoker Alcohol intake: never Substance use: current Substance use type: marijuana Other substance usage details: daily Do You Feel Safe in your Home?: Yes Lack of Transportation: No Lack of Food: Never True Current Housing: I Have Housing Concerned About Future Housing: No Difficulty Paying Gas/Electric Bills: No Difficulty Paying for Meds: No Currently Unemployed: No Education: High School Diploma/GED Difficulty w/ Childcare or Family Care: No Living arrangements: with family Additional occupation/education comments: lives with boyfriend Gender identity (if verbalized by the patient): Female Sexual Orientation (if Verbalized by the Patient): Straight or Heterosexual Spiritual care concerns: No Comments At the time of my signature, I reviewed and agree with the nursing past medical, surgical, social, and family history. There is no relevant family history pertinent to the patient complaint. Exam Const: General: cooperative, healthy appearing, comfortable, no acute distress, well developed, alert and well nourished Nutritional Appearance: well nourished Orientation/consciousness: patient oriented x3 Limitations: no limitations HENMT: Head: normal to inspection Ears: hearing grossly normal bilaterally, external ears normal, TM's normal bilaterally, EAC's normal, mastoids normal and no periauricular adenopathy Face/Nose/Sinus: Normal external nose present and Normal nasal mucous membranes and turbinates present Face and sinus: normal facial exam and face symmetric Mouth: Yes Normal oral and palatal mucosa present, Yes lip normal, Yes tongue normal and Yes moist mucous membranes abnormal Throat: posterior oropharynx normal, uvula midline and no uvular edema Eyes: General: appearance normal, both eyes and all related structures Alignment and Position: alignment normal Neck: Neck: normal visual inspection, full ROM, no lymphadenopathy and no meningeal signs Chest: Chest palpation & inspection: normal inspection of the chest Resp: Effort & Inspection: normal respiratory effort and able to speak in complete sentences Auscultation: clear to auscultation bilaterally, no crackles, no rales, no rhonchi and no wheezes Cardio: Rate: regular rate Skin: General skin exam: normal color and no rashes or lesions noted Neuro: General: patient oriented x3, gait normal, moves all extremities and no meningeal signs Cognition (Neuro): normal cognition Speech: normal speech Gait exam (Neuro): Normal gait present Extrem: General: normal to inspection, full ROM, capillary refill normal and normal gait Psych: Appearance: grossly normal and well kempt Mental Status: mental status grossly normal Speech and movement: Normal speech and movement present and Clear speech present Affect: normal affect Attitude: cooperative Course Course Level of Care: Express Care Visit Vital Signs Vital signs: Vital Signs Temperature 98.0 F 01/22/25 12:00 Pulse Rate 89 01/22/25 12:00 Respiratory Rate 23 H 01/22/25 12:00 Blood Pressure 116/70 01/22/25 12:00 Pulse Oximetry 98 01/22/25 12:00 Oxygen Delivery Room Air 01/22/25 12:00 Temperature 98.0 F 01/22/25 12:00 Pulse Rate 89 01/22/25 12:00 Respiratory Rate 23 H 01/22/25 12:00 Blood Pressure 116/70 01/22/25 12:00 Pulse Oximetry 98 01/22/25 12:00 Oxygen Delivery Room Air 01/22/25 12:00 Reviewed MDM - URI/Sore Throat MDM Narrative Medical decision making narrative: Patient sitting in exam room. Patient is nontoxic, vitals stable. Patient presents with 4 day history of URI symptoms. Flu COVID strep were negative, will strep culture. No acute findings noted on exam. Lab Data Labs: Lab Results 01/22/25 Range/Units 12:08 POC Influenza A Ag Negative (Negative) POC Influenza B Ag Negative (Negative) POC SARS CoV-2 Ag Negative (Negative) POC Grp A Strep Screen Negative (Negative) Reviewed Critical Care Time Critical Care Time Critical Care Time: No Discharge Plan Discharge Clinical Impression: Sinusitis Qualifiers: Sinusitis location: pansinusitis Chronicity: acute Recurrence: not specified as recurrent Qualified Code(s): J01.40 - Acute pansinusitis, unspecified Patient Disposition: Home Condition: Stable Instructions: Antibiotic Form, Sinusitis (ED) Additional Instructions: Your rapid strep swab was negative today at [facility]. A throat culture will be sent to the laboratory for further testing. If the test is positive, you will receive a phone call within 48 hours and an appropriate antibiotic will be initiated at that time. Your rapid COVID test were negative Your rapid flu test was negative Typically viral infections last 7-10 days, can linger for couple of weeks. It is very important to treat your symptoms. Drink plenty of water, Gatorade, Pedialyte, ice pops or Jell-O. -Alternate Tylenol and Motrin per package directions for fever or pain. You can alternate every 4 hours -Antihistamine medication such as Zyrtec/Claritin/Kimberly during the day can help improve symptoms. -doing daily nasal irrigations can help relieve pressure your sinuses. Things like a Neti pot -Use Flonase twice a day for 5 days then daily to help reduce the inflammation and dry up your sinuses. -You can also use Mucinex. Be sure to drink plenty of water with this medication at least 8 ounces with every dose and it is important to drink 8 to 10 glasses of water per day. Water is a natural decongestant -Eat and drink things that are easy to swallow, like tea or soup, or popsicles. -Oral rinses such as: Salt water gargles and/or may use topical anesthetic (eg. Chloraseptic spray) or lozenges to relieve dryness or throat pain). -Frequent hand washing or hand ion implant machine operator is one of the best ways to prevent spread of infection. -Using a vaporizer or humidifier at night will also help thin secretions and help with coughing up phlegm. -Follow up with primary care provider in 7-10 days if condition is not improving - For new or worsening symptoms go directly to the nearest ER Patient Language: [place] Islander Prescriptions: New fluticasone propionate [Flonase Allergy Relief] 50 mcg/actuation spray,suspension 2 spray intranasal DAILY Qty: 16 0RF Rx Instructions: administer into each nostril No Action sertraline 100 mg tablet 150 mg PO DAILY levonorgestrel-ethinyl estrad [Laura (28)] 90-20 mcg (28) tablet 1 tablet PO DAILY guanfacine 2 mg tablet levetiracetam 750 mg tablet 1,500 mg PO BID Qty: 120 5RF oxcarbazepine [Trileptal] 300 mg tablet 600 mg PO BID Qty: 120 5RF Follow-up/Referrals: PHYSICIAN NOT ON STAFF,NONSTAFF [Primary Care Provider] Stand Alone Forms: Work/School Release IP Time of Disposition: 12:42
== END 2025-01-22 12:45 | disposition home or self-care (01) ==
PROVIDERS: Emergency Provider Nurse Practitioner
DX: J01.40 Acute pansinusitis, unspecified (principal); Z20.822 Contact with and (suspected) exposure to COVID-19; F12.90 Cannabis use, unspecified, uncomplicated; G40.909 Epilepsy, unspecified, not intractable, without status epilepticus; Z87.891 Personal history of nicotine dependence
CPT/HCPCS: 87081; 87426; 87804; 87880; 99213; G0463